=== PATIENT | male | born 1965 | race Hispanic/Latino ===

== ENCOUNTER 2017-04-16 20:54 | Inpatient (IN) | payer SELFPAY ==
[~2017-04-16 20:54] MED LIST: ISOVUE-370 76%-LOCM 1 ML ONE
--- NOTE | 2017-04-16 21:53 | RAD ---
RIGHT FOOT THREE VIEWS: 04/16/17 HISTORY: Injection of acid into the right foot. There is some mild arthritic changes in the first metatarsophalangeal joint. No radiopaque foreign toney dies are seen. there is soft tissue swelling on the dorsum of the foot. IMPRESSION: Soft tissue swelling of the dorsum of the foot. No radiopaque foreign bodies. POS: [facility]
[2017-04-16 22:09] LABS: INR-International Normal Ratio 1.5; PTT 33.2 SEC (22.9-36.1); Prothrombin Time 18.3 SEC (12.0-14.7)
[2017-04-16 22:24] LABS: CRP (Inflammatory) 21.21 mg/dL (= or < 0.5)
[2017-04-16 22:25] LABS: ALT (SGPT) 30 U/L (8-55); AST (SGOT) 43 U/L (5-34); Albumin 2.4 g/dL (3.5-5.0); Alkaline Phosphatase 138 U/L (40-150); Anion Gap 12 mmol/L (10-20); BUN (Urea Nitrogen) 29 mg/dL (8.9-20.6); Bilirubin, Total 1.4 mg/dL (0.2-1.2); Calc. Creatinine Clearance 0 mL/min (70-130); Carbon Dioxide 26 mmol/L (22-29); Chloride 101 mmol/L (98-107); Estimated GFR-MDRD Greater than 90; Globulin 4.5 g/dL (2.4-3.5); Glucose 139 mg/dL (70-105); Potassium 4.3 mmol/L (3.5-5.1); Protein, Total 6.9 g/dL (6.0-8.3); Sodium 135 mmol/L (136-145)
[2017-04-16] MEDS ORDERED: Clindamycin/D5W 900 MG in Premix Bag 1 BAG IVPB SCH (22:30)
[2017-04-16 22:35] LABS: Band 18 % (5-11); Hemoglobin 12.4 g/dL (14.0-18.0); Hypochromia SLIGHT = 6-15 cells (100X) (0-5/hpf); Lymphocytes 3 % (21-51); MDiff Complete? YES; Macrocytosis SLIGHT = 6-15 cells (100X) (0-5/hpf); Mean Corpuscular HGB CONC 32.1 g/dL (32.0-36.0); Mean Corpuscular Hemoglobin 31.3 pg (27.0-31.0); Mean Corpuscular Volume 97.6 fl (80.0-94.0); Mean Platelet Volume 7.2 fL (7.4-10.4); Monocytes 5 % (0-10); Neutrophil 74 % (42-75); Nucleated RBC 1 % (0); PLT Morphology Comment Appears Increased; Platelet Count 474 thou/uL (130-400); RBC Distribution Width 13.8 % (11.5-14.5); Red Blood Cell (RBC) Count 3.94 mill/uL (4.70-6.10); White Blood Cell (WBC) Count 36.5 thou/uL (4.8-10.8)
--- NOTE | 2017-04-16 22:43 | ULT ---
RIGHT LOWER EXTREMITY VENOUS DUPLEX EXAM: 04/16/17 HISTORY: Right foot edema and infection. Real time color doppler evaluation of the right lower extremity was performed from groin to calf. Thi s includes evaluation of the common femoral, superficial and profunda femoral, saphenous, popliteal a nd trifurcation veins. This shows a patent deep venous system. There is normal compressibility and au gmentation. There is no evidence of DVT. IMPRESSION: No evidence of DVT of the right lower extremity. POS: [facility]
[2017-04-16 23:19] LABS: Bilirubin Negative (Negative); Blood, Urine Negative (Negative); Clarity CLEAR (Clear); Glucose, Urine (Dipstick) Negative (Negative); Leukocyte Negative (Negative); Nitrite Negative (Negative); Protein, Urine (Dipstick) Negative (Neg-Trace); Specific Gravity, Urine 1.024 (1.002-1.036)
--- NOTE | 2017-04-16 23:19 | CT ---
CT OF RIGHT TIBIA AND FIBULA PERFORMED WITH INTRAVENOUS CONTRAST ENHANCEMENT: 04/16/17 HISTORY: Patient with right foot infection, erythema localized to the foot initially but now extending up the leg. There is subcutaneous edema changes which began at the level of the foot and extends all the way to t he level of the knee. There is a small knee joint effusion present. The muscle compartments appear re latively uninfected with the exception of some low attenuation change within the posterior tibialis m uscle near its origin proximally but there is no edema changes or signs that would suggest a compartm ent syndrome. There is a small amount of fluid seen between the gastroc and soleus muscle. No air is seen within the soft tissues to suggest this represents a necrotizing fasciitis. Review of osseous structures showed no signs that would suggest osteomyelitis. IMPRESSION: 1. Findings that are most compatible with diffuse cellulitis. The one exception to this is some low attenuation change within the proximal posterior tibialis muscle which is located directly anter ior to the popliteal artery and vein and their branches. There is no inflammatory change in this area but this low attenuation change could indicate involvement of this area. It would be a somewhat unus ual presentation given the lack of any surrounding findings. I do not see any signs of necrotizing fa sciitis. MRI may be helpful in further assessment to evaluate for a subtle early compartment changes if indicated. I do not see any features that suggest compartment syndrome at this time. 2. No signs of DVT within the calf. POS: [facility]
--- NOTE | 2017-04-17 01:15 | HP ---
PRIMARY CARE PHYSICIAN: City call admission. REASON FOR ADMISSION: Right foot cellulitis. HISTORY OF PRESENT ILLNESS: A 51-year-old male, Swazi speaking only, who went to [facility] for right foot swelling as well as right lower extremity swelling. He was having throbbing pain, he noticed erythema and swelling, which was gradually getting worse. His intensity of pain is about 8/10. Patient was not able to walk because of pain. He has history of gout and he was treated with Indocin and steroid. He was feeling subjective fever and chills. This patient was evaluated at [facility] and he was given vancomycin, tetanus toxoid , Zosyn, Rocephin, Zofran, and IV fluid and subsequently he was transferred to our hospital. In the emergency room, patient had foot x-ray which showed soft tissue swelling of the dorsum of the foot without any bony involvement. Lower extremity CT scan showed diffuse cellulitis and ultrasound was confirmed, no DVT. Routine blood tests showed white count 36,000 with bandemia. Patient also altamirano d significantly elevated inflammatory marker. In our emergency room, patient was given clindamycin a nd IV fluid and we are admitting this patient for further evaluation and treatment. ALLERGIES: No known drug allergies. CURRENT HOME MEDICATIONS: Indomethacin 50 mg twice daily p.r.n., prednisone tapering doses was presc ribed recently, Tylenol No.3 one tablet q.4 hours p.r.n. REVIEW OF SYSTEMS: The following complete review of systems was negative, unless otherwise mentioned in the HPI or below: Constitutional: Weight loss or gain, ability to conduct usual activities. Sk in: Rash, itching. Eyes: Double vision, pain. ENT/Mouth: Nose bleeding, neck stiffness, pain, te nderness. Cardiovascular: Palpitations, dyspnea on exertion, orthopnea. Respiratory: Shortness of breath, wheezing, cough, hemoptysis, fever or night sweats. Gastrointestinal: Poor appetite, abdom inal pain, heartburn, nausea, vomiting, constipation, or diarrhea. Genitourinary: Urgency, frequenc y, dysuria, nocturia. Musculoskeletal: Pain, swelling. Neurologic/Psychiatric: Anxiety, depressio n. Allergy/Immunologic: Skin rash, bleeding tendency. Please see my HPI for pertinent positives an d negatives. PAST MEDICAL HISTORY: Gout. PAST SURGICAL HISTORY: Reviewed and negative. PAST PSYCHIATRIC HISTORY: Reviewed and negative. SOCIAL HISTORY: Patient is a former drug abuser. He abused marijuana. His last marijuana abuse abo ut 2 years ago. He drinks alcohol socially. He smokes cigarettes about a half pack per day. FAMILY HISTORY: No strong family history of premature coronary artery disease, stroke, or cancer. EMERGENCY ROOM COURSE: Patient is given vancomycin and clindamycin. The patient is given Zosyn, Lul ephin, tetanus toxoid, and IV fluid in the emergency room. PHYSICAL EXAMINATION: VITAL SIGNS: On arrival to our emergency room, blood pressure 120/69, pulse 70, respiratory rate 20, temperature 97.6, saturation 100% on room air, weight 77.1 kilograms. GENERAL: Patient is currently alert, awake, in no acute distress. HEAD: Normocephalic, atraumatic. EYES: Pupils round, reactive to light. Extraocular muscle intact. ENT: Oropharynx within normal limits. Moist mucous membranes. No oral lesions. No pharyngeal eryt madie, no exudate. NECK: Supple. No JVD, no thyromegaly, no carotid bruit, no jugular venous distention. LUNGS: Clear to auscultation without any rhonchi or rales. CARDIAC: S1, S2 regular without any murmur. ABDOMEN: Soft, bowel sounds present, nontender, nondistended. No organomegaly, no mass, no suprapub ic tenderness. BACK: Unremarkable. No CVA tenderness. EXTREMITIES: Upper extremity: Passive movement of all joints are normal. Lower extremity: Right l ower extremity is erythematous, swollen, tender. The patient does have 5-6 bullae at the right foot. Patient has bullae with the pus. NEUROLOGIC: Nonfocal examination. Patient moves all 4 limbs. SKIN: Noted cellulitis picture on the right foot. HEMATOLOGIC: No lymphadenopathy. PSYCHIATRIC: Normal affect. SIGNIFICANT LABORATORY AND DIAGNOSTIC DATA: CBC: WBC 36.5, hemoglobin 12.4, platelet 474 with bande alicja. INR 1.5. BMP: Sodium 135, potassium 4.3, chloride 101, carbon dioxide 26, anion gap 12, BUN 2 9, creatinine 0.82, glucose 139. Lactic acid 2.1, calcium 8.0, magnesium 2.0, AST 43, ALT 30, alkali ne phosphatase 138, albumin 2.4. Urinalysis normal. Foot x-ray showed soft tissue swelling. Lower extremities CT scan showed diffuse cellulitis of right lower extremity. Ultrasound negative for DVT. ASSESSMENT AND PLAN: 1. Right foot cellulitis. 2. Sepsis. 3. Coagulopathy. 4. Hypoalbuminemia. 5. Abnormal liver function tests. 6. History of gout. 7. History of tobacco and alcohol abuse. PLAN: Admission to medical floor, Orthopedic consultation, and they will decide about I and D with b road spectrum antibiotic therapy with vancomycin and Zosyn. Dr. Ramsey will be consulted. Pain contr ol with morphine p.r.n. basis. We will repeat CBC, CMP tomorrow. We will also check hepatitis profi le. We will check uric acid tomorrow. Deep venous thrombosis prophylaxis. SCD boots. Gastrointest inal prophylaxis, Pepcid 20 mg p.o. b.i.d. CODE STATUS: The patient is FULL CODE. Patient does not have any surrogate decision maker. Disposition plan based on clinical course. We are expecting patient's stay in hospital more than 2 m idnights. Plan of care discussed with the patient in detail.
[2017-04-17] MEDS ORDERED: Acetaminophen 325 MG TAB PO PRN (01:52)
[2017-04-17] MEDS ORDERED: Milk Of Magnesia 30 ML UDCUP PO PRN (01:52)
[2017-04-17] MEDS ORDERED: Senokot 8.6 MG TAB PO PRN (01:52)
[2017-04-17] MEDS ORDERED: hydrALAZINE 20 MG/ML VIAL SLOW IVP PRN (01:52)
[2017-04-17] MEDS ORDERED: Loperamide HCl 2 MG CAP PO PRN (01:52)
[2017-04-17] MEDS: Sodium Chloride 0.9% 1,000 ML IV SCH ×4 (02:14→23:48)
[2017-04-17 02:23] LABS: Lactic Acid 2.4 mmol/L (0.5-2.2)
[2017-04-17 05:04] LABS: ALT (SGPT) 28 U/L (8-55); AST (SGOT) 55 U/L (5-34); Alkaline Phosphatase 113 U/L (40-150); Anion Gap 14 mmol/L (10-20); BUN (Urea Nitrogen) 25 mg/dL (8.9-20.6); Bilirubin, Total 1.1 mg/dL (0.2-1.2); Calc. Creatinine Clearance 0 mL/min (70-130); Calcium 7.8 mg/dL (7.8-10.44); Carbon Dioxide 24 mmol/L (22-29); Chloride 104 mmol/L (98-107); Estimated GFR-MDRD Greater than 90; Globulin 4.3 g/dL (2.4-3.5); Glucose 108 mg/dL (70-105); Potassium 4.8 mmol/L (3.5-5.1); Protein, Total 6.3 g/dL (6.0-8.3); Sodium 137 mmol/L (136-145); Uric Acid 4.2 mg/dL (3.5-7.2)
[2017-04-17 05:37] LABS: Band 11 % (5-11); Hemoglobin 11.3 g/dL (14.0-18.0); Lymphocytes 9 % (21-51); MDiff Complete? YES; Macrocytosis SLIGHT = 6-15 cells (100X) (0-5/hpf); Mean Corpuscular HGB CONC 33.2 g/dL (32.0-36.0); Mean Corpuscular Hemoglobin 32.7 pg (27.0-31.0); Mean Corpuscular Volume 98.5 fl (80.0-94.0); Mean Platelet Volume 7.9 fL (7.4-10.4); Metamyelocyte 3 % (0-0); Monocytes 3 % (0-10); Myelocyte 1 % (0-0); Neutrophil 73 % (42-75); PLT Morphology Comment Appears Adequate; Platelet Count 409 thou/uL (130-400); RBC Distribution Width 13.9 % (11.5-14.5); Red Blood Cell (RBC) Count 3.47 mill/uL (4.70-6.10); White Blood Cell (WBC) Count 34.3 thou/uL (4.8-10.8)
[2017-04-17 06:24] VITALS: BMI 29.1
[2017-04-17] MEDS: Piperacillin/Tazobactam 3.375 GM in Sodium Chloride 0.9% 100 ML IVPB SCH ×4 (06:29→23:47)
[2017-04-17] MEDS: HYDROcodone/Acetaminophen 10/325 mg Tablet PO PRN ×2 (11:33→23:48)
[2017-04-17] MEDS: Vancomycin HCl 1.5 GM in Sodium Chloride 0.9% 250 ML 300 ML IVPB SCH ×2 (11:34→20:32)
--- NOTE | 2017-04-17 11:38 | PDOC.PN ---
- Subjective Encounter Start Date: 04/17/17 Encounter Start Time: 07:15 Subjective: has pain in right foot, has drainage of purulent material from blisters ove -: -r lateral ankle - Objective Resuscitation Status: Resuscitation Status FULL:Full Resuscitation MAR Reviewed: Yes Vital Signs & Weight: Vital Signs (12 hours) Temp Pulse Resp BP Pulse Ox 04/17/17 07:50 97.4 F L 89 24 H 112/67 97 04/17/17 04:00 97.9 F 84 16 109/66 98 04/17/17 01:52 98.5 F 78 16 98 Weight Weight 169 lb 15.622 oz Result Diagrams: 04/17/17 03:39 04/17/17 03:39 Phys Exam - Physical Examination HEENT: PERRLA, moist MMs Neck: no JVD, supple Respiratory: no wheezing, no rales Cardiovascular: RRR, no significant murmur Gastrointestinal: soft, non-tender, positive bowel sounds Musculoskeletal: pulses present, edema present right ankle multiple blisters with purulence, edema and erythema++ Neurological: non-focal, moves all 4 limbs Psychiatric: A&O x 3 Dx/Plan (1) Sepsis Code(s): A41.9 - SEPSIS, UNSPECIFIED ORGANISM Status: Acute Qualifiers: Sepsis type: sepsis due to unspecified organism Qualified Code(s): A41.9 - Sepsis, unspecified organism (2) Foot abscess, right Code(s): L02.611 - CUTANEOUS ABSCESS OF RIGHT FOOT Status: Acute (3) Cellulitis of right lower limb Code(s): L03.115 - CELLULITIS OF RIGHT LOWER LIMB Status: Acute (4) Gout Code(s): M10.9 - GOUT, UNSPECIFIED Status: Chronic Qualifiers: Gout site: unspecified site (5) Alcohol abuse Code(s): F10.10 - ALCOHOL ABUSE, UNCOMPLICATED Status: Chronic Comment: drinks 4-6 beers/day (6) Tobacco abuse Code(s): Z72.0 - TOBACCO USE Status: Chronic (7) Hypoalbuminemia due to protein-calorie malnutrition Code(s): E46 - UNSPECIFIED PROTEIN-CALORIE MALNUTRITION Status: Chronic Comment: and alc abuse - Plan urgent MRI to evaluate foot and ankle area for debridement -: has been consulted -: is on vanc and zosyn -: toradol, morphine, norco prn -: has alb of 2.0 likely due to poor nutrition and alc abuse * . Review of Systems - Medications/Allergies Allergies/Adverse Reactions: Allergies Allergy/AdvReac Type Severity Reaction Status Date / Time No Known Allergies Allergy Unverified 04/16/17 22:20 Medications: Current Medications Acetaminophen (Tylenol) 650 mg PO Q4H PRN PRN Reason: Headache/Fever or Pain Hydrocodone Bitart/Acetaminophen ([place] 10/325) 1 tab PO Q4H PRN PRN Reason: Moderate Pain (4-6) Last Admin: 04/17/17 11:33 Dose: 1 tab Al Hydroxide/Mg Hydroxide (Maalox) 30 ml PO Q6H PRN PRN Reason: Heartburn or Indigestion Cyanocobalamin (Vitamin B-12) 1,000 mcg PO DAILY [facility] Enoxaparin Sodium (Lovenox) 40 mg SC 0900 [facility] Famotidine (Pepcid) 20 mg PO BID [facility] Folic Acid (Folvite) 1 mg PO DAILY [facility] Hydralazine HCl (Apresoline) 10 mg SLOW IVP Q4H PRN PRN Reason: Systolic BP > 180 Sodium Chloride (Normal Saline 0.9%) 1,000 mls @ 125 mls/hr IV .Q8H [facility] Last Admin: 04/17/17 02:14 Dose: 1,000 mls Piperacillin Sod/Tazobactam (Sod 3.375 gm/ Sodium Chloride) 100 mls @ 200 mls/ hr IVPB Q6HR [facility] Last Admin: 04/17/17 06:29 Dose: 100 mls Vancomycin HCl 1.5 gm/ Sodium (Chloride) 300 mls @ 200 mls/hr IVPB Q12HR [facility] Last Admin: 04/17/17 11:34 Dose: 300 mls Influenza Virus Vaccine (Fluzone Quad [id number] Syringe) 0.5 ml IM .ONCE ONE Stop: 04/18/17 09:01 Ketorolac Tromethamine (Toradol) 15 mg IVP Q6H PRN PRN Reason: Pain Stop: 04/22/17 01:53 Loperamide HCl (Imodium) 2 mg PO PRN PRN PRN Reason: Diarrhea/Loose Stools Magnesium Hydroxide (Milk Of Magnesium) 30 ml PO DAILYPRN PRN PRN Reason: Constipation Miscellaneous Medication (Pharmacy To Dose) 0 each IVPB PRN PRN PRN Reason: VANC Pharmacy to Dose Morphine Sulfate (Morphine) 4 mg SLOW IVP Q4H PRN PRN Reason: Severe Pain (7-10) Ondansetron HCl (Zofran Odt) 4 mg PO Q6H PRN PRN Reason: Nausea/Vomiting Ondansetron HCl (Zofran) 4 mg IVP Q6H PRN PRN Reason: Nausea/Vomiting Pneumococcal Polyvalent Vaccine (Pneumovax 23) 0.5 ml IM .ONCE ONE Stop: 04/18/17 09:01 Saccharomyces Boulardii (Florastor) 250 mg PO DAILY [facility] Senna (Senokot) 2 tab PO HSPRN PRN PRN Reason: Constipation Sodium Chloride (Flush - Normal Saline) 10 ml IVF Q12HR [facility] Last Admin: 04/17/17 11:35 Dose: 10 ml Sodium Chloride (Flush - Normal Saline) 10 ml IVF PRN PRN PRN Reason: Saline Flush
--- NOTE | 2017-04-17 13:59 | MRI ---
MRI OF RIGHT TIBIA AND FIBULA PERFORMED WITH AND WITHOUT CONTRAST ENHANCEMENT: History: Patient presented with right foot infection, now with diffuse swelling to calf. Comparison: CT done yesterday. FINDINGS: Exam quality is somewhat limited by motion artifact. There is marked superficial edema changes. There are also myositis type changes with involvement to s ome extent all of the calf musculature with greater involvement involving the extensor halitus longus and gastroc muscles, and to a lesser extent the psoas muscles. The most pronounced edema changes are associated with a deep posterior compartment involving the posterior tibials tendon. It shows edema changes with somewhat dumbbell shaped foci of increased T2 signal change near the proximal origin of the posterior tibials tendon and in these areas the muscle shows some foci that do not appear to enha nce corresponding these areas of higher T2 signal change which would suggest an early foci of myonecr osis. There is some mild bulging of the facial planes in this region. There is edema changes which ex tend between the gastroc and psoas musculature. IMPRESSION: 1. Diffuse subcutaneous edema changes compatible with cellulitis changes. No signs of any localized f luid collection to suggest any type of abscess. 2. Diffuse myositis changes involving all of the compartment. The most worrisome areas are in the ant erior lateral compartment involving the extensor halitus longus muscle which shows bulging but no fra nk herniation through the fascia. The most worrisome areas within the deep posterior compartment wher e there is findings that would suggest an early myonecrosis change of the proximal posterior tibials muscle. These findings were discussed with DR. Yang. [place] [facility]
[2017-04-17] MEDS: Folic Acid 1 MG TAB PO SCH (14:28)
[2017-04-17] MEDS: Saccharomyces boulardii 250 MG CAP PO SCH (14:28)
[2017-04-17] MEDS: Famotidine 20 MG TAB PO SCH ×2 (14:28→20:31)
[2017-04-17] MEDS: Cyanocobalamin (Vitamin B-12) 1,000 MCG TAB PO SCH (14:29)
[2017-04-17 15:30] LABS: Syphilis Antibody Nonreactive (Nonreactive); Syphilis Antibody Index 0.06 S/CO (<1.00 Non-Reactive)
[2017-04-17 15:31] LABS: HIV (1/2) Antibody/Antigen Non-Reactive (NonReactive); HIV 1/2 INDEX 0.12 S/CO (<1.00); Hep C IgG Ab Non-Reactive (NonReactive); Hep C Index 0.16 S/CO (0-0.79)
[2017-04-17] MEDS ORDERED: Gadobenate Dimeglumine 529 MG/1 ML (20ML VIAL) ONE (16:55)
[2017-04-17] MEDS: Morphine 5 MG/ML SYRINGE SLOW IVP PRN (18:40)
[2017-04-17] MEDS: Enoxaparin Sodium 40 MG/0.4 ML SYRINGE SC SCH (18:44)
--- NOTE | 2017-04-17 21:26 | CON ---
DATE OF CONSULTATION: 04/17/2017 REASON FOR CONSULTATION: Right foot inflammatory process. HISTORY OF PRESENT ILLNESS: A 51-year-old first admission to this hospital who has a history of alco hol dependency syndrome, chronic smoking and reportedly gout who developed right foot inflammatory ch anges over the past few days, was brought in and admitted after broad spectrum antimicrobial therapy administration in [place] [facility]. He denies headaches, no visual symptoms, sore throat, odynophagia , dysphagia, no cough or sputum production or chest pain. He had been given Indocin and prednisone t apering doses previously. No diarrhea, no genitourinary symptoms, no other joint symptoms. PAST MEDICAL HISTORY: Gout, chronic smoking, alcohol dependency syndrome. 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 Drinks daily, smokes daily. FAMILY HISTORY: Noncontributory. ALLERGIES: None. CURRENT MEDICATIONS: [place], Maalox, Lovenox, Pepcid, Folvite, Apresoline, Fluzone, Imodium, Toradol, Zosyn, and vancomycin. PHYSICAL EXAMINATION: VITAL SIGNS: T-max 98.5, blood pressure 112/67, pulse 81, respirations 22, O2 sat 98%. GENERAL: Appears in no distress. SKIN: Shows the right foot inflammatory changes with swelling. The blistering in the medial aspect, large blisters with purulent exudate within, we submitted the sample for cultures of one of them. T here is erythema in the medial aspect wrapping around the foot, the mid foot region, there is a littl e bit of blistering formation in the mid foot region at the arch. HEENT: No lymphadenopathy. Ocular movements are conjugate. Oral cavity with quite a few teeth in p lace with some decay. NECK: Supple, no jugular venous distention. LUNGS: With symmetric clear breath sounds. HEART: S1, S2, regular rate. No S3 or S4. No murmurs. ABDOMEN: Soft. Not distended or tender. No ascites. No bladder distention. EXTREMITIES: No other joint inflammatory process. Pulses are 1+ in dorsalis pedis. Cap refill norm al. NEUROLOGIC: Cognitive function appears to be intact. LABORATORY DATA: White cell count was 36 now 34,000; hemoglobin 11, platelets 409 with 18% bands, no w 11%, creatinine 0.74. Sodium 137, CO2 of 24, AST 43 and 55. ALT and alkaline phosphatase normal. CK 49. CRP 21, albumin 2.4. Urinalysis normal. Microbiology with 2 sets of negative blood culture s thus far. We have an MRI which was completed just recently and it showed subcutaneous edema, cellu litis, diffuse myositis in all the compartments of the foot and anterolateral compartment involving t he extensor longus muscle with bulging of the fascia, early myonecrosis. ASSESSMENT: Inflammatory process right foot with evidence of abscess formation and muscle involvemen t, pyomyositis. DISCUSSION: Patient has adequate vascular supply and will need surgical debridement. The most likel y culprit here is Staphylococcus aureus including the possibility of MRSA. Continue current antimicr obials, surgical debridement and define need for further intervention. No evidence of septic arthrit is or osteomyelitis at this point in time. Check hepatitis C and HIV serology as well as RPR.
--- NOTE | 2017-04-18 03:09 | CON ---
DATE OF CONSULTATION: 04/17/2017 HISTORY OF PRESENT ILLNESS: Mr. Eliel Madrid is a 51-year-old male who states that he was having no problems with his right foot and ankle 15 days ago, but approximately 2 weeks ago he began having pain, swelling, and redness in the right foot and ankle. He does not know of any history of trauma or insect bite or anything that could have caused the problem but he developed the erythema an d swelling which gradually got worse. He was seen in [place] [facility] and was given vanco mycin, Zosyn, Rocephin, Zofran, IV fluids, and then was transferred here for further evaluation. The patient had a CT scan performed. The leg showed cellulitis of right foot and ankle, but no DVT. MR I was performed which showed a diffuse subcutaneous edema change compatible with cellulitis changes, no signs of localized fluid collection to suggest any type of abscess. There was diffuse myositis ch anges involving all of the compartments most worrisome areas are in the anterior lateral compartment involving the extensor hallucis longus muscle which shows bulging, but no iggy herniation through th e fascia and there was worrisome areas in the deep posterior compartment where there were findings th at suggest an early myonecrosis changes of the proximal posterior tibialis muscle. The patient has b een on IV antibiotics since he was admitted today. He has not had any fever recorded since he has be en here today and his vital signs have been fine. PAST MEDICAL HISTORY: Allergies, none. CURRENT MEDICATIONS: Indomethacin, prednisone with tapering doses, Tylenol #3. MEDICAL HISTORY: The patient has a history of gout. PAST SURGICAL HISTORY: Negative. SOCIAL HISTORY: The patient is a former drug abuser, abused marijuana. Drinks alcohol socially, smo kes cigarettes about a half pack per day. PHYSICAL EXAMINATION: GENERAL: Patient has been afebrile. VITAL SIGNS: Have been stable. EXTREMITIES: Examination of the right foot and ankle shows tenderness and swelling in the right ankl e. There is an open wound and area of the tarsal canal along the medial aspect of the mid foot. The re is also a fluctuant area on the medial aspect of the mid foot laterally and into the lateral aspec t of the ankle. The patient is able to flex and extend his toes, although they have decreased range of motion, probably secondary to swelling. The left foot and ankle are normal in appearance. There is no swelling or erythema. No skin wounds. IMPRESSION: Severe cellulitis with formation of abscesses along the medial and lateral aspect of the right ankle and foot. PLAN: The patient has been started on antibiotics. He will continue with that. I will take him to the operating room tomorrow where the abscesses will be opened and the foot and ankle will be irrigat ed.
[2017-04-18] MEDS: Piperacillin/Tazobactam 3.375 GM in Sodium Chloride 0.9% 100 ML IVPB SCH ×2 (05:00→11:15)
[2017-04-18] MEDS: Morphine 5 MG/ML SYRINGE SLOW IVP PRN (07:59)
[2017-04-18] MEDS: Ketorolac Tromethamine 30 MG/ML VIAL IVP PRN ×2 (07:59→20:02)
[2017-04-18 08:54] LABS: Hemoglobin 11.2 g/dL (14.0-18.0); Mean Corpuscular Hemoglobin 31.6 pg (27.0-31.0); Mean Corpuscular Volume 98.7 fl (80.0-94.0); Mean Platelet Volume 7.2 fL (7.4-10.4); Platelet Count 424 thou/uL (130-400); RBC Distribution Width 13.9 % (11.5-14.5); Red Blood Cell (RBC) Count 3.53 mill/uL (4.70-6.10); White Blood Cell (WBC) Count 30.8 thou/uL (4.8-10.8)
[2017-04-18] MEDS: Vancomycin HCl 1.5 GM in Sodium Chloride 0.9% 250 ML 300 ML IVPB SCH ×3 (08:58→20:41)
[2017-04-18] MEDS: Saccharomyces boulardii 250 MG CAP PO SCH (09:00)
[2017-04-18] MEDS ORDERED: FLU VACC QS2017-18 36 mo. & older 0.5 ML SYRINGE IM ONE (09:00)
[2017-04-18] MEDS: Folic Acid 1 MG TAB PO SCH (09:01)
[2017-04-18] MEDS: Famotidine 20 MG TAB PO SCH ×2 (09:01→19:59)
[2017-04-18] MEDS: Cyanocobalamin (Vitamin B-12) 1,000 MCG TAB PO SCH (09:02)
[2017-04-18] MEDS: Enoxaparin Sodium 40 MG/0.4 ML SYRINGE SC SCH (09:02)
[2017-04-18 09:12] LABS: Anion Gap 9 mmol/L (10-20); BUN (Urea Nitrogen) 18 mg/dL (8.9-20.6); Calc. Creatinine Clearance 141 mL/min (70-130); Calcium 7.5 mg/dL (7.8-10.44); Carbon Dioxide 23 mmol/L (22-29); Chloride 106 mmol/L (98-107); Estimated GFR-MDRD Greater than 90; Glucose 90 mg/dL (70-105); Potassium 4.6 mmol/L (3.5-5.1); Sodium 133 mmol/L (136-145)
[2017-04-18 09:22] LABS: Band 15 % (5-11); Lymphocytes 8 % (21-51); MDiff Complete? YES; Monocytes 1 % (0-10); Myelocyte 3 % (0-0); Neutrophil 72 % (42-75); PLT Morphology Comment Appears Increased; Reactive Lymphocytes 1 % (0-10); Toxic Granulation SLIGHT
[2017-04-18] MEDS ORDERED: Ondansetron HCl/PF 4 MG/2 ML Vial ONE (12:02)
[2017-04-18] MEDS ORDERED: PROPOFOL 200 MG/20 ML VIAL ONE (12:02)
[2017-04-18] MEDS ORDERED: Ketorolac Tromethamine 30 MG/ML VIAL ONE (12:02)
[2017-04-18] MEDS ORDERED: Fentanyl 100 MCG/2 ML VIAL ONE ×4 (13:00→15:37)
--- NOTE | 2017-04-18 13:20 | PDOC.PN ---
- Subjective Encounter Start Date: 04/18/17 Encounter Start Time: 07:00 Subjective: no pain now -: feels better, is npo for debridement today - Objective Resuscitation Status: Resuscitation Status FULL:Full Resuscitation MAR Reviewed: Yes Vital Signs & Weight: Vital Signs (12 hours) Temp Pulse Resp BP Pulse Ox 04/18/17 12:00 98.3 F 79 16 133/73 98 04/18/17 09:31 98.4 F 87 16 97 04/18/17 07:59 98.4 F 87 16 111/74 97 04/18/17 04:00 98.4 F 90 16 115/64 97 Weight Admit Weight 169 lb 15.616 oz Weight 169 lb 15.616 oz I&O: 04/17/17 04/18/17 04/19/17 06:59 06:59 06:59 Intake Total 3640 Output Total 1300 Balance 2340 Result Diagrams: 04/18/17 08:35 04/18/17 08:35 Phys Exam - Physical Examination HEENT: PERRLA, moist MMs Neck: no JVD, supple Respiratory: no wheezing, no rales Cardiovascular: RRR, no significant murmur Gastrointestinal: soft, no distention, positive bowel sounds Musculoskeletal: pulses present, edema present right foot in dressing Neurological: non-focal, moves all 4 limbs Psychiatric: A&O x 3 Dx/Plan (1) Sepsis Code(s): A41.9 - SEPSIS, UNSPECIFIED ORGANISM Status: Acute Qualifiers: Sepsis type: sepsis due to unspecified organism Qualified Code(s): A41.9 - Sepsis, unspecified organism (2) Foot abscess, right Code(s): L02.611 - CUTANEOUS ABSCESS OF RIGHT FOOT Status: Acute (3) Cellulitis of right lower limb Code(s): L03.115 - CELLULITIS OF RIGHT LOWER LIMB Status: Acute (4) Gout Code(s): M10.9 - GOUT, UNSPECIFIED Status: Chronic Qualifiers: Gout site: unspecified site (5) Alcohol abuse Code(s): F10.10 - ALCOHOL ABUSE, UNCOMPLICATED Status: Chronic Comment: drinks 4-6 beers/day (6) Tobacco abuse Code(s): Z72.0 - TOBACCO USE Status: Chronic (7) Hypoalbuminemia due to protein-calorie malnutrition Code(s): E46 - UNSPECIFIED PROTEIN-CALORIE MALNUTRITION Status: Chronic Comment: and alc abuse - Plan to OR today for debridement -: on vanc and zosyn -: await final wound culture results -: morphine prn, had tmax of 100 -: to amb as tolerated, watch for alc withdrawal * . Review of Systems - Medications/Allergies Allergies/Adverse Reactions: Allergies Allergy/AdvReac Type Severity Reaction Status Date / Time No Known Allergies Allergy Unverified 04/16/17 22:20 Medications: Current Medications Acetaminophen (Tylenol) 650 mg PO Q4H PRN PRN Reason: Headache/Fever or Pain Hydrocodone Bitart/Acetaminophen ([place] 10/325) 1 tab PO Q4H PRN PRN Reason: Moderate Pain (4-6) Last Admin: 04/17/17 23:48 Dose: 1 tab Al Hydroxide/Mg Hydroxide (Maalox) 30 ml PO Q6H PRN PRN Reason: Heartburn or Indigestion Cyanocobalamin (Vitamin B-12) 1,000 mcg PO DAILY [facility] Last Admin: 04/18/17 09:02 Dose: Not Given Enoxaparin Sodium (Lovenox) 40 mg SC 0900 [facility] Last Admin: 04/18/17 09:02 Dose: Not Given Famotidine (Pepcid) 20 mg PO BID [facility] Last Admin: 04/18/17 09:01 Dose: Not Given Folic Acid (Folvite) 1 mg PO DAILY [facility] Last Admin: 04/18/17 09:01 Dose: Not Given Hydralazine HCl (Apresoline) 10 mg SLOW IVP Q4H PRN PRN Reason: Systolic BP > 180 Sodium Chloride (Normal Saline 0.9%) 1,000 mls @ 125 mls/hr IV .Q8H [facility] Last Admin: 04/17/17 23:48 Dose: 1,000 mls Piperacillin Sod/Tazobactam (Sod 3.375 gm/ Sodium Chloride) 100 mls @ 200 mls/ hr IVPB Q6HR [facility] Last Admin: 04/18/17 11:15 Dose: 100 mls Vancomycin HCl 1.5 gm/ Sodium (Chloride) 300 mls @ 200 mls/hr IVPB Q12HR [facility] Last Admin: 04/18/17 08:58 Dose: 300 mls Ketorolac Tromethamine (Toradol) 15 mg IVP Q6H PRN PRN Reason: Pain Stop: 02/16/18 01:53 Last Admin: 04/18/17 07:59 Dose: 15 mg Loperamide HCl (Imodium) 2 mg PO PRN PRN PRN Reason: Diarrhea/Loose Stools Magnesium Hydroxide (Milk Of Magnesium) 30 ml PO DAILYPRN PRN PRN Reason: Constipation Miscellaneous Medication (Pharmacy To Dose) 0 each IVPB PRN PRN PRN Reason: VANC Pharmacy to Dose Morphine Sulfate (Morphine) 4 mg SLOW IVP Q4H PRN PRN Reason: Severe Pain (7-10) Last Admin: 04/18/17 07:59 Dose: 4 mg Ondansetron HCl (Zofran Odt) 4 mg PO Q6H PRN PRN Reason: Nausea/Vomiting Ondansetron HCl (Zofran) 4 mg IVP Q6H PRN PRN Reason: Nausea/Vomiting Saccharomyces Boulardii (Florastor) 250 mg PO DAILY [facility] Last Admin: 04/18/17 09:00 Dose: Not Given Senna (Senokot) 2 tab PO HSPRN PRN PRN Reason: Constipation Sodium Chloride (Flush - Normal Saline) 10 ml IVF Q12HR [facility] Last Admin: 04/18/17 09:00 Dose: 10 ml Sodium Chloride (Flush - Normal Saline) 10 ml IVF PRN PRN PRN Reason: Saline Flush
--- NOTE | 2017-04-18 14:25 | OP ---
DATE OF PROCEDURE: 04/18/2017 PREOPERATIVE DIAGNOSES: Severe infection of the right foot and ankle with abscesses on the medial an d lateral aspect of the right foot and ankle. POSTOPERATIVE DIAGNOSES: The patient has abscesses involving the tarsal canal and the lateral aspect of the right ankle region in the area of the peroneal tendons, also had abscess on the plantar media l aspect of the right foot and also on the dorsal aspect of the forefoot. PROCEDURE: Incision and drainage, irrigation and debridement of abscess of the right foot and ankle. SURGEON: Antonio Sharif M.D. ANESTHESIA: General. TECHNIQUE: The patient was taken to the operating room, placed in the supine position. Satisfactory general anesthesia was performed. The right foot and leg were sterilely prepped and draped in the u sual fashion. Exsanguination was not performed because of the severity of the infection. The open w ound on the medial aspect of the ankle over the tarsal canal was opened more and the necrotic infecte d tissue was sharply removed. There was significant purulent drainage from the wound and the wound w as tracked up to the deep posterior compartment as well as along the tarsal canal. The patient also had a fluctuance on the dorsal aspect of the forefoot and 2 incisions were made, one between the firs t and second metatarsal region and also between the third and fourth metatarsal with blunt dissection , purulent drainage again was encountered and drained from the foot. There was an abscess on the edna ntar medial aspect of the mid foot. Incision was made along the medial aspect of the mid foot and th is abscess, also with purulent drainage was drained, also over the area of the peroneal tendons was o pened and again purulent drainage was encountered. To make sure an incision was made over the tarsal canal and the ankle joint was entered and there was no purulent drainage encountered. The wounds we re all copiously irrigated with antibiotic solution using the high-speed shrimp peeler. They were left o pened. Wound Care was nice and up to come in and treat all of the wounds and also put wound VACs ove r the area after which the patient was awakened, extubated, and transferred to the recovery room in s table condition. ESTIMATED BLOOD LOSS: 100 mL. COMPLICATIONS: None.
[2017-04-18] MEDS ORDERED: Promethazine HCl 25 MG/ML VIAL IM PRN (14:58)
[2017-04-18] MEDS ORDERED: Promethazine HCl 25 MG/ML VIAL SLOW IVP PRN (14:58)
[2017-04-18] MEDS ORDERED: Ondansetron HCl/PF 4 MG/2 ML Vial IVP PRN (14:58)
[2017-04-18] MEDS: Sodium Chloride 0.9% 1,000 ML IV SCH ×2 (17:42→18:34)
[2017-04-18] MEDS: cefTRIAXone\\ROCEPHIN 2 GM in Sodium Chloride 0.9% 100 ML IVPB SCH (17:42)
[2017-04-18] MEDS: HYDROcodone/Acetaminophen 10/325 mg Tablet PO PRN (17:46)
[2017-04-18] MEDS: Indomethacin 25 mg Capsule PO SCH (19:59)
[2017-04-18 20:33] LABS: Vancomycin, Trough 12.1 ug/mL
[2017-04-18] MEDS: Vancomycin HCl 1.75 GM in Sodium Chloride 0.9% 500 ML IVPB SCH (21:21)
[2017-04-19] MEDS: HYDROcodone/Acetaminophen 10/325 mg Tablet PO PRN ×4 (04:51→20:11)
[2017-04-19] MEDS: Sodium Chloride 0.9% 1,000 ML IV SCH ×2 (04:52→08:44)
[2017-04-19 05:10] LABS: Anion Gap 7 mmol/L (10-20); BUN (Urea Nitrogen) 17 mg/dL (8.9-20.6); Calc. Creatinine Clearance 135 mL/min (70-130); Calcium 7.1 mg/dL (7.8-10.44); Carbon Dioxide 25 mmol/L (22-29); Chloride 107 mmol/L (98-107); Estimated GFR-MDRD Greater than 90; Glucose 104 mg/dL (70-105); Potassium 3.8 mmol/L (3.5-5.1); Sodium 135 mmol/L (136-145)
[2017-04-19 05:49] LABS: Band 10 % (5-11); Hemoglobin 9.6 g/dL (14.0-18.0); Lymphocytes 5 % (21-51); MDiff Complete? YES; Macrocytosis SLIGHT = 6-15 cells (100X) (0-5/hpf); Mean Corpuscular Hemoglobin 31.7 pg (27.0-31.0); Mean Platelet Volume 7.1 fL (7.4-10.4); Metamyelocyte 1 % (0-0); Monocytes 4 % (0-10); Neutrophil 79 % (42-75); PLT Morphology Comment Appears Adequate; Platelet Count 379 thou/uL (130-400); RBC Distribution Width 13.9 % (11.5-14.5); Reactive Lymphocytes 1 % (0-10); Red Blood Cell (RBC) Count 3.02 mill/uL (4.70-6.10); White Blood Cell (WBC) Count 28.3 thou/uL (4.8-10.8)
[2017-04-19] MEDS: Saccharomyces boulardii 250 MG CAP PO SCH (08:37)
[2017-04-19] MEDS: Famotidine 20 MG TAB PO SCH ×2 (08:37→20:11)
[2017-04-19] MEDS: Folic Acid 1 MG TAB PO SCH (08:38)
[2017-04-19] MEDS: Cyanocobalamin (Vitamin B-12) 1,000 MCG TAB PO SCH (08:38)
[2017-04-19] MEDS: Indomethacin 25 mg Capsule PO SCH ×2 (08:38→20:11)
[2017-04-19] MEDS: predniSONE 20 MG TAB PO SCH (08:38)
[2017-04-19] MEDS: Vancomycin HCl 1.75 GM in Sodium Chloride 0.9% 500 ML IVPB SCH ×2 (10:16→20:10)
[2017-04-19] MEDS: Enoxaparin Sodium 40 MG/0.4 ML SYRINGE SC SCH (10:16)
--- NOTE | 2017-04-19 11:36 | PDOC.PN ---
- Subjective Encounter Start Date: 04/19/17 Encounter Start Time: 10:15 Subjective: awake and oriented -: had debridement yesterday - Objective Resuscitation Status: Resuscitation Status FULL:Full Resuscitation MAR Reviewed: Yes Vital Signs & Weight: Vital Signs (12 hours) Temp Pulse Resp BP Pulse Ox 04/19/17 08:40 98.1 F 86 18 98 04/19/17 08:20 98.1 F 86 18 121/73 98 04/19/17 04:00 98.3 F 80 16 111/61 96 04/19/17 00:00 97.2 F L 82 14 112/70 96 Weight Admit Weight 169 lb 15.616 oz Weight 169 lb 15.616 oz I&O: 04/18/17 04/19/17 04/20/17 06:59 06:59 06:59 Intake Total 3640 2450 Output Total 1300 675 Balance 2340 1775 Result Diagrams: 04/19/17 04:32 04/19/17 04:32 Phys Exam - Physical Examination HEENT: PERRLA, moist MMs Neck: no JVD, supple Respiratory: no wheezing, no rales Cardiovascular: RRR, no significant murmur Gastrointestinal: soft, non-tender, positive bowel sounds Musculoskeletal: pulses present right foot in wound vac, leg is more edematous today Neurological: non-focal, moves all 4 limbs Psychiatric: A&O x 3 Dx/Plan (1) Sepsis Code(s): A41.9 - SEPSIS, UNSPECIFIED ORGANISM Status: Acute Qualifiers: Sepsis type: sepsis due to unspecified organism Qualified Code(s): A41.9 - Sepsis, unspecified organism (2) Foot abscess, right Code(s): L02.611 - CUTANEOUS ABSCESS OF RIGHT FOOT Status: Acute Comment: s/ p debridement 04/18/2017 (3) Cellulitis of right lower limb Code(s): L03.115 - CELLULITIS OF RIGHT LOWER LIMB Status: Acute (4) Gout Code(s): M10.9 - GOUT, UNSPECIFIED Status: Chronic Qualifiers: Gout site: unspecified site (5) Alcohol abuse Code(s): F10.10 - ALCOHOL ABUSE, UNCOMPLICATED Status: Chronic Comment: drinks 4-6 beers/day (6) Tobacco abuse Code(s): Z72.0 - TOBACCO USE Status: Chronic (7) Hypoalbuminemia due to protein-calorie malnutrition Code(s): E46 - UNSPECIFIED PROTEIN-CALORIE MALNUTRITION Status: Chronic Comment: and alc abuse - Plan is on ceftriaxone and vanc -: had debridement yesterday, wound in vac -: right leg is more edematous this am, elevate over pillows -: watch for withdrawal, on folic acid and thiamine, ativan prn * . Review of Systems - Medications/Allergies Allergies/Adverse Reactions: Allergies Allergy/AdvReac Type Severity Reaction Status Date / Time No Known Allergies Allergy Unverified 04/16/17 22:20 Medications: Current Medications Acetaminophen (Tylenol) 650 mg PO Q4H PRN PRN Reason: Headache/Fever or Pain Acetaminophen/Codeine Phosphate (Tylenol #3) 1 tab PO Q4H PRN PRN Reason: Pain Hydrocodone Bitart/Acetaminophen ([place] 10/325) 1 tab PO Q4H PRN PRN Reason: Moderate Pain (4-6) Last Admin: 04/19/17 09:12 Dose: 1 tab Al Hydroxide/Mg Hydroxide (Maalox) 30 ml PO Q6H PRN PRN Reason: Heartburn or Indigestion Cyanocobalamin (Vitamin B-12) 1,000 mcg PO DAILY [facility] Last Admin: 04/19/17 08:38 Dose: 1,000 mcg Enoxaparin Sodium (Lovenox) 40 mg SC 0900 [facility] Last Admin: 04/19/17 10:16 Dose: 40 mg Famotidine (Pepcid) 20 mg PO BID [facility] Last Admin: 04/19/17 08:37 Dose: 20 mg Folic Acid (Folvite) 1 mg PO DAILY [facility] Last Admin: 04/19/17 08:38 Dose: 1 mg Hydralazine HCl (Apresoline) 10 mg SLOW IVP Q4H PRN PRN Reason: Systolic BP > 180 Sodium Chloride (Normal Saline 0.9%) 1,000 mls @ 125 mls/hr IV .Q8H [facility] Last Admin: 04/19/17 08:44 Dose: 1,000 mls Ceftriaxone Sodium 2 gm/ (Sodium Chloride) 100 mls @ 200 mls/hr IVPB 1700 [facility] Last Admin: 04/18/17 17:42 Dose: 100 mls Vancomycin HCl 1.75 gm/ Sodium (Chloride) 500 mls @ 250 mls/hr IVPB BID [facility] Last Admin: 04/19/17 10:16 Dose: 500 mls Indomethacin (Indocin) 100 mg PO BID [facility] Last Admin: 04/19/17 08:38 Dose: 100 mg Ketorolac Tromethamine (Toradol) 15 mg IVP Q6H PRN PRN Reason: Pain Stop: 04/22/17 01:53 Last Admin: 04/18/17 20:02 Dose: 15 mg Loperamide HCl (Imodium) 2 mg PO PRN PRN PRN Reason: Diarrhea/Loose Stools Magnesium Hydroxide (Milk Of Magnesium) 30 ml PO DAILYPRN PRN PRN Reason: Constipation Miscellaneous Medication (Pharmacy To Dose) 0 each IVPB PRN PRN PRN Reason: VANC Pharmacy to Dose Morphine Sulfate (Morphine) 4 mg SLOW IVP Q4H PRN PRN Reason: Severe Pain (7-10) Last Admin: 04/18/17 07:59 Dose: 4 mg Ondansetron HCl (Zofran Odt) 4 mg PO Q6H PRN PRN Reason: Nausea/Vomiting Ondansetron HCl (Zofran) 4 mg IVP Q6H PRN PRN Reason: Nausea/Vomiting Prednisone (Prednisone) 20 mg PO QAM-[facility] Last Admin: 04/19/17 08:38 Dose: 20 mg Saccharomyces Boulardii (Florastor) 250 mg PO DAILY [facility] Last Admin: 04/19/17 08:37 Dose: 250 mg Senna (Senokot) 2 tab PO HSPRN PRN PRN Reason: Constipation Sodium Chloride (Flush - Normal Saline) 10 ml IVF Q12HR [facility] Last Admin: 04/19/17 08:44 Dose: 10 ml Sodium Chloride (Flush - Normal Saline) 10 ml IVF PRN PRN PRN Reason: Saline Flush
--- NOTE | 2017-04-19 12:33 | PRG ---
DATE OF SERVICE: 04/19/2017 SUBJECTIVE: Mr. Madrid states that his right foot is feeling better. He underwent incision, draina ge, irrigation and debridement of multiple abscesses around the right foot and ankle. He currently i s in a wound VAC. The patient has been afebrile. Vital signs have been stable. His laboratory and microbiology shows abscesses were secondary to an alpha hemolytic streptococcus. PLAN: The patient will continue with wound care. Continue with IV antibiotics. Physical Therapy wi ll work with the patient getting him out of bed using crutches or walker. He needs to be nonweightbe aring on that right foot and ankle.
[2017-04-19] MEDS: cefTRIAXone\\ROCEPHIN 2 GM in Sodium Chloride 0.9% 100 ML IVPB SCH (17:00)
--- NOTE | 2017-04-19 20:12 | HP ---
DATE OF SERVICE: 04/19/2017 SUBJECTIVE: There is moderate pain, no respiratory symptoms, no abdominal pain, no diarrhea. OBJECTIVE: VITAL SIGNS: T-max 98.3 and now 97.3, blood pressure 130/76, pulse 64. Awake, alert, and oriented. LUNGS: Clear. HEART: S1, S2, regular rate. ABDOMEN: Soft. EXTREMITIES: The right foot with dressing was not removed. I discussed the case with Dr. Chante reynaga there is obvious abscess formation and various segments and compartments of his right foot. No obv ious joint involvement, though no evidence of osteomyelitis. I do not want doing the procedure on MR Bon. LABORATORY DATA: White cell count is 28.3, hemoglobin 9.6, platelets 379. Chemistries not remarkabl e. Microbiology with alpha hemolytic strep in 2 different samples with pending anaerobic cultures. Currently on Rocephin and vancomycin to be continued. ASSESSMENT AND DISCUSSION: Right foot cellulitis with multiple abscess formation in various muscle g roups in different compartments, pyomyositis with evidence of adequate vascular supply, no necrotizin g features, alpha hemolytic strep has been retrieved from the site. Yet to be further identified and susceptibility tested. No evidence of septic arthritis or osteomyelitis. We will wait for the iden tification of the organism to get a better idea as to what the pathophysiology of this process was if it is a hematogenous. Distribution which appears to be more likely in view with the widely dissemin ated areas of involvement or portal of entry, some more that then disseminated for the different comp artments. Continue Rocephin and vancomycin for the time being.
[2017-04-20] MEDS: HYDROcodone/Acetaminophen 10/325 mg Tablet PO PRN ×3 (04:38→20:20)
[2017-04-20 06:11] LABS: Band 5 % (5-11); Eosinophils 1 % (0-10); Hemoglobin 9.8 g/dL (14.0-18.0); Lymphocytes 12 % (21-51); MDiff Complete? YES; Mean Corpuscular HGB CONC 32.8 g/dL (32.0-36.0); Mean Corpuscular Hemoglobin 32.3 pg (27.0-31.0); Mean Corpuscular Volume 98.5 fl (80.0-94.0); Mean Platelet Volume 7.2 fL (7.4-10.4); Metamyelocyte 2 % (0-0); Monocytes 4 % (0-10); Neutrophil 76 % (42-75); PLT Morphology Comment Appears Adequate; Platelet Count 357 thou/uL (130-400); RBC Distribution Width 13.6 % (11.5-14.5); Red Blood Cell (RBC) Count 3.04 mill/uL (4.70-6.10); White Blood Cell (WBC) Count 26.1 thou/uL (4.8-10.8)
[2017-04-20 06:21] LABS: Anion Gap 10 mmol/L (10-20); BUN (Urea Nitrogen) 11 mg/dL (8.9-20.6); Calc. Creatinine Clearance 150 mL/min (70-130); Calcium 7.2 mg/dL (7.8-10.44); Carbon Dioxide 24 mmol/L (22-29); Chloride 106 mmol/L (98-107); Estimated GFR-MDRD Greater than 90; Glucose 127 mg/dL (70-105); Potassium 3.9 mmol/L (3.5-5.1); Sodium 136 mmol/L (136-145)
[2017-04-20 08:21] LABS: Vancomycin, Trough 15.6 ug/mL
[2017-04-20] MEDS: Indomethacin 25 mg Capsule PO SCH ×2 (08:52→20:22)
[2017-04-20] MEDS: Saccharomyces boulardii 250 MG CAP PO SCH (08:52)
[2017-04-20] MEDS: Cyanocobalamin (Vitamin B-12) 1,000 MCG TAB PO SCH (08:52)
[2017-04-20] MEDS: predniSONE 20 MG TAB PO SCH (08:52)
[2017-04-20] MEDS: Famotidine 20 MG TAB PO SCH ×2 (08:52→20:22)
[2017-04-20] MEDS: Folic Acid 1 MG TAB PO SCH (08:52)
[2017-04-20] MEDS: Enoxaparin Sodium 40 MG/0.4 ML SYRINGE SC SCH (08:53)
[2017-04-20] MEDS: Vancomycin HCl 1.75 GM in Sodium Chloride 0.9% 500 ML IVPB SCH ×2 (09:11→20:21)
--- NOTE | 2017-04-20 10:26 | PDOC.PN ---
- Subjective Encounter Start Date: 04/20/17 Encounter Start Time: 08:00 Subjective: pain is better, no sob -: is oriented well - Objective Resuscitation Status: Resuscitation Status FULL:Full Resuscitation MAR Reviewed: Yes Vital Signs & Weight: Vital Signs (12 hours) Temp Pulse Resp BP Pulse Ox 04/20/17 09:04 97.1 F L 73 16 121/70 99 04/20/17 04:47 97.6 F 70 19 135/72 99 04/20/17 00:00 97.2 F L 74 16 125/69 97 Weight Admit Weight 169 lb 15.616 oz Weight 169 lb 15.616 oz I&O: 04/19/17 04/20/17 04/21/17 06:59 06:59 06:59 Intake Total 2450 1900 Output Total 675 775 Balance 1775 1125 Result Diagrams: 04/20/17 05:02 04/20/17 05:02 Phys Exam - Physical Examination HEENT: PERRLA, moist MMs Neck: no JVD, supple Respiratory: no wheezing, no rales Cardiovascular: RRR, no significant murmur Gastrointestinal: soft, non-tender, positive bowel sounds Musculoskeletal: pulses present, edema present right leg edema, foot in wound vac Neurological: non-focal, moves all 4 limbs Psychiatric: A&O x 3 Dx/Plan (1) Sepsis Code(s): A41.9 - SEPSIS, UNSPECIFIED ORGANISM Status: Acute Qualifiers: Sepsis type: sepsis due to unspecified organism Qualified Code(s): A41.9 - Sepsis, unspecified organism (2) Foot abscess, right Code(s): L02.611 - CUTANEOUS ABSCESS OF RIGHT FOOT Status: Acute Comment: s/ p debridement 04/18/2017 (3) Cellulitis of right lower limb Code(s): L03.115 - CELLULITIS OF RIGHT LOWER LIMB Status: Acute (4) Gout Code(s): M10.9 - GOUT, UNSPECIFIED Status: Chronic Qualifiers: Gout site: unspecified site (5) Alcohol abuse Code(s): F10.10 - ALCOHOL ABUSE, UNCOMPLICATED Status: Chronic Comment: drinks 4-6 beers/day (6) Tobacco abuse Code(s): Z72.0 - TOBACCO USE Status: Chronic (7) Hypoalbuminemia due to protein-calorie malnutrition Code(s): E46 - UNSPECIFIED PROTEIN-CALORIE MALNUTRITION Status: Chronic Comment: and alc abuse (8) Postoperative anemia due to acute blood loss Code(s): D62 - ACUTE POSTHEMORRHAGIC ANEMIA Status: Acute - Plan on ceftriaxone and vanc -: wbc is slowly receding still around 26k -: on thiamine, folic acid, ativan prn for alc abuse -: ensure tid for low alb/alc abuse -: oral iron, B12, morphine prn * . Review of Systems - Medications/Allergies Allergies/Adverse Reactions: Allergies Allergy/AdvReac Type Severity Reaction Status Date / Time No Known Allergies Allergy Unverified 04/16/17 22:20 Medications: Current Medications Acetaminophen (Tylenol) 650 mg PO Q4H PRN PRN Reason: Headache/Fever or Pain Acetaminophen/Codeine Phosphate (Tylenol #3) 1 tab PO Q4H PRN PRN Reason: Pain Hydrocodone Bitart/Acetaminophen ([place] 10/325) 1 tab PO Q4H PRN PRN Reason: Moderate Pain (4-6) Last Admin: 04/20/17 04:38 Dose: 1 tab Al Hydroxide/Mg Hydroxide (Maalox) 30 ml PO Q6H PRN PRN Reason: Heartburn or Indigestion Cyanocobalamin (Vitamin B-12) 1,000 mcg PO DAILY [facility] Last Admin: 04/20/17 08:52 Dose: 1,000 mcg Enoxaparin Sodium (Lovenox) 40 mg SC 0900 [facility] Last Admin: 04/20/17 08:53 Dose: 40 mg Famotidine (Pepcid) 20 mg PO BID [facility] Last Admin: 04/20/17 08:52 Dose: 20 mg Folic Acid (Folvite) 1 mg PO DAILY [facility] Last Admin: 04/20/17 08:52 Dose: 1 mg Hydralazine HCl (Apresoline) 10 mg SLOW IVP Q4H PRN PRN Reason: Systolic BP > 180 Ceftriaxone Sodium 2 gm/ (Sodium Chloride) 100 mls @ 200 mls/hr IVPB 1700 [facility] Last Admin: 04/19/17 17:00 Dose: 100 mls Vancomycin HCl 1.75 gm/ Sodium (Chloride) 500 mls @ 250 mls/hr IVPB BID [facility] Last Admin: 04/20/17 09:11 Dose: 500 mls Indomethacin (Indocin) 100 mg PO BID [facility] Last Admin: 04/20/17 08:52 Dose: 100 mg Ketorolac Tromethamine (Toradol) 15 mg IVP Q6H PRN PRN Reason: Pain Stop: 04/22/17 01:53 Last Admin: 04/18/17 20:02 Dose: 15 mg Loperamide HCl (Imodium) 2 mg PO PRN PRN PRN Reason: Diarrhea/Loose Stools Magnesium Hydroxide (Milk Of Magnesium) 30 ml PO DAILYPRN PRN PRN Reason: Constipation Miscellaneous Medication (Pharmacy To Dose) 0 each IVPB PRN PRN PRN Reason: VANC Pharmacy to Dose Morphine Sulfate (Morphine) 4 mg SLOW IVP Q4H PRN PRN Reason: Severe Pain (7-10) Last Admin: 04/18/17 07:59 Dose: 4 mg Ondansetron HCl (Zofran Odt) 4 mg PO Q6H PRN PRN Reason: Nausea/Vomiting Ondansetron HCl (Zofran) 4 mg IVP Q6H PRN PRN Reason: Nausea/Vomiting Prednisone (Prednisone) 20 mg PO QAM-[facility] Last Admin: 04/20/17 08:52 Dose: 20 mg Saccharomyces Boulardii (Florastor) 250 mg PO DAILY [facility] Last Admin: 04/20/17 08:52 Dose: 250 mg Senna (Senokot) 2 tab PO HSPRN PRN PRN Reason: Constipation Sodium Chloride (Flush - Normal Saline) 10 ml IVF Q12HR [facility] Last Admin: 04/20/17 09:12 Dose: 10 ml Sodium Chloride (Flush - Normal Saline) 10 ml IVF PRN PRN PRN Reason: Saline Flush Thiamine HCl (Thiamine) 100 mg PO DAILY [facility] Last Admin: 04/20/17 08:52 Dose: 100 mg
[2017-04-20] MEDS: Morphine 5 MG/ML SYRINGE SLOW IVP PRN (14:09)
[2017-04-20] MEDS: Ferrous Sulfate 325 MG TAB PO SCH (16:28)
[2017-04-20] MEDS: cefTRIAXone\\ROCEPHIN 2 GM in Sodium Chloride 0.9% 100 ML IVPB SCH (16:28)
[2017-04-20] MEDS: Mag-Al 1200 mg/1200 mg/30 ML UDCUP PO PRN (20:20)
[2017-04-21] MEDS: HYDROcodone/Acetaminophen 10/325 mg Tablet PO PRN ×5 (00:24→20:27)
[2017-04-21] MEDS: Mag-Al 1200 mg/1200 mg/30 ML UDCUP PO PRN (06:10)
[2017-04-21 06:29] LABS: Anion Gap 9 mmol/L (10-20); BUN (Urea Nitrogen) 10 mg/dL (8.9-20.6); Calc. Creatinine Clearance 160 mL/min (70-130); Calcium 7.6 mg/dL (7.8-10.44); Carbon Dioxide 26 mmol/L (22-29); Chloride 105 mmol/L (98-107); Estimated GFR-MDRD Greater than 90; Glucose 97 mg/dL (70-105); Potassium 4.2 mmol/L (3.5-5.1); Sodium 136 mmol/L (136-145)
[2017-04-21 06:48] LABS: Hemoglobin 9.9 g/dL (14.0-18.0); Mean Corpuscular HGB CONC 31.3 g/dL (32.0-36.0); Mean Corpuscular Hemoglobin 30.4 pg (27.0-31.0); Mean Corpuscular Volume 97.1 fl (80.0-94.0); Platelet Count 444 thou/uL (130-400); RBC Distribution Width 13.8 % (11.5-14.5); Red Blood Cell (RBC) Count 3.27 mill/uL (4.70-6.10); White Blood Cell (WBC) Count 26.5 thou/uL (4.8-10.8)
[2017-04-21] MEDS: Cyanocobalamin (Vitamin B-12) 1,000 MCG TAB PO SCH (09:09)
[2017-04-21] MEDS: predniSONE 20 MG TAB PO SCH (09:09)
[2017-04-21] MEDS: Saccharomyces boulardii 250 MG CAP PO SCH (09:09)
[2017-04-21] MEDS: Folic Acid 1 MG TAB PO SCH (09:09)
[2017-04-21] MEDS: Famotidine 20 MG TAB PO SCH ×2 (09:09→20:27)
[2017-04-21] MEDS: Enoxaparin Sodium 40 MG/0.4 ML SYRINGE SC SCH (09:10)
[2017-04-21] MEDS: Ferrous Sulfate 325 MG TAB PO SCH ×2 (09:10→17:41)
[2017-04-21 09:16] LABS: Band 5 % (5-11); Lymphocytes 12 % (21-51); MDiff Complete? YES; Metamyelocyte 1 % (0-0); Monocytes 2 % (0-10); Myelocyte 2 % (0-0); Neutrophil 78 % (42-75); PLT Morphology Comment Appears Increased; Polychromasia SLIGHT = 2-3 cells (100X) (0-2/hpf)
[2017-04-21] MEDS: Vancomycin HCl 1.75 GM in Sodium Chloride 0.9% 500 ML IVPB SCH ×2 (09:22→20:29)
[2017-04-21] MEDS: Indomethacin 25 mg Capsule PO SCH ×2 (09:23→20:27)
--- NOTE | 2017-04-21 12:53 | PDOC.PN ---
- Subjective Encounter Start Date: 04/21/17 Encounter Start Time: 10:55 Subjective: feels better -: is amb in room - Objective Resuscitation Status: Resuscitation Status FULL:Full Resuscitation MAR Reviewed: Yes Vital Signs & Weight: Vital Signs (12 hours) Temp Pulse Resp BP Pulse Ox 04/21/17 11:53 98.8 F 82 14 145/72 H 98 04/21/17 08:00 97.2 F L 73 14 125/77 99 04/21/17 04:00 97.7 F 75 16 120/81 100 Weight Admit Weight 169 lb 15.616 oz Weight 169 lb 15.616 oz I&O: 04/20/17 04/21/17 04/22/17 06:59 06:59 06:59 Intake Total 1900 3300 Output Total 775 1500 Balance 1125 1800 Result Diagrams: 04/21/17 05:42 04/21/17 05:42 Phys Exam - Physical Examination HEENT: PERRLA, moist MMs Neck: no JVD, supple Respiratory: no wheezing, no rales Cardiovascular: RRR, no significant murmur Gastrointestinal: soft, non-tender, positive bowel sounds Musculoskeletal: pulses present, edema present right foot in wound vac Neurological: non-focal, moves all 4 limbs Psychiatric: A&O x 3 Dx/Plan (1) Sepsis Code(s): A41.9 - SEPSIS, UNSPECIFIED ORGANISM Status: Acute Qualifiers: Sepsis type: sepsis due to unspecified organism Qualified Code(s): A41.9 - Sepsis, unspecified organism (2) Foot abscess, right Code(s): L02.611 - CUTANEOUS ABSCESS OF RIGHT FOOT Status: Acute Comment: s/ p debridement 04/18/2017 (3) Cellulitis of right lower limb Code(s): L03.115 - CELLULITIS OF RIGHT LOWER LIMB Status: Acute (4) Gout Code(s): M10.9 - GOUT, UNSPECIFIED Status: Chronic Qualifiers: Gout site: unspecified site (5) Alcohol abuse Code(s): F10.10 - ALCOHOL ABUSE, UNCOMPLICATED Status: Chronic Comment: drinks 4-6 beers/day (6) Tobacco abuse Code(s): Z72.0 - TOBACCO USE Status: Chronic (7) Hypoalbuminemia due to protein-calorie malnutrition Code(s): E46 - UNSPECIFIED PROTEIN-CALORIE MALNUTRITION Status: Chronic Comment: and alc abuse (8) Postoperative anemia due to acute blood loss Code(s): D62 - ACUTE POSTHEMORRHAGIC ANEMIA Status: Acute - Plan on ceftriaxone and vanc -: no withdrawal symptoms/signs so far -: wbc still around 20k -: oral thiamine, folic acid and iron * . Review of Systems - Medications/Allergies Allergies/Adverse Reactions: Allergies Allergy/AdvReac Type Severity Reaction Status Date / Time No Known Allergies Allergy Unverified 04/16/17 22:20 Medications: Current Medications Acetaminophen (Tylenol) 650 mg PO Q4H PRN PRN Reason: Headache/Fever or Pain Acetaminophen/Codeine Phosphate (Tylenol #3) 1 tab PO Q4H PRN PRN Reason: Pain Hydrocodone Bitart/Acetaminophen ([place] 10/325) 1 tab PO Q4H PRN PRN Reason: Moderate Pain (4-6) Last Admin: 04/21/17 10:13 Dose: 1 tab Al Hydroxide/Mg Hydroxide (Maalox) 30 ml PO Q6H PRN PRN Reason: Heartburn or Indigestion Last Admin: 04/21/17 06:10 Dose: 30 ml Cyanocobalamin (Vitamin B-12) 1,000 mcg PO DAILY [facility] Last Admin: 04/21/17 09:09 Dose: 1,000 mcg Enoxaparin Sodium (Lovenox) 40 mg SC 0900 [facility] Last Admin: 04/21/17 09:10 Dose: 40 mg Famotidine (Pepcid) 20 mg PO BID [facility] Last Admin: 04/21/17 09:09 Dose: 20 mg Ferrous Sulfate (Feosol) 325 mg PO BID-[facility] Last Admin: 04/21/17 09:10 Dose: 325 mg Folic Acid (Folvite) 1 mg PO DAILY [facility] Last Admin: 04/21/17 09:09 Dose: 1 mg Hydralazine HCl (Apresoline) 10 mg SLOW IVP Q4H PRN PRN Reason: Systolic BP > 180 Ceftriaxone Sodium 2 gm/ (Sodium Chloride) 100 mls @ 200 mls/hr IVPB 1700 [facility] Last Admin: 04/20/17 16:28 Dose: 100 mls Vancomycin HCl 1.75 gm/ Sodium (Chloride) 500 mls @ 250 mls/hr IVPB BID [facility] Last Admin: 04/21/17 09:22 Dose: 500 mls Indomethacin (Indocin) 100 mg PO BID [facility] Last Admin: 04/21/17 09:23 Dose: 100 mg Ketorolac Tromethamine (Toradol) 15 mg IVP Q6H PRN PRN Reason: Pain Stop: 04/22/17 01:53 Last Admin: 04/18/17 20:02 Dose: 15 mg Loperamide HCl (Imodium) 2 mg PO PRN PRN PRN Reason: Diarrhea/Loose Stools Magnesium Hydroxide (Milk Of Magnesium) 30 ml PO DAILYPRN PRN PRN Reason: Constipation Miscellaneous Medication (Pharmacy To Dose) 0 each IVPB PRN PRN PRN Reason: VANC Pharmacy to Dose Morphine Sulfate (Morphine) 4 mg SLOW IVP Q4H PRN PRN Reason: Severe Pain (7-10) Last Admin: 04/20/17 14:09 Dose: 4 mg Ondansetron HCl (Zofran Odt) 4 mg PO Q6H PRN PRN Reason: Nausea/Vomiting Ondansetron HCl (Zofran) 4 mg IVP Q6H PRN PRN Reason: Nausea/Vomiting Prednisone (Prednisone) 20 mg PO QA-[facility] Last Admin: 04/21/17 09:09 Dose: 20 mg Saccharomyces Boulardii (Florastor) 250 mg PO DAILY [facility] Last Admin: 04/21/17 09:09 Dose: 250 mg Senna (Senokot) 2 tab PO HSPRN PRN PRN Reason: Constipation Sodium Chloride (Flush - Normal Saline) 10 ml IVF Q12HR [facility] Last Admin: 04/21/17 09:28 Dose: 10 ml Sodium Chloride (Flush - Normal Saline) 10 ml IVF PRN PRN PRN Reason: Saline Flush Thiamine HCl (Thiamine) 100 mg PO DAILY [facility] Last Admin: 04/21/17 09:09 Dose: 100 mg
[2017-04-21] MEDS: cefTRIAXone\\ROCEPHIN 2 GM in Sodium Chloride 0.9% 100 ML IVPB SCH (17:41)
[2017-04-21] MEDS: Ondansetron HCl/PF 4 MG/2 ML Vial IVP PRN (20:28)
[2017-04-21] MEDS: Ketorolac Tromethamine 30 MG/ML VIAL IVP PRN (20:28)
[2017-04-22] MEDS: HYDROcodone/Acetaminophen 10/325 mg Tablet PO PRN ×4 (00:43→19:52)
[2017-04-22 06:01] LABS: #Basophils 0.1 thou/uL (0.0-0.2); #Eosinphils 0.4 thou/uL (0.0-0.7); #Lymphocytes 3.3 thou/uL (1.20-3.40); #Neutrophils 22.8 thou/uL (1.40-6.50); %Basophils 0.5 % (0.0-1.0); %Eosinophils 1.6 % (0.0-10.0); %Lymphocytes 11.6 % (21.0-51.0); %Monocytes 6.8 % (0.0-10.0); %Neutrophils 79.6 % (42.0-75.0); Hemoglobin 10.8 g/dL (14.0-18.0); Mean Corpuscular HGB CONC 31.5 g/dL (32.0-36.0); Mean Corpuscular Hemoglobin 31.1 pg (27.0-31.0); Mean Corpuscular Volume 98.9 fl (80.0-94.0); Mean Platelet Volume 7.1 fL (7.4-10.4); Platelet Count 433 thou/uL (130-400); RBC Distribution Width 14.2 % (11.5-14.5); Red Blood Cell (RBC) Count 3.48 mill/uL (4.70-6.10); White Blood Cell (WBC) Count 28.6 thou/uL (4.8-10.8)
[2017-04-22 06:31] LABS: Anion Gap 10 mmol/L (10-20); BUN (Urea Nitrogen) 10 mg/dL (8.9-20.6); Calc. Creatinine Clearance 155 mL/min (70-130); Calcium 7.6 mg/dL (7.8-10.44); Carbon Dioxide 23 mmol/L (22-29); Chloride 105 mmol/L (98-107); Estimated GFR-MDRD Greater than 90; Glucose 118 mg/dL (70-105); Potassium 4.1 mmol/L (3.5-5.1); Sodium 134 mmol/L (136-145)
[2017-04-22] MEDS: predniSONE 20 MG TAB PO SCH (08:19)
[2017-04-22] MEDS: Ferrous Sulfate 325 MG TAB PO SCH ×2 (08:19→16:48)
[2017-04-22 08:30] LABS: Vancomycin, Trough 18.4 ug/mL
[2017-04-22] MEDS: Morphine 5 MG/ML SYRINGE SLOW IVP PRN (09:31)
[2017-04-22] MEDS: Enoxaparin Sodium 40 MG/0.4 ML SYRINGE SC SCH (09:36)
[2017-04-22] MEDS: Saccharomyces boulardii 250 MG CAP PO SCH (09:37)
[2017-04-22] MEDS: Folic Acid 1 MG TAB PO SCH (09:37)
[2017-04-22] MEDS: Cyanocobalamin (Vitamin B-12) 1,000 MCG TAB PO SCH (09:37)
[2017-04-22] MEDS: Famotidine 20 MG TAB PO SCH ×2 (09:37→20:59)
[2017-04-22] MEDS: Indomethacin 25 mg Capsule PO SCH ×2 (09:38→20:59)
[2017-04-22] MEDS: Vancomycin HCl 1.75 GM in Sodium Chloride 0.9% 500 ML IVPB SCH ×2 (09:38→21:00)
[2017-04-22] MEDS: Ondansetron HCl/PF 4 MG/2 ML Vial IVP PRN ×2 (12:11→20:59)
--- NOTE | 2017-04-22 12:30 | PDOC.PN ---
- Subjective Encounter Start Date: 04/22/17 Encounter Start Time: 10:15 Subjective: has increasing edema over right leg this am -: dressing is all wet this am - Objective Resuscitation Status: Resuscitation Status FULL:Full Resuscitation MAR Reviewed: Yes Vital Signs & Weight: Vital Signs (12 hours) Temp Pulse Resp BP Pulse Ox 04/22/17 11:55 97.2 F L 77 16 122/69 100 04/22/17 08:00 98.4 F 72 12 111/60 98 04/22/17 04:00 98.4 F 67 20 135/74 96 Weight Admit Weight 169 lb 15.616 oz Weight 169 lb 15.616 oz I&O: 04/21/17 04/22/17 04/23/17 06:59 06:59 06:59 Intake Total 3300 3270 Output Total 1500 3200 Balance 1800 70 Result Diagrams: 04/22/17 05:31 04/22/17 05:31 Phys Exam - Physical Examination HEENT: PERRLA, moist MMs Neck: no JVD, supple Respiratory: no wheezing, no rales Cardiovascular: RRR, no significant murmur Gastrointestinal: soft, non-tender, positive bowel sounds Musculoskeletal: pulses present, edema present right foot in wound vac, dressing is wet, leg is edematous Neurological: non-focal, moves all 4 limbs Psychiatric: A&O x 3 Dx/Plan (1) Sepsis Code(s): A41.9 - SEPSIS, UNSPECIFIED ORGANISM Status: Acute Qualifiers: Sepsis type: sepsis due to unspecified organism Qualified Code(s): A41.9 - Sepsis, unspecified organism (2) Foot abscess, right Code(s): L02.611 - CUTANEOUS ABSCESS OF RIGHT FOOT Status: Acute Comment: s/ p debridement 04/18/2017 (3) Cellulitis of right lower limb Code(s): L03.115 - CELLULITIS OF RIGHT LOWER LIMB Status: Acute (4) Gout Code(s): M10.9 - GOUT, UNSPECIFIED Status: Chronic Qualifiers: Gout site: unspecified site (5) Alcohol abuse Code(s): F10.10 - ALCOHOL ABUSE, UNCOMPLICATED Status: Chronic Comment: drinks 4-6 beers/day (6) Tobacco abuse Code(s): Z72.0 - TOBACCO USE Status: Chronic (7) Hypoalbuminemia due to protein-calorie malnutrition Code(s): E46 - UNSPECIFIED PROTEIN-CALORIE MALNUTRITION Status: Chronic Comment: and alc abuse (8) Postoperative anemia due to acute blood loss Code(s): D62 - ACUTE POSTHEMORRHAGIC ANEMIA Status: Acute - Plan on ceftr and vanc -: wbc around 28k this am -: will need to keep his right leg over pillows/elevated -: has low alb, increase oral protein intake -: no signs of alc withdrawal so far * . Review of Systems - Medications/Allergies Allergies/Adverse Reactions: Allergies Allergy/AdvReac Type Severity Reaction Status Date / Time No Known Allergies Allergy Unverified 04/16/17 22:20 Medications: Current Medications Acetaminophen (Tylenol) 650 mg PO Q4H PRN PRN Reason: Headache/Fever or Pain Acetaminophen/Codeine Phosphate (Tylenol #3) 1 tab PO Q4H PRN PRN Reason: Pain Hydrocodone Bitart/Acetaminophen ([place] 10/325) 1 tab PO Q4H PRN PRN Reason: Moderate Pain (4-6) Last Admin: 04/22/17 12:10 Dose: 1 tab Al Hydroxide/Mg Hydroxide (Maalox) 30 ml PO Q6H PRN PRN Reason: Heartburn or Indigestion Last Admin: 04/21/17 06:10 Dose: 30 ml Cyanocobalamin (Vitamin B-12) 1,000 mcg PO DAILY [facility] Last Admin: 04/22/17 09:37 Dose: 1,000 mcg Enoxaparin Sodium (Lovenox) 40 mg SC 0900 [facility] Last Admin: 04/22/17 09:36 Dose: 40 mg Famotidine (Pepcid) 20 mg PO BID [facility] Last Admin: 04/22/17 09:37 Dose: 20 mg Ferrous Sulfate (Feosol) 325 mg PO BID-[facility] Last Admin: 04/22/17 08:19 Dose: 325 mg Folic Acid (Folvite) 1 mg PO DAILY [facility] Last Admin: 04/22/17 09:37 Dose: 1 mg Hydralazine HCl (Apresoline) 10 mg SLOW IVP Q4H PRN PRN Reason: Systolic BP > 180 Ceftriaxone Sodium 2 gm/ (Sodium Chloride) 100 mls @ 200 mls/hr IVPB 1700 [facility] Last Admin: 04/21/17 17:41 Dose: 100 mls Vancomycin HCl 1.75 gm/ Sodium (Chloride) 500 mls @ 250 mls/hr IVPB BID [facility] Last Admin: 04/22/17 09:38 Dose: 500 mls Indomethacin (Indocin) 100 mg PO BID [facility] Last Admin: 04/22/17 09:38 Dose: 100 mg Loperamide HCl (Imodium) 2 mg PO PRN PRN PRN Reason: Diarrhea/Loose Stools Magnesium Hydroxide (Milk Of Magnesium) 30 ml PO DAILYPRN PRN PRN Reason: Constipation Miscellaneous Medication (Pharmacy To Dose) 0 each IVPB PRN PRN PRN Reason: VANC Pharmacy to Dose Morphine Sulfate (Morphine) 4 mg SLOW IVP Q4H PRN PRN Reason: Severe Pain (7-10) Last Admin: 04/22/17 09:31 Dose: 4 mg Ondansetron HCl (Zofran Odt) 4 mg PO Q6H PRN PRN Reason: Nausea/Vomiting Ondansetron HCl (Zofran) 4 mg IVP Q6H PRN PRN Reason: Nausea/Vomiting Last Admin: 04/22/17 12:11 Dose: 4 mg Prednisone (Prednisone) 20 mg PO QA-[facility] Last Admin: 04/22/17 08:19 Dose: 20 mg Saccharomyces Boulardii (Florastor) 250 mg PO DAILY [facility] Last Admin: 04/22/17 09:37 Dose: 250 mg Senna (Senokot) 2 tab PO HSPRN PRN PRN Reason: Constipation Sodium Chloride (Flush - Normal Saline) 10 ml IVF Q12HR [facility] Last Admin: 04/22/17 10:23 Dose: 10 ml Sodium Chloride (Flush - Normal Saline) 10 ml IVF PRN PRN PRN Reason: Saline Flush Thiamine HCl (Thiamine) 100 mg PO DAILY [facility] Last Admin: 04/22/17 09:37 Dose: 100 mg
[2017-04-22] MEDS: cefTRIAXone\\ROCEPHIN 2 GM in Sodium Chloride 0.9% 100 ML IVPB SCH (16:48)
[2017-04-23] MEDS: HYDROcodone/Acetaminophen 10/325 mg Tablet PO PRN ×3 (02:46→22:01)
[2017-04-23 06:20] LABS: Anion Gap 6 mmol/L (10-20); BUN (Urea Nitrogen) 15 mg/dL (8.9-20.6); Calc. Creatinine Clearance 139 mL/min (70-130); Calcium 7.4 mg/dL (7.8-10.44); Carbon Dioxide 27 mmol/L (22-29); Chloride 105 mmol/L (98-107); Estimated GFR-MDRD Greater than 90; Glucose 103 mg/dL (70-105); Sodium 134 mmol/L (136-145)
[2017-04-23] MEDS: Vancomycin HCl 1.75 GM in Sodium Chloride 0.9% 500 ML IVPB SCH ×2 (08:12→21:52)
[2017-04-23] MEDS: predniSONE 20 MG TAB PO SCH (08:13)
[2017-04-23] MEDS: Indomethacin 25 mg Capsule PO SCH ×2 (08:13→21:53)
[2017-04-23] MEDS: Famotidine 20 MG TAB PO SCH ×2 (08:14→21:53)
[2017-04-23] MEDS: Cyanocobalamin (Vitamin B-12) 1,000 MCG TAB PO SCH (08:14)
[2017-04-23] MEDS: Saccharomyces boulardii 250 MG CAP PO SCH (08:15)
[2017-04-23] MEDS: Enoxaparin Sodium 40 MG/0.4 ML SYRINGE SC SCH (08:15)
[2017-04-23 09:40] LABS: Band 6 % (5-11); Hemoglobin 8.8 g/dL (14.0-18.0); Lymphocytes 7 % (21-51); MDiff Complete? YES; Mean Corpuscular HGB CONC 31.2 g/dL (32.0-36.0); Mean Corpuscular Hemoglobin 30.5 pg (27.0-31.0); Mean Corpuscular Volume 97.5 fl (80.0-94.0); Monocytes 5 % (0-10); Neutrophil 82 % (42-75); Platelet Count 408 thou/uL (130-400); Red Blood Cell (RBC) Count 2.88 mill/uL (4.70-6.10); White Blood Cell (WBC) Count 29.2 thou/uL (4.8-10.8)
--- NOTE | 2017-04-23 11:10 | PDOC.PN ---
- Subjective Encounter Start Date: 04/23/17 Encounter Start Time: 11:05 Subjective: no sob -: c/o right leg edema getting worse - Objective Resuscitation Status: Resuscitation Status FULL:Full Resuscitation MAR Reviewed: Yes Vital Signs & Weight: Vital Signs (12 hours) Temp Pulse Resp BP Pulse Ox 04/23/17 08:20 98.3 F 73 16 116/68 100 04/23/17 08:00 98.3 F 73 16 04/23/17 05:09 97.1 F L 80 17 112/65 96 04/23/17 00:09 98.2 F 73 16 144/75 H 99 Weight Admit Weight 169 lb 15.616 oz Weight 169 lb 15.616 oz I&O: 04/22/17 04/23/17 04/24/17 06:59 06:59 06:59 Intake Total 3270 4590 Output Total 3200 800 Balance 70 3790 Result Diagrams: 04/23/17 04:57 04/23/17 04:57 Phys Exam - Physical Examination HEENT: PERRLA, moist MMs Neck: no JVD, supple Respiratory: no wheezing, no rales Cardiovascular: RRR, no significant murmur Gastrointestinal: soft, non-tender, positive bowel sounds Musculoskeletal: pulses present, edema present has increasing edema of right leg Neurological: non-focal, moves all 4 limbs Psychiatric: A&O x 3 Dx/Plan (1) Sepsis Code(s): A41.9 - SEPSIS, UNSPECIFIED ORGANISM Status: Acute Qualifiers: Sepsis type: sepsis due to unspecified organism Qualified Code(s): A41.9 - Sepsis, unspecified organism (2) Foot abscess, right Code(s): L02.611 - CUTANEOUS ABSCESS OF RIGHT FOOT Status: Acute Comment: s/ p debridement 04/18/2017 (3) Cellulitis of right lower limb Code(s): L03.115 - CELLULITIS OF RIGHT LOWER LIMB Status: Acute (4) Gout Code(s): M10.9 - GOUT, UNSPECIFIED Status: Chronic Qualifiers: Gout site: unspecified site (5) Alcohol abuse Code(s): F10.10 - ALCOHOL ABUSE, UNCOMPLICATED Status: Chronic Comment: drinks 4-6 beers/day (6) Tobacco abuse Code(s): Z72.0 - TOBACCO USE Status: Chronic (7) Hypoalbuminemia due to protein-calorie malnutrition Code(s): E46 - UNSPECIFIED PROTEIN-CALORIE MALNUTRITION Status: Chronic Comment: and alc abuse (8) Postoperative anemia due to acute blood loss Code(s): D62 - ACUTE POSTHEMORRHAGIC ANEMIA Status: Acute - Plan has worsoning edema of right leg, mgmt per ortho advice -: suggest dc prednisone, has low alb as well both might contribute to edema/p -: -oor healing -: on ceftriaxone and vanc -: thiamine, folic acid * . Review of Systems - Medications/Allergies Allergies/Adverse Reactions: Allergies Allergy/AdvReac Type Severity Reaction Status Date / Time No Known Allergies Allergy Unverified 04/16/17 22:20 Medications: Current Medications Acetaminophen (Tylenol) 650 mg PO Q4H PRN PRN Reason: Headache/Fever or Pain Acetaminophen/Codeine Phosphate (Tylenol #3) 1 tab PO Q4H PRN PRN Reason: Pain Hydrocodone Bitart/Acetaminophen ([place] 10/325) 1 tab PO Q4H PRN PRN Reason: Moderate Pain (4-6) Last Admin: 04/23/17 02:46 Dose: 1 tab Al Hydroxide/Mg Hydroxide (Maalox) 30 ml PO Q6H PRN PRN Reason: Heartburn or Indigestion Last Admin: 04/21/17 06:10 Dose: 30 ml Cyanocobalamin (Vitamin B-12) 1,000 mcg PO DAILY [facility] Last Admin: 04/23/17 08:14 Dose: 1,000 mcg Enoxaparin Sodium (Lovenox) 40 mg SC 0900 [facility] Last Admin: 04/23/17 08:15 Dose: 40 mg Famotidine (Pepcid) 20 mg PO BID [facility] Last Admin: 04/23/17 08:14 Dose: 20 mg Ferrous Sulfate (Feosol) 325 mg PO BID-[facility] Last Admin: 04/22/17 16:48 Dose: 325 mg Folic Acid (Folvite) 1 mg PO DAILY [facility] Last Admin: 04/22/17 09:37 Dose: 1 mg Hydralazine HCl (Apresoline) 10 mg SLOW IVP Q4H PRN PRN Reason: Systolic BP > 180 Ceftriaxone Sodium 2 gm/ (Sodium Chloride) 100 mls @ 200 mls/hr IVPB 1700 [facility] Last Admin: 04/22/17 16:48 Dose: 100 mls Vancomycin HCl 1.75 gm/ Sodium (Chloride) 500 mls @ 250 mls/hr IVPB BID [facility] Last Admin: 04/23/17 08:12 Dose: 500 mls Indomethacin (Indocin) 100 mg PO BID [facility] Last Admin: 04/23/17 08:13 Dose: 100 mg Loperamide HCl (Imodium) 2 mg PO PRN PRN PRN Reason: Diarrhea/Loose Stools Last Admin: 04/22/17 20:59 Dose: 2 mg Magnesium Hydroxide (Milk Of Magnesium) 30 ml PO DAILYPRN PRN PRN Reason: Constipation Miscellaneous Medication (Pharmacy To Dose) 0 each IVPB PRN PRN PRN Reason: VANC Pharmacy to Dose Morphine Sulfate (Morphine) 4 mg SLOW IVP Q4H PRN PRN Reason: Severe Pain (7-10) Last Admin: 04/22/17 09:31 Dose: 4 mg Ondansetron HCl (Zofran Odt) 4 mg PO Q6H PRN PRN Reason: Nausea/Vomiting Ondansetron HCl (Zofran) 4 mg IVP Q6H PRN PRN Reason: Nausea/Vomiting Last Admin: 04/22/17 20:59 Dose: 4 mg Prednisone (Prednisone) 20 mg PO QA-[facility] Last Admin: 04/23/17 08:13 Dose: 20 mg Saccharomyces Boulardii (Florastor) 250 mg PO DAILY [facility] Last Admin: 04/23/17 08:15 Dose: 250 mg Senna (Senokot) 2 tab PO HSPRN PRN PRN Reason: Constipation Sodium Chloride (Flush - Normal Saline) 10 ml IVF Q12HR [facility] Last Admin: 04/23/17 08:23 Dose: Not Given Sodium Chloride (Flush - Normal Saline) 10 ml IVF PRN PRN PRN Reason: Saline Flush Thiamine HCl (Thiamine) 100 mg PO DAILY [facility] Last Admin: 04/23/17 08:14 Dose: 100 mg
[2017-04-23] MEDS: metroNIDAZOLE 500 MG in Premix Bag 1 BAG IVPB SCH ×2 (14:11→21:53)
[2017-04-23] MEDS: Ferrous Sulfate 325 MG TAB PO SCH ×2 (14:12→17:12)
[2017-04-23] MEDS: Folic Acid 1 MG TAB PO SCH (14:12)
[2017-04-23] MEDS: cefTRIAXone\\ROCEPHIN 2 GM in Sodium Chloride 0.9% 100 ML IVPB SCH (17:12)
[2017-04-23] MEDS: Ondansetron ODT 4 MG TAB PO PRN (22:01)
[2017-04-24] MEDS: metroNIDAZOLE 500 MG in Premix Bag 1 BAG IVPB SCH ×3 (03:51→21:10)
[2017-04-24] MEDS: HYDROcodone/Acetaminophen 10/325 mg Tablet PO PRN ×4 (03:55→17:50)
[2017-04-24 05:25] LABS: Anion Gap 8 mmol/L (10-20); BUN (Urea Nitrogen) 19 mg/dL (8.9-20.6); Calc. Creatinine Clearance 123 mL/min (70-130); Calcium 7.7 mg/dL (7.8-10.44); Carbon Dioxide 28 mmol/L (22-29); Chloride 104 mmol/L (98-107); Estimated GFR-MDRD Greater than 90; Glucose 91 mg/dL (70-105); Potassium 4.3 mmol/L (3.5-5.1); Sodium 136 mmol/L (136-145)
[2017-04-24 05:52] LABS: Band 1 % (5-11); Eosinophils 3 % (0-10); Hemoglobin 9.3 g/dL (14.0-18.0); Lymphocytes 13 % (21-51); MDiff Complete? YES; Mean Corpuscular Hemoglobin 31.4 pg (27.0-31.0); Mean Corpuscular Volume 98.1 fl (80.0-94.0); Mean Platelet Volume 7.4 fL (7.4-10.4); Metamyelocyte 1 % (0-0); Monocytes 5 % (0-10); Myelocyte 1 % (0-0); Neutrophil 76 % (42-75); Platelet Count 456 thou/uL (130-400); RBC Distribution Width 14.6 % (11.5-14.5); Red Blood Cell (RBC) Count 2.96 mill/uL (4.70-6.10); White Blood Cell (WBC) Count 26.2 thou/uL (4.8-10.8)
[2017-04-24] MEDS: Enoxaparin Sodium 40 MG/0.4 ML SYRINGE SC SCH (07:59)
[2017-04-24] MEDS: Saccharomyces boulardii 250 MG CAP PO SCH (08:00)
[2017-04-24] MEDS: Famotidine 20 MG TAB PO SCH ×2 (08:00→21:11)
[2017-04-24] MEDS: predniSONE 20 MG TAB PO SCH (08:00)
[2017-04-24] MEDS: Folic Acid 1 MG TAB PO SCH (08:00)
[2017-04-24] MEDS: Ferrous Sulfate 325 MG TAB PO SCH ×2 (08:00→17:45)
[2017-04-24] MEDS: Cyanocobalamin (Vitamin B-12) 1,000 MCG TAB PO SCH (08:00)
[2017-04-24] MEDS: Indomethacin 25 mg Capsule PO SCH ×2 (08:00→21:11)
[2017-04-24 08:41] LABS: Vancomycin, Trough 26.7 ug/mL
--- NOTE | 2017-04-24 11:23 | PDOC.PN ---
- Subjective Encounter Start Date: 04/24/17 Encounter Start Time: 08:30 Subjective: right leg pain is better, no sob -: is amb in room -: eating well - Objective Resuscitation Status: Resuscitation Status FULL:Full Resuscitation MAR Reviewed: Yes Vital Signs & Weight: Vital Signs (12 hours) Temp Pulse Resp BP Pulse Ox 04/24/17 08:15 98.3 F 75 18 122/69 100 04/24/17 08:00 98.3 F 75 18 100 04/24/17 04:00 98.8 F 100 16 114/69 95 04/24/17 00:00 97.9 F 68 16 111/68 98 Weight Admit Weight 169 lb 15.616 oz Weight 169 lb 15.616 oz I&O: 04/23/17 04/24/17 04/25/17 06:59 06:59 06:59 Intake Total 4590 2200 Output Total 800 1850 Balance 3790 350 Result Diagrams: 04/24/17 04:14 04/24/17 04:14 Phys Exam - Physical Examination HEENT: PERRLA, moist MMs Neck: no JVD, supple Respiratory: no wheezing, no rales Cardiovascular: RRR, no significant murmur Gastrointestinal: soft, non-tender, positive bowel sounds Musculoskeletal: pulses present, edema present Neurological: non-focal, moves all 4 limbs Psychiatric: A&O x 3 Dx/Plan (1) Sepsis Code(s): A41.9 - SEPSIS, UNSPECIFIED ORGANISM Status: Acute Qualifiers: Sepsis type: sepsis due to unspecified organism Qualified Code(s): A41.9 - Sepsis, unspecified organism (2) Foot abscess, right Code(s): L02.611 - CUTANEOUS ABSCESS OF RIGHT FOOT Status: Acute Comment: s/ p debridement 04/18/2017 (3) Cellulitis of right lower limb Code(s): L03.115 - CELLULITIS OF RIGHT LOWER LIMB Status: Acute (4) Gout Code(s): M10.9 - GOUT, UNSPECIFIED Status: Chronic Qualifiers: Gout site: unspecified site (5) Alcohol abuse Code(s): F10.10 - ALCOHOL ABUSE, UNCOMPLICATED Status: Chronic Comment: drinks 4-6 beers/day (6) Tobacco abuse Code(s): Z72.0 - TOBACCO USE Status: Chronic (7) Hypoalbuminemia due to protein-calorie malnutrition Code(s): E46 - UNSPECIFIED PROTEIN-CALORIE MALNUTRITION Status: Chronic Comment: and alc abuse (8) Postoperative anemia due to acute blood loss Code(s): D62 - ACUTE POSTHEMORRHAGIC ANEMIA Status: Acute - Plan dc prednisone, ?elevated wbc, watch for hypotension due to steroid WD -: on flagyl, ceftr and vanc, oral iron -: wound vac over right leg/foot -: add mvi, vit C and zinc in addition to evelyne, ensure to help wound healing -: to keep his right foot elevated * . Review of Systems - Medications/Allergies Allergies/Adverse Reactions: Allergies Allergy/AdvReac Type Severity Reaction Status Date / Time No Known Allergies Allergy Unverified 04/16/17 22:20 Medications: Current Medications Acetaminophen (Tylenol) 650 mg PO Q4H PRN PRN Reason: Headache/Fever or Pain Acetaminophen/Codeine Phosphate (Tylenol #3) 1 tab PO Q4H PRN PRN Reason: Pain Hydrocodone Bitart/Acetaminophen ([place] 10/325) 1 tab PO Q4H PRN PRN Reason: Moderate Pain (4-6) Last Admin: 04/24/17 08:00 Dose: 1 tab Al Hydroxide/Mg Hydroxide (Maalox) 30 ml PO Q6H PRN PRN Reason: Heartburn or Indigestion Last Admin: 04/21/17 06:10 Dose: 30 ml Ascorbic Acid (Vitamin C) 500 mg PO DAILY [facility] Cyanocobalamin (Vitamin B-12) 1,000 mcg PO DAILY [facility] Last Admin: 04/24/17 08:00 Dose: 1,000 mcg Enoxaparin Sodium (Lovenox) 40 mg SC 0900 [facility] Last Admin: 04/24/17 07:59 Dose: 40 mg Famotidine (Pepcid) 20 mg PO BID [facility] Last Admin: 04/24/17 08:00 Dose: 20 mg Ferrous Sulfate (Feosol) 325 mg PO BID-[facility] Last Admin: 04/24/17 08:00 Dose: 325 mg Folic Acid (Folvite) 1 mg PO DAILY [facility] Last Admin: 04/24/17 08:00 Dose: 1 mg Hydralazine HCl (Apresoline) 10 mg SLOW IVP Q4H PRN PRN Reason: Systolic BP > 180 Ceftriaxone Sodium 2 gm/ (Sodium Chloride) 100 mls @ 200 mls/hr IVPB 1700 [facility] Last Admin: 04/23/17 17:12 Dose: 100 mls Metronidazole 500 mg/ Device 100 mls @ 100 mls/hr IVPB 0400,1200,2000 [facility] Last Admin: 04/24/17 03:51 Dose: 100 mls Vancomycin HCl 1.25 gm/ Sodium (Chloride) 250 mls @ 166.667 mls/hr IVPB Q12HR [facility] Indomethacin (Indocin) 100 mg PO BID [facility] Last Admin: 04/24/17 08:00 Dose: 100 mg Iron/Minerals/Multivitamins (Theragran M) 1 tab PO DAILY [facility] Loperamide HCl (Imodium) 2 mg PO PRN PRN PRN Reason: Diarrhea/Loose Stools Last Admin: 04/22/17 20:59 Dose: 2 mg Magnesium Hydroxide (Milk Of Magnesium) 30 ml PO DAILYPRN PRN PRN Reason: Constipation Miscellaneous Medication (Pharmacy To Dose) 0 each IVPB PRN PRN PRN Reason: VANC Pharmacy to Dose Morphine Sulfate (Morphine) 4 mg SLOW IVP Q4H PRN PRN Reason: Severe Pain (7-10) Last Admin: 04/22/17 09:31 Dose: 4 mg Ondansetron HCl (Zofran Odt) 4 mg PO Q6H PRN PRN Reason: Nausea/Vomiting Last Admin: 04/23/17 22:01 Dose: 4 mg Ondansetron HCl (Zofran) 4 mg IVP Q6H PRN PRN Reason: Nausea/Vomiting Last Admin: 04/22/17 20:59 Dose: 4 mg Saccharomyces Boulardii (Florastor) 250 mg PO DAILY [facility] Last Admin: 04/24/17 08:00 Dose: 250 mg Senna (Senokot) 2 tab PO HSPRN PRN PRN Reason: Constipation Sodium Chloride (Flush - Normal Saline) 10 ml IVF Q12HR [facility] Last Admin: 04/24/17 08:01 Dose: 10 ml Sodium Chloride (Flush - Normal Saline) 10 ml IVF PRN PRN PRN Reason: Saline Flush Thiamine HCl (Thiamine) 100 mg PO DAILY [facility] Last Admin: 04/24/17 08:00 Dose: 100 mg Zinc Sulfate (Zinc Sulfate) 220 mg PO DAILY [facility]
[2017-04-24] MEDS: cefTRIAXone\\ROCEPHIN 2 GM in Sodium Chloride 0.9% 100 ML IVPB SCH (17:45)
[2017-04-24] MEDS: Ondansetron ODT 4 MG TAB PO PRN (17:50)
[2017-04-24] MEDS: Vancomycin HCl 1.25 GM in Sodium Chloride 0.9% 250 ML 250 ML IVPB SCH (21:10)
[2017-04-25] MEDS: HYDROcodone/Acetaminophen 10/325 mg Tablet PO PRN ×5 (00:47→20:20)
[2017-04-25 05:43] LABS: #Basophils 0.1 thou/uL (0.0-0.2); #Eosinphils 0.1 thou/uL (0.0-0.7); #Lymphocytes 3.6 thou/uL (1.20-3.40); #Monocytes 2.2 thou/uL (0.11-0.59); #Neutrophils 22.1 thou/uL (1.40-6.50); %Basophils 0.4 % (0.0-1.0); %Eosinophils 0.5 % (0.0-10.0); %Lymphocytes 12.7 % (21.0-51.0); %Monocytes 7.8 % (0.0-10.0); %Neutrophils 78.5 % (42.0-75.0); Hemoglobin 9.8 g/dL (14.0-18.0); Mean Corpuscular HGB CONC 32.6 g/dL (32.0-36.0); Mean Corpuscular Hemoglobin 31.9 pg (27.0-31.0); Mean Platelet Volume 6.9 fL (7.4-10.4); Platelet Count 473 thou/uL (130-400); Red Blood Cell (RBC) Count 3.08 mill/uL (4.70-6.10); White Blood Cell (WBC) Count 28.1 thou/uL (4.8-10.8)
[2017-04-25 06:04] LABS: Anion Gap 8 mmol/L (10-20); BUN (Urea Nitrogen) 14 mg/dL (8.9-20.6); Calc. Creatinine Clearance 123 mL/min (70-130); Calcium 7.8 mg/dL (7.8-10.44); Carbon Dioxide 28 mmol/L (22-29); Chloride 104 mmol/L (98-107); Estimated GFR-MDRD Greater than 90; Glucose 82 mg/dL (70-105); Sodium 136 mmol/L (136-145)
[2017-04-25] MEDS: metroNIDAZOLE 500 MG in Premix Bag 1 BAG IVPB SCH ×3 (06:19→20:18)
[2017-04-25] MEDS: Ferrous Sulfate 325 MG TAB PO SCH ×2 (08:58→16:24)
[2017-04-25] MEDS: Cyanocobalamin (Vitamin B-12) 1,000 MCG TAB PO SCH (08:59)
[2017-04-25] MEDS: Famotidine 20 MG TAB PO SCH ×2 (08:59→20:20)
[2017-04-25] MEDS: Multivitamin W/ Minerals 1 TAB PO SCH (08:59)
[2017-04-25] MEDS: Saccharomyces boulardii 250 MG CAP PO SCH (08:59)
[2017-04-25] MEDS: Zinc Sulfate 220 MG CAP PO SCH (08:59)
[2017-04-25] MEDS: Folic Acid 1 MG TAB PO SCH (08:59)
[2017-04-25] MEDS: Indomethacin 25 mg Capsule PO SCH ×2 (09:00→20:20)
[2017-04-25] MEDS: Enoxaparin Sodium 40 MG/0.4 ML SYRINGE SC SCH (09:00)
[2017-04-25] MEDS: Ascorbic Acid 500 mg Chewable Tablet PO SCH (09:01)
[2017-04-25] MEDS: Vancomycin HCl 1.25 GM in Sodium Chloride 0.9% 250 ML 250 ML IVPB SCH ×2 (09:02→20:20)
--- NOTE | 2017-04-25 12:49 | PDOC.PN ---
- Subjective Encounter Start Date: 04/25/17 Encounter Start Time: 11:00 Subjective: feels better, getting wound care now -: pain well controlled on current meds - Objective Resuscitation Status: Resuscitation Status FULL:Full Resuscitation MAR Reviewed: Yes Vital Signs & Weight: Vital Signs (12 hours) Temp Pulse Resp BP Pulse Ox 04/25/17 10:10 97.4 F L 83 24 H 133/78 99 04/25/17 08:00 97.4 F L 83 24 H 04/25/17 01:11 97.4 F L 80 18 109/68 98 Weight Admit Weight 169 lb 15.616 oz Weight 169 lb 15.616 oz I&O: 04/24/17 04/25/17 04/26/17 06:59 06:59 06:59 Intake Total 1960 1960 Output Total 1850 1250 Balance 110 710 Result Diagrams: 04/25/17 05:17 04/25/17 05:17 Phys Exam - Physical Examination HEENT: PERRLA, moist MMs Neck: no JVD, supple Respiratory: no wheezing, no rales Cardiovascular: RRR, no significant murmur Gastrointestinal: soft, non-tender, positive bowel sounds Musculoskeletal: pulses present, edema present Neurological: non-focal, moves all 4 limbs Psychiatric: A&O x 3 Dx/Plan (1) Sepsis Code(s): A41.9 - SEPSIS, UNSPECIFIED ORGANISM Status: Acute Qualifiers: Sepsis type: sepsis due to unspecified organism Qualified Code(s): A41.9 - Sepsis, unspecified organism (2) Foot abscess, right Code(s): L02.611 - CUTANEOUS ABSCESS OF RIGHT FOOT Status: Acute Comment: s/ p debridement 04/18/2017 (3) Cellulitis of right lower limb Code(s): L03.115 - CELLULITIS OF RIGHT LOWER LIMB Status: Acute (4) Gout Code(s): M10.9 - GOUT, UNSPECIFIED Status: Chronic Qualifiers: Gout site: unspecified site (5) Alcohol abuse Code(s): F10.10 - ALCOHOL ABUSE, UNCOMPLICATED Status: Chronic Comment: drinks 4-6 beers/day (6) Tobacco abuse Code(s): Z72.0 - TOBACCO USE Status: Chronic (7) Hypoalbuminemia due to protein-calorie malnutrition Code(s): E46 - UNSPECIFIED PROTEIN-CALORIE MALNUTRITION Status: Chronic Comment: and alc abuse (8) Postoperative anemia due to acute blood loss Code(s): D62 - ACUTE POSTHEMORRHAGIC ANEMIA Status: Acute - Plan is on ceftriaxone, vanc and flagyl -: wbc around 28k, is off prednisone from 04/24/2017, bands have resolved -: to ambulate more and needs ankle and knee exercises to prevent dvt -: has low alb due to alc abuse, on ensure, evelyne, vit c and mvi along with zn -: No alc wd symptoms so far, is on thiamine and folic acid * . Review of Systems - Medications/Allergies Allergies/Adverse Reactions: Allergies Allergy/AdvReac Type Severity Reaction Status Date / Time No Known Allergies Allergy Unverified 04/16/17 22:20 Medications: Current Medications Acetaminophen (Tylenol) 650 mg PO Q4H PRN PRN Reason: Headache/Fever or Pain Acetaminophen/Codeine Phosphate (Tylenol #3) 1 tab PO Q4H PRN PRN Reason: Pain Hydrocodone Bitart/Acetaminophen ([place] 10/325) 1 tab PO Q4H PRN PRN Reason: Moderate Pain (4-6) Last Admin: 04/25/17 06:20 Dose: 1 tab Al Hydroxide/Mg Hydroxide (Maalox) 30 ml PO Q6H PRN PRN Reason: Heartburn or Indigestion Last Admin: 04/21/17 06:10 Dose: 30 ml Ascorbic Acid (Vitamin C) 500 mg PO DAILY [facility] Last Admin: 04/25/17 09:01 Dose: 500 mg Cyanocobalamin (Vitamin B-12) 1,000 mcg PO DAILY [facility] Last Admin: 04/25/17 08:59 Dose: 1,000 mcg Enoxaparin Sodium (Lovenox) 40 mg SC 0900 [facility] Last Admin: 04/25/17 09:00 Dose: 40 mg Famotidine (Pepcid) 20 mg PO BID [facility] Last Admin: 04/25/17 08:59 Dose: 20 mg Ferrous Sulfate (Feosol) 325 mg PO BID[facility] Last Admin: 04/25/17 08:58 Dose: 325 mg Folic Acid (Folvite) 1 mg PO DAILY [facility] Last Admin: 04/25/17 08:59 Dose: 1 mg Hydralazine HCl (Apresoline) 10 mg SLOW IVP Q4H PRN PRN Reason: Systolic BP > 180 Ceftriaxone Sodium 2 gm/ (Sodium Chloride) 100 mls @ 200 mls/hr IVPB 1700 [facility] Last Admin: 04/24/17 17:45 Dose: 100 mls Metronidazole 500 mg/ Device 100 mls @ 100 mls/hr IVPB 0400,1200,2000 [facility] Last Admin: 04/25/17 12:08 Dose: 100 mls Vancomycin HCl 1.25 gm/ Sodium (Chloride) 250 mls @ 166.667 mls/hr IVPB Q12HR [facility] Last Admin: 04/25/17 09:02 Dose: 250 mls Indomethacin (Indocin) 100 mg PO BID [facility] Last Admin: 04/25/17 09:00 Dose: 100 mg Iron/Minerals/Multivitamins (Theragran M) 1 tab PO DAILY [facility] Last Admin: 04/25/17 08:59 Dose: 1 tab Loperamide HCl (Imodium) 2 mg PO PRN PRN PRN Reason: Diarrhea/Loose Stools Last Admin: 04/22/17 20:59 Dose: 2 mg Magnesium Hydroxide (Milk Of Magnesium) 30 ml PO DAILYPRN PRN PRN Reason: Constipation Miscellaneous Medication (Pharmacy To Dose) 0 each IVPB PRN PRN PRN Reason: [facility] Pharmacy to Dose Morphine Sulfate (Morphine Sulfate) 4 mg IVP Q4H PRN PRN Reason: Severe Pain (7-10) Last Admin: 04/25/17 09:22 Dose: 4 mg Ondansetron HCl (Zofran Odt) 4 mg PO Q6H PRN PRN Reason: Nausea/Vomiting Last Admin: 04/24/17 17:50 Dose: 4 mg Ondansetron HCl (Zofran) 4 mg IVP Q6H PRN PRN Reason: Nausea/Vomiting Last Admin: 04/22/17 20:59 Dose: 4 mg Saccharomyces Boulardii (Florastor) 250 mg PO DAILY [facility] Last Admin: 04/25/17 08:59 Dose: 250 mg Senna (Senokot) 2 tab PO HSPRN PRN PRN Reason: Constipation Sodium Chloride (Flush - Normal Saline) 10 ml IVF Q12HR [facility] Last Admin: 04/25/17 09:06 Dose: Not Given Sodium Chloride (Flush - Normal Saline) 10 ml IVF PRN PRN PRN Reason: Saline Flush Thiamine HCl (Thiamine) 100 mg PO DAILY [facility] Last Admin: 04/25/17 08:59 Dose: 100 mg Zinc Sulfate (Zinc Sulfate) 220 mg PO DAILY [facility] Last Admin: 04/25/17 08:59 Dose: 220 mg
[2017-04-25] MEDS: cefTRIAXone\\ROCEPHIN 2 GM in Sodium Chloride 0.9% 100 ML IVPB SCH (16:23)
[2017-04-26] MEDS: metroNIDAZOLE 500 MG in Premix Bag 1 BAG IVPB SCH ×3 (05:03→21:09)
[2017-04-26] MEDS: HYDROcodone/Acetaminophen 10/325 mg Tablet PO PRN ×5 (05:04→22:27)
[2017-04-26 05:38] LABS: #Basophils 0.2 thou/uL (0.0-0.2); #Eosinphils 0.3 thou/uL (0.0-0.7); #Neutrophils 19.2 thou/uL (1.40-6.50); %Basophils 0.6 % (0.0-1.0); %Eosinophils 1.2 % (0.0-10.0); %Lymphocytes 15.6 % (21.0-51.0); %Monocytes 7.8 % (0.0-10.0); %Neutrophils 74.8 % (42.0-75.0); Hemoglobin 9.9 g/dL (14.0-18.0); Mean Corpuscular HGB CONC 31.4 g/dL (32.0-36.0); Mean Corpuscular Volume 98.8 fl (80.0-94.0); Mean Platelet Volume 6.8 fL (7.4-10.4); Platelet Count 489 thou/uL (130-400); RBC Distribution Width 15.4 % (11.5-14.5); Red Blood Cell (RBC) Count 3.18 mill/uL (4.70-6.10); White Blood Cell (WBC) Count 25.6 thou/uL (4.8-10.8)
[2017-04-26 06:20] LABS: Anion Gap 8 mmol/L (10-20); BUN (Urea Nitrogen) 11 mg/dL (8.9-20.6); Calc. Creatinine Clearance 125 mL/min (70-130); Carbon Dioxide 28 mmol/L (22-29); Chloride 104 mmol/L (98-107); Estimated GFR-MDRD Greater than 90; Glucose 79 mg/dL (70-105); Potassium 4.1 mmol/L (3.5-5.1); Sodium 136 mmol/L (136-145)
[2017-04-26 08:10] LABS: Vancomycin, Trough 22.1 ug/mL
[2017-04-26] MEDS: Ferrous Sulfate 325 MG TAB PO SCH ×2 (09:04→17:56)
[2017-04-26] MEDS: Multivitamin W/ Minerals 1 TAB PO SCH (09:04)
[2017-04-26] MEDS: Cyanocobalamin (Vitamin B-12) 1,000 MCG TAB PO SCH (09:04)
[2017-04-26] MEDS: Famotidine 20 MG TAB PO SCH ×2 (09:04→20:04)
[2017-04-26] MEDS: Enoxaparin Sodium 40 MG/0.4 ML SYRINGE SC SCH (09:04)
[2017-04-26] MEDS: Saccharomyces boulardii 250 MG CAP PO SCH (09:04)
[2017-04-26] MEDS: Folic Acid 1 MG TAB PO SCH (09:04)
[2017-04-26] MEDS: Vancomycin HCl 1 GM in Premix Bag 1 BAG IVPB SCH ×2 (09:05→22:23)
[2017-04-26] MEDS: Ascorbic Acid 500 mg Chewable Tablet PO SCH (09:05)
[2017-04-26] MEDS: Zinc Sulfate 220 MG CAP PO SCH (09:05)
[2017-04-26] MEDS: Indomethacin 25 mg Capsule PO SCH ×2 (09:10→20:04)
--- NOTE | 2017-04-26 13:35 | PDOC.PN ---
- Subjective Encounter Start Date: 04/26/17 Encounter Start Time: 10:30 patient is seen today, alert and oriented. has some bruises on his arms likely from anticoagulation. No concerns noted. - Objective Resuscitation Status: Resuscitation Status FULL:Full Resuscitation MAR Reviewed: Yes Vital Signs & Weight: Vital Signs (12 hours) Temp Pulse Resp BP Pulse Ox 04/26/17 11:57 98.7 F 102 H 20 138/71 97 04/26/17 08:00 98.6 F 95 12 116/66 99 Weight Admit Weight 169 lb 15.616 oz Weight 169 lb 15.616 oz I&O: 04/25/17 04/26/17 04/27/17 06:59 06:59 06:59 Intake Total 5120 Output Total 3400 Balance 1720 Result Diagrams: 04/26/17 04:56 04/26/17 04:56 Radiology Reviewed by me: Yes Phys Exam - Physical Examination HEENT: PERRLA, moist MMs Neck: no nodes, no JVD Respiratory: no wheezing, no rales Cardiovascular: RRR, no significant murmur Gastrointestinal: soft, non-tender Musculoskeletal: edema present Neurological: non-focal, normal sensation Lymphatic: no nodes Psychiatric: normal affect Skin: no rash, normal turgor Dx/Plan (1) Cellulitis of right lower limb Code(s): L03.115 - CELLULITIS OF RIGHT LOWER LIMB Status: Acute Comment: Contonue with IV rocephoin, vancomycin per ID, will closley monitor worseing CBC. No fever, on Wound vac. (2) Postoperative anemia due to acute blood loss Code(s): D62 - ACUTE POSTHEMORRHAGIC ANEMIA Status: Acute Comment: Continue to monitor stable, now. (3) Sepsis Code(s): A41.9 - SEPSIS, UNSPECIFIED ORGANISM Status: Acute Qualifiers: Sepsis type: sepsis due to unspecified organism Qualified Code(s): A41.9 - Sepsis, unspecified organism Comment: Strep pneumonia sepsis with source from Foot Abscess. Continue Above Abx. Will repat Blood Cultures. (4) Gout Code(s): M10.9 - GOUT, UNSPECIFIED Status: Chronic Qualifiers: Gout site: unspecified site Comment: Continue with indemethacin PRn for giat exacerbation, will start on Allopurinol. (5) Hypoalbuminemia due to protein-calorie malnutrition Code(s): E46 - UNSPECIFIED PROTEIN-CALORIE MALNUTRITION Status: Chronic Comment: and alc abuse - Plan cont current plan of care, continue antibiotics, PT/OT, social worker school, incentive spirometry, DVT proph w/lovenox * . - Discharge Day Encounter end time: 11:05 Review of Systems - Review of Systems Constitutional: weakness, malaise Eyes: negative: Pain, Vision Change, Conjunctivae Inflammation, Eyelid Inflammation, Redness, Other ENT: negative: Ear Pain, Ear Discharge, Nose Pain, Nose Discharge, Nose Congestion, Mouth Pain, Mouth Swelling, Throat Pain, Throat Swelling, Other Respiratory: negative: Cough, Dry, Shortness of Breath, Hemoptysis, SOB with Excertion, Pleuritic Pain, Sputum, Wheezing Cardiovascular: negative: chest pain, palpitations, orthopnea, paroxysmal nocturnal dyspnea, edema, light headedness, other Gastrointestinal: negative: Nausea, Vomiting, Abdominal Pain, Diarrhea, Constipation, Melena, Hematochezia, Other Musculoskeletal: Leg Pain, Foot Pain. negative: Neck Pain, Shoulder Pain, Arm Pain, Back Pain, Hand Pain, Other Skin: Bruising (upper mextremitis) - Medications/Allergies Allergies/Adverse Reactions: Allergies Allergy/AdvReac Type Severity Reaction Status Date / Time No Known Allergies Allergy Unverified 04/16/17 22:20 Medications: Current Medications Acetaminophen (Tylenol) 650 mg PO Q4H PRN PRN Reason: Headache/Fever or Pain Acetaminophen/Codeine Phosphate (Tylenol #3) 1 tab PO Q4H PRN PRN Reason: Pain Hydrocodone Bitart/Acetaminophen ([place] 10/325) 1 tab PO Q4H PRN PRN Reason: Moderate Pain (4-6) Last Admin: 04/26/17 13:19 Dose: 1 tab Al Hydroxide/Mg Hydroxide (Maalox) 30 ml PO Q6H PRN PRN Reason: Heartburn or Indigestion Last Admin: 04/21/17 06:10 Dose: 30 ml Ascorbic Acid (Vitamin C) 500 mg PO DAILY [facility] Last Admin: 04/26/17 09:05 Dose: 500 mg Cyanocobalamin (Vitamin B-12) 1,000 mcg PO DAILY [facility] Last Admin: 04/26/17 09:04 Dose: 1,000 mcg Enoxaparin Sodium (Lovenox) 40 mg SC 0900 [facility] Last Admin: 04/26/17 09:04 Dose: 40 mg Famotidine (Pepcid) 20 mg PO BID [facility] Last Admin: 04/26/17 09:04 Dose: 20 mg Ferrous Sulfate (Feosol) 325 mg PO BID[facility] Last Admin: 04/26/17 09:04 Dose: 325 mg Folic Acid (Folvite) 1 mg PO DAILY [facility] Last Admin: 04/26/17 09:04 Dose: 1 mg Hydralazine HCl (Apresoline) 10 mg SLOW IVP Q4H PRN PRN Reason: Systolic BP > 180 Ceftriaxone Sodium 2 gm/ (Sodium Chloride) 100 mls @ 200 mls/hr IVPB 1700 [facility] Last Admin: 04/25/17 16:23 Dose: 100 mls Metronidazole 500 mg/ Device 100 mls @ 100 mls/hr IVPB 0400,1200,2000 [facility] Last Admin: 04/26/17 12:11 Dose: 100 mls Vancomycin HCl 1 gm/ Device 200 mls @ 200 mls/hr IVPB Q12HR [facility] Last Admin: 04/26/17 09:05 Dose: 200 mls Indomethacin (Indocin) 100 mg PO BID [facility] Last Admin: 04/26/17 09:10 Dose: 100 mg Iron/Minerals/Multivitamins (Theragran M) 1 tab PO DAILY [facility] Last Admin: 04/26/17 09:04 Dose: 1 tab Loperamide HCl (Imodium) 2 mg PO PRN PRN PRN Reason: Diarrhea/Loose Stools Last Admin: 04/22/17 20:59 Dose: 2 mg Magnesium Hydroxide (Milk Of Magnesium) 30 ml PO DAILYPRN PRN PRN Reason: Constipation Miscellaneous Medication (Pharmacy To Dose) 0 each IVPB PRN PRN PRN Reason: [facility] Pharmacy to Dose Morphine Sulfate (Morphine Sulfate) 4 mg IVP Q4H PRN PRN Reason: Severe Pain (7-10) Last Admin: 04/25/17 09:22 Dose: 4 mg Ondansetron HCl (Zofran Odt) 4 mg PO Q6H PRN PRN Reason: Nausea/Vomiting Last Admin: 04/24/17 17:50 Dose: 4 mg Ondansetron HCl (Zofran) 4 mg IVP Q6H PRN PRN Reason: Nausea/Vomiting Last Admin: 04/22/17 20:59 Dose: 4 mg Saccharomyces Boulardii (Florastor) 250 mg PO DAILY [facility] Last Admin: 04/26/17 09:04 Dose: 250 mg Senna (Senokot) 2 tab PO HSPRN PRN PRN Reason: Constipation Sodium Chloride (Flush - Normal Saline) 10 ml IVF Q12HR [facility] Last Admin: 04/26/17 09:05 Dose: Not Given Sodium Chloride (Flush - Normal Saline) 10 ml IVF PRN PRN PRN Reason: Saline Flush Thiamine HCl (Thiamine) 100 mg PO DAILY [facility] Last Admin: 04/26/17 09:04 Dose: 100 mg Zinc Sulfate (Zinc Sulfate) 220 mg PO DAILY [facility] Last Admin: 04/26/17 09:05 Dose: 220 mg
[2017-04-26] MEDS: cefTRIAXone\\ROCEPHIN 2 GM in Sodium Chloride 0.9% 100 ML IVPB SCH (20:00)
[2017-04-27] MEDS: Acetaminophen/Codeine 30-300mg Tablet PO PRN (02:15)
[2017-04-27] MEDS: metroNIDAZOLE 500 MG in Premix Bag 1 BAG IVPB SCH ×3 (04:31→20:20)
[2017-04-27 05:34] LABS: #Basophils 0.1 thou/uL (0.0-0.2); Hemoglobin 8.9 g/dL (14.0-18.0); RBC Distribution Width 15.3 % (11.5-14.5)
[2017-04-27 05:48] LABS: Anion Gap 7 mmol/L (10-20); BUN (Urea Nitrogen) 9 mg/dL (8.9-20.6); Calc. Creatinine Clearance 123 mL/min (70-130); Calcium 7.7 mg/dL (7.8-10.44); Carbon Dioxide 29 mmol/L (22-29); Chloride 105 mmol/L (98-107); Estimated GFR-MDRD Greater than 90; Glucose 89 mg/dL (70-105); Potassium 4.1 mmol/L (3.5-5.1); Sodium 137 mmol/L (136-145)
[2017-04-27 05:51] LABS: #Eosinphils 0.3 thou/uL (0.0-0.7); #Lymphocytes 2.4 thou/uL (1.20-3.40); #Monocytes 1.8 thou/uL (0.11-0.59); #Neutrophils 18.2 thou/uL (1.40-6.50); %Basophils 0.5 % (0.0-1.0); %Eosinophils 1.2 % (0.0-10.0); %Lymphocytes 10.6 % (21.0-51.0); %Neutrophils 79.6 % (42.0-75.0); Mean Corpuscular HGB CONC 31.7 g/dL (32.0-36.0); Mean Corpuscular Hemoglobin 31.4 pg (27.0-31.0); Mean Corpuscular Volume 98.9 fl (80.0-94.0); Mean Platelet Volume 6.8 fL (7.4-10.4); Platelet Count 414 thou/uL (130-400); Red Blood Cell (RBC) Count 2.85 mill/uL (4.70-6.10); White Blood Cell (WBC) Count 22.8 thou/uL (4.8-10.8)
[2017-04-27] MEDS: HYDROcodone/Acetaminophen 10/325 mg Tablet PO PRN ×3 (07:12→19:31)
[2017-04-27] MEDS: Vancomycin HCl 1 GM in Premix Bag 1 BAG IVPB SCH ×2 (08:12→20:23)
[2017-04-27] MEDS: Famotidine 20 MG TAB PO SCH ×2 (08:13→20:21)
[2017-04-27] MEDS: Enoxaparin Sodium 40 MG/0.4 ML SYRINGE SC SCH (08:13)
[2017-04-27] MEDS: Ferrous Sulfate 325 MG TAB PO SCH ×2 (08:13→17:00)
[2017-04-27] MEDS: Ascorbic Acid 500 mg Chewable Tablet PO SCH (08:13)
[2017-04-27] MEDS: Zinc Sulfate 220 MG CAP PO SCH (08:13)
[2017-04-27] MEDS: Saccharomyces boulardii 250 MG CAP PO SCH (08:13)
[2017-04-27] MEDS: Folic Acid 1 MG TAB PO SCH (08:14)
[2017-04-27] MEDS: Indomethacin 25 mg Capsule PO SCH ×2 (08:14→20:21)
[2017-04-27] MEDS: Multivitamin W/ Minerals 1 TAB PO SCH (08:14)
[2017-04-27] MEDS: Cyanocobalamin (Vitamin B-12) 1,000 MCG TAB PO SCH (08:14)
--- NOTE | 2017-04-27 15:25 | PDOC.PN ---
- Subjective Encounter Start Date: 04/27/17 Encounter Start Time: 10:30 Beto is seen today, alert and orienrted. he has Wound vac Changed today. pain is well controlled on Tylenol3, Pt has persistant WBC elevation but is trending down now. - Objective Resuscitation Status: Resuscitation Status FULL:Full Resuscitation MAR Reviewed: Yes Vital Signs & Weight: Vital Signs (12 hours) Temp Pulse Resp BP Pulse Ox 04/27/17 08:12 98.4 F 86 14 98 04/27/17 08:00 98.4 F 86 14 100/58 L 98 04/27/17 04:24 98.1 F 83 16 107/66 98 Weight Admit Weight 169 lb 15.616 oz Weight 169 lb 15.616 oz I&O: 04/26/17 04/27/17 04/28/17 06:59 06:59 06:59 Intake Total 5120 2770 Output Total 3400 1850 Balance 1720 920 Result Diagrams: 04/27/17 05:04 04/27/17 05:04 Phys Exam - Physical Examination HEENT: PERRLA, moist MMs Neck: no nodes, no JVD Respiratory: no wheezing, no rales Cardiovascular: RRR, no significant murmur Gastrointestinal: soft, non-tender Musculoskeletal: pulses present, edema present (Erythema noted left leg calf) Neurological: non-focal, normal sensation Dx/Plan (1) Cellulitis of right lower limb Code(s): L03.115 - CELLULITIS OF RIGHT LOWER LIMB Status: Acute Comment: Contonue with IV rocephoin, vancomycin per ID, will closley monitor worseing CBC. No fever, on Wound vac. May need outpaitent wound vac, pt has no insurance. (2) Postoperative anemia due to acute blood loss Code(s): D62 - ACUTE POSTHEMORRHAGIC ANEMIA Status: Acute Comment: Continue to monitor stable, now. (3) Sepsis Code(s): A41.9 - SEPSIS, UNSPECIFIED ORGANISM Status: Acute Qualifiers: Sepsis type: sepsis due to unspecified organism Qualified Code(s): A41.9 - Sepsis, unspecified organism Comment: Strep pneumonia sepsis with source from Foot Abscess. Continue Above Abx. Will repat Blood Cultures. (4) Gout Code(s): M10.9 - GOUT, UNSPECIFIED Status: Chronic Qualifiers: Gout site: unspecified site Comment: Continue with indemethacin PRn for giat exacerbation, will start on Allopurinol. (5) Hypoalbuminemia due to protein-calorie malnutrition Code(s): E46 - UNSPECIFIED PROTEIN-CALORIE MALNUTRITION Status: Chronic Comment: and alc abuse - Plan cont current plan of care, continue antibiotics, PT/OT, incentive spirometry, DVT proph w/lovenox, DVT proph w/SCDs * . - Discharge Day Encounter end time: 11:10 Review of Systems - Review of Systems Eyes: negative: Pain, Vision Change, Conjunctivae Inflammation, Eyelid Inflammation, Redness, Other ENT: negative: Ear Pain, Ear Discharge, Nose Pain, Nose Discharge, Nose Congestion, Mouth Pain, Mouth Swelling, Throat Pain, Throat Swelling, Other Respiratory: negative: Cough, Dry, Shortness of Breath, Hemoptysis, SOB with Excertion, Pleuritic Pain, Sputum, Wheezing Cardiovascular: negative: chest pain, palpitations, orthopnea, paroxysmal nocturnal dyspnea, edema, light headedness, other Gastrointestinal: negative: Nausea, Vomiting, Abdominal Pain, Diarrhea, Constipation, Melena, Hematochezia, Other Genitourinary: negative: Dysuria, Frequency, Incontinence, Hematuria, Retention , Other Musculoskeletal: negative: Neck Pain, Shoulder Pain, Arm Pain, Back Pain, Hand Pain, Leg Pain, Foot Pain, Other - Medications/Allergies Allergies/Adverse Reactions: Allergies Allergy/AdvReac Type Severity Reaction Status Date / Time No Known Allergies Allergy Unverified 04/16/17 22:20 Medications: Current Medications Acetaminophen (Tylenol) 650 mg PO Q4H PRN PRN Reason: Headache/Fever or Pain Acetaminophen/Codeine Phosphate (Tylenol #3) 1 tab PO Q4H PRN PRN Reason: Pain Last Admin: 04/27/17 02:15 Dose: 1 tab Hydrocodone Bitart/Acetaminophen ([place] 10/325) 1 tab PO Q4H PRN PRN Reason: Pain 4-6 Last Admin: 04/27/17 13:53 Dose: 1 tab Al Hydroxide/Mg Hydroxide (Maalox) 30 ml PO Q6H PRN PRN Reason: Heartburn or Indigestion Last Admin: 04/21/17 06:10 Dose: 30 ml Ascorbic Acid (Vitamin C) 500 mg PO DAILY [facility] Last Admin: 04/27/17 08:13 Dose: 500 mg Cyanocobalamin (Vitamin B-12) 1,000 mcg PO DAILY [facility] Last Admin: 04/27/17 08:14 Dose: 1,000 mcg Enoxaparin Sodium (Lovenox) 40 mg SC 0900 [facility] Last Admin: 04/27/17 08:13 Dose: 40 mg Famotidine (Pepcid) 20 mg PO BID [facility] Last Admin: 04/27/17 08:13 Dose: 20 [facility] Admin: 04/27/17 08:13 Dose: 325 mg Folic Acid (Folvite) 1 mg PO DAILY [facility] Last Admin: 04/27/17 08:14 Dose: 1 mg Hydralazine HCl (Apresoline) 10 mg SLOW IVP Q4H PRN PRN Reason: Systolic BP > 180 Ceftriaxone Sodium 2 gm/ (Sodium Chloride) 100 mls @ 200 mls/hr IVPB 1700 [facility] Last Admin: 04/26/17 20:00 Dose: 100 mls Metronidazole 500 mg/ Device 100 mls @ 100 mls/hr IVPB 0400,1200,2000 [facility] Last Admin: 04/27/17 11:34 Dose: 100 mls Vancomycin HCl 1 gm/ Device 200 mls @ 200 mls/hr IVPB Q12HR [facility] Last Admin: 04/27/17 08:12 Dose: 200 mls Indomethacin (Indocin) 100 mg PO BID [facility] Last Admin: 04/27/17 08:14 Dose: 100 mg Iron/Minerals/Multivitamins (Theragran M) 1 tab PO DAILY [facility] Last Admin: 04/27/17 08:14 Dose: 1 tab Loperamide HCl (Imodium) 2 mg PO PRN PRN PRN Reason: Diarrhea/Loose Stools Last Admin: 04/22/17 20:59 Dose: 2 mg Magnesium Hydroxide (Milk Of Magnesium) 30 ml PO DAILYPRN PRN PRN Reason: Constipation Miscellaneous Medication (Pharmacy To Dose) 0 each IVPB PRN PRN PRN Reason: [facility] Pharmacy to Dose Morphine Sulfate (Morphine Sulfate) 4 mg IVP Q4H PRN PRN Reason: Severe Pain (7-10) Last Admin: 04/27/17 09:54 Dose: 4 mg Ondansetron HCl (Zofran Odt) 4 mg PO Q6H PRN PRN Reason: Nausea/Vomiting Last Admin: 04/24/17 17:50 Dose: 4 mg Ondansetron HCl (Zofran) 4 mg IVP Q6H PRN PRN Reason: Nausea/Vomiting Last Admin: 04/22/17 20:59 Dose: 4 mg Saccharomyces Boulardii (Florastor) 250 mg PO DAILY [facility] Last Admin: 04/27/17 08:13 Dose: 250 mg Senna (Senokot) 2 tab PO HSPRN PRN PRN Reason: Constipation Sodium Chloride (Flush - Normal Saline) 10 ml IVF Q12HR [facility] Last Admin: 04/27/17 08:14 Dose: 10 ml Sodium Chloride (Flush - Normal Saline) 10 ml IVF PRN PRN PRN Reason: Saline Flush Thiamine HCl (Thiamine) 100 mg PO DAILY [facility] Last Admin: 04/27/17 08:13 Dose: 100 mg Zinc Sulfate (Zinc Sulfate) 220 mg PO DAILY [facility] Last Admin: 04/27/17 08:13 Dose: 220 mg
[2017-04-27] MEDS: cefTRIAXone\\ROCEPHIN 2 GM in Sodium Chloride 0.9% 100 ML IVPB SCH (17:00)
[2017-04-27 20:33] LABS: Vancomycin, Trough 18.6 ug/mL
[2017-04-28] MEDS: metroNIDAZOLE 500 MG in Premix Bag 1 BAG IVPB SCH ×3 (03:11→20:36)
[2017-04-28] MEDS: Acetaminophen/Codeine 30-300mg Tablet PO PRN ×2 (03:13→07:33)
[2017-04-28 04:27] LABS: #Basophils 0.1 thou/uL (0.0-0.2); #Eosinphils 0.2 thou/uL (0.0-0.7); #Lymphocytes 2.3 thou/uL (1.20-3.40); #Monocytes 1.7 thou/uL (0.11-0.59); #Neutrophils 13.5 thou/uL (1.40-6.50); %Basophils 0.6 % (0.0-1.0); %Eosinophils 1.3 % (0.0-10.0); %Lymphocytes 13.1 % (21.0-51.0); %Monocytes 9.6 % (0.0-10.0); %Neutrophils 75.5 % (42.0-75.0); Hemoglobin 8.1 g/dL (14.0-18.0); Mean Corpuscular HGB CONC 32.7 g/dL (32.0-36.0); Mean Corpuscular Hemoglobin 32.5 pg (27.0-31.0); Mean Corpuscular Volume 99.5 fl (80.0-94.0); Mean Platelet Volume 6.8 fL (7.4-10.4); Platelet Count 370 thou/uL (130-400); RBC Distribution Width 15.2 % (11.5-14.5); Red Blood Cell (RBC) Count 2.48 mill/uL (4.70-6.10); White Blood Cell (WBC) Count 17.8 thou/uL (4.8-10.8)
[2017-04-28 04:39] LABS: Anion Gap 5 mmol/L (10-20); BUN (Urea Nitrogen) 8 mg/dL (8.9-20.6); Calc. Creatinine Clearance 119 mL/min (70-130); Calcium 7.6 mg/dL (7.8-10.44); Carbon Dioxide 30 mmol/L (22-29); Chloride 104 mmol/L (98-107); Estimated GFR-MDRD Greater than 90; Glucose 115 mg/dL (70-105); Potassium 4.1 mmol/L (3.5-5.1); Sodium 135 mmol/L (136-145)
[2017-04-28] MEDS: HYDROcodone/Acetaminophen 10/325 mg Tablet PO PRN ×3 (05:42→22:53)
[2017-04-28] MEDS: Ferrous Sulfate 325 MG TAB PO SCH ×2 (07:34→17:35)
[2017-04-28] MEDS: Folic Acid 1 MG TAB PO SCH (07:35)
[2017-04-28] MEDS: Multivitamin W/ Minerals 1 TAB PO SCH (07:35)
[2017-04-28] MEDS: Zinc Sulfate 220 MG CAP PO SCH (07:35)
[2017-04-28] MEDS: Enoxaparin Sodium 40 MG/0.4 ML SYRINGE SC SCH (07:35)
[2017-04-28] MEDS: Ascorbic Acid 500 mg Chewable Tablet PO SCH (07:35)
[2017-04-28] MEDS: Cyanocobalamin (Vitamin B-12) 1,000 MCG TAB PO SCH (07:35)
[2017-04-28] MEDS: Saccharomyces boulardii 250 MG CAP PO SCH (07:35)
[2017-04-28] MEDS: Famotidine 20 MG TAB PO SCH ×2 (07:35→20:35)
[2017-04-28] MEDS: Indomethacin 25 mg Capsule PO SCH ×2 (08:46→20:36)
[2017-04-28] MEDS: Vancomycin HCl 1 GM in Premix Bag 1 BAG IVPB SCH ×2 (08:46→21:58)
--- NOTE | 2017-04-28 14:53 | PDOC.PN ---
- Subjective Encounter Start Date: 04/28/17 Encounter Start Time: 10:00 Patient is seen today, alert and oriened. No other Concerns noted. Will continue with IV antibiotics, showing good improvement in his WBC. Waiting on ID / Surgery to recommed length of Antibiotics, otherwise, ideally for such an extensive cellilitis ideally with Blood Cultures positive for Strep, will continue for 2 weeks total. - Objective Resuscitation Status: Resuscitation Status FULL:Full Resuscitation MAR Reviewed: Yes Vital Signs & Weight: Vital Signs (12 hours) Temp Pulse Resp BP Pulse Ox 04/28/17 12:00 98.6 F 80 12 135/75 99 04/28/17 11:44 98.6 F 80 12 135/75 99 04/28/17 08:30 98.2 F 93 12 119/62 99 04/28/17 07:55 98.2 F 93 12 119/62 99 04/28/17 03:44 97.7 F 89 16 103/60 97 Weight Admit Weight 169 lb 15.616 oz Weight 169 lb 15.616 oz I&O: 04/27/17 04/28/17 04/29/17 06:59 06:59 06:59 Intake Total 2770 1600 Output Total 1850 2850 Balance 920 -1250 Result Diagrams: 04/28/17 03:57 04/28/17 03:57 Phys Exam - Physical Examination HEENT: PERRLA Neck: no nodes Respiratory: no wheezing Cardiovascular: RRR Gastrointestinal: soft, non-tender Musculoskeletal: no edema, pulses present Lymphatic: no nodes Psychiatric: normal affect, A&O x 3 Skin: no rash, normal turgor Dx/Plan (1) Cellulitis of right lower limb Code(s): L03.115 - CELLULITIS OF RIGHT LOWER LIMB Status: Acute Comment: Contonue with IV rocephoin, vancomycin per ID, will closley monitor worseing CBC. No fever, on Wound vac. May need outpaitent wound vac, pt has no insurance. Wound vac arrnaged for Symone. (2) Postoperative anemia due to acute blood loss Code(s): D62 - ACUTE POSTHEMORRHAGIC ANEMIA Status: Acute Comment: Continue to monitor stable, now. (3) Sepsis Code(s): A41.9 - SEPSIS, UNSPECIFIED ORGANISM Status: Acute Qualifiers: Sepsis type: sepsis due to unspecified organism Qualified Code(s): A41.9 - Sepsis, unspecified organism Comment: Strep pneumonia sepsis with source from Foot Abscess. Continue Above Abx. Will repat Blood Cultures. (4) Gout Code(s): M10.9 - GOUT, UNSPECIFIED Status: Chronic Qualifiers: Gout site: unspecified site Comment: Continue with indemethacin PRn for giat exacerbation, will start on Allopurinol. (5) Hypoalbuminemia due to protein-calorie malnutrition Code(s): E46 - UNSPECIFIED PROTEIN-CALORIE MALNUTRITION Status: Chronic Comment: and alc abuse - Plan cont current plan of care, continue antibiotics, PT/OT, social insurance adviser, DVT proph w/lovenox * . - Discharge Day Encounter end time: 10:35 Review of Systems - Review of Systems Constitutional: negative: fever, chills, sweats, weakness, malaise, other Eyes: negative: Pain, Vision Change, Conjunctivae Inflammation, Eyelid Inflammation, Redness, Other ENT: negative: Ear Pain, Ear Discharge, Nose Pain, Nose Discharge, Nose Congestion, Mouth Pain, Mouth Swelling, Throat Pain, Throat Swelling, Other Respiratory: negative: Cough, Dry, Shortness of Breath, Hemoptysis, SOB with Excertion, Pleuritic Pain, Sputum, Wheezing Cardiovascular: negative: chest pain, palpitations, orthopnea, paroxysmal nocturnal dyspnea, edema, light headedness, other Gastrointestinal: negative: Nausea, Vomiting, Abdominal Pain, Diarrhea, Constipation, Melena, Hematochezia, Other Musculoskeletal: Leg Pain. negative: Neck Pain, Shoulder Pain, Arm Pain, Back Pain, Hand Pain, Foot Pain, Other Neurological: negative: Weakness, Numbness, Incoordination, Change in Speech, Confusion, Seizures, Other - Medications/Allergies Allergies/Adverse Reactions: Allergies Allergy/AdvReac Type Severity Reaction Status Date / Time No Known Allergies Allergy Unverified 04/16/17 22:20 Medications: Current Medications Acetaminophen (Tylenol) 650 mg PO Q4H PRN PRN Reason: Headache/Fever or Pain Acetaminophen/Codeine Phosphate (Tylenol #3) 1 tab PO Q4H PRN PRN Reason: Pain Last Admin: 04/28/17 07:33 Dose: 1 tab Hydrocodone Bitart/Acetaminophen ([place] 10/325) 1 tab PO Q4H PRN PRN Reason: Pain 4-6 Last Admin: 04/28/17 05:42 Dose: 1 tab Al Hydroxide/Mg Hydroxide (Maalox) 30 ml PO Q6H PRN PRN Reason: Heartburn or Indigestion Last Admin: 04/21/17 06:10 Dose: 30 ml Ascorbic Acid (Vitamin C) 500 mg PO DAILY [facility] Last Admin: 04/28/17 07:35 Dose: 500 mg Cyanocobalamin (Vitamin B-12) 1,000 mcg PO DAILY [facility] Last Admin: 04/28/17 07:35 Dose: 1,000 mcg Enoxaparin Sodium (Lovenox) 40 mg SC 0900 [facility] Last Admin: 04/28/17 07:35 Dose: 40 mg Famotidine (Pepcid) 20 mg PO BID [facility] Last Admin: 04/28/17 07:35 Dose: 20 mg [facility] ([facility]) [facility] Last Admin: 04/28/17 07:34 Dose: 325 mg Folic Acid (Folvite) 1 mg PO DAILY [facility] Last Admin: 04/28/17 07:35 Dose: 1 mg Hydralazine HCl (Apresoline) 10 mg SLOW IVP Q4H PRN PRN Reason: Systolic BP > 180 Ceftriaxone Sodium 2 gm/ (Sodium Chloride) 100 mls @ 200 mls/hr IVPB 1700 [facility] Last Admin: 04/27/17 17:00 Dose: 100 mls Metronidazole 500 mg/ Device 100 mls @ 100 mls/hr IVPB 0400,1200,2000 [facility] Last Admin: 04/28/17 12:04 Dose: 100 mls Vancomycin HCl 1 gm/ Device 200 mls @ 200 mls/hr IVPB Q12HR [facility] Last Admin: 04/28/17 08:46 Dose: 200 mls Indomethacin (Indocin) 100 mg PO BID [facility] Last Admin: 04/28/17 08:46 Dose: 100 mg Iron/Minerals/Multivitamins (Theragran M) 1 tab PO DAILY [facility] Last Admin: 04/28/17 07:35 Dose: 1 tab Loperamide HCl (Imodium) 2 mg PO PRN PRN PRN Reason: Diarrhea/Loose Stools Last Admin: 04/22/17 20:59 Dose: 2 mg Magnesium Hydroxide (Milk Of Magnesium) 30 ml PO DAILYPRN PRN PRN Reason: Constipation Miscellaneous Medication (Pharmacy To Dose) 0 each IVPB PRN PRN PRN Reason: [facility] Pharmacy to Dose Morphine Sulfate (Morphine Sulfate) 4 mg IVP Q4H PRN PRN Reason: Severe Pain (7-10) Last Admin: 04/27/17 09:54 Dose: 4 mg Ondansetron HCl (Zofran Odt) 4 mg PO Q6H PRN PRN Reason: Nausea/Vomiting Last Admin: 04/24/17 17:50 Dose: 4 mg Ondansetron HCl (Zofran) 4 mg IVP Q6H PRN PRN Reason: Nausea/Vomiting Last Admin: 04/22/17 20:59 Dose: 4 mg Saccharomyces Boulardii (Florastor) 250 mg PO DAILY [facility] Last Admin: 04/28/17 07:35 Dose: 250 mg Senna (Senokot) 2 tab PO HSPRN PRN PRN Reason: Constipation Sodium Chloride (Flush - Normal Saline) 10 ml IVF Q12HR [facility] Last Admin: 04/28/17 08:46 Dose: 10 ml Sodium Chloride (Flush - Normal Saline) 10 ml IVF PRN PRN PRN Reason: Saline Flush Thiamine HCl (Thiamine) 100 mg PO DAILY [facility] Last Admin: 04/28/17 07:35 Dose: 100 mg Zinc Sulfate (Zinc Sulfate) 220 mg PO DAILY [facility] Last Admin: 04/28/17 07:35 Dose: 220 mg
[2017-04-28] MEDS: cefTRIAXone\\ROCEPHIN 2 GM in Sodium Chloride 0.9% 100 ML IVPB SCH (17:37)
[2017-04-28] MEDS: diphenhydrAMINE 25 MG CAP PO PRN (22:51)
[2017-04-29] MEDS: metroNIDAZOLE 500 MG in Premix Bag 1 BAG IVPB SCH ×2 (03:29→12:13)
[2017-04-29 04:20] LABS: #Basophils 0.1 thou/uL (0.0-0.2); #Eosinphils 0.3 thou/uL (0.0-0.7); #Lymphocytes 1.9 thou/uL (1.20-3.40); #Monocytes 1.5 thou/uL (0.11-0.59); #Neutrophils 12.7 thou/uL (1.40-6.50); %Basophils 0.8 % (0.0-1.0); %Eosinophils 1.6 % (0.0-10.0); %Lymphocytes 11.3 % (21.0-51.0); %Monocytes 9.2 % (0.0-10.0); %Neutrophils 77.2 % (42.0-75.0); Hemoglobin 8.3 g/dL (14.0-18.0); Mean Corpuscular HGB CONC 31.8 g/dL (32.0-36.0); Mean Corpuscular Hemoglobin 31.7 pg (27.0-31.0); Mean Corpuscular Volume 99.7 fl (80.0-94.0); Mean Platelet Volume 6.8 fL (7.4-10.4); Platelet Count 380 thou/uL (130-400); RBC Distribution Width 15.2 % (11.5-14.5); Red Blood Cell (RBC) Count 2.63 mill/uL (4.70-6.10); White Blood Cell (WBC) Count 16.5 thou/uL (4.8-10.8)
[2017-04-29 04:32] LABS: Anion Gap 8 mmol/L (10-20); BUN (Urea Nitrogen) 6 mg/dL (8.9-20.6); Calc. Creatinine Clearance 120 mL/min (70-130); Calcium 7.7 mg/dL (7.8-10.44); Carbon Dioxide 28 mmol/L (22-29); Chloride 105 mmol/L (98-107); Estimated GFR-MDRD Greater than 90; Glucose 84 mg/dL (70-105); Potassium 3.9 mmol/L (3.5-5.1); Sodium 137 mmol/L (136-145)
[2017-04-29] MEDS: HYDROcodone/Acetaminophen 10/325 mg Tablet PO PRN ×3 (06:08→22:16)
[2017-04-29] MEDS: diphenhydrAMINE 25 MG CAP PO PRN ×2 (06:10→22:17)
[2017-04-29] MEDS: Cyanocobalamin (Vitamin B-12) 1,000 MCG TAB PO SCH (08:53)
[2017-04-29] MEDS: Enoxaparin Sodium 40 MG/0.4 ML SYRINGE SC SCH (08:53)
[2017-04-29] MEDS: Saccharomyces boulardii 250 MG CAP PO SCH (08:53)
[2017-04-29] MEDS: Zinc Sulfate 220 MG CAP PO SCH (08:53)
[2017-04-29] MEDS: Ascorbic Acid 500 mg Chewable Tablet PO SCH (08:53)
[2017-04-29] MEDS: Multivitamin W/ Minerals 1 TAB PO SCH (08:53)
[2017-04-29] MEDS: Famotidine 20 MG TAB PO SCH ×2 (08:53→22:16)
[2017-04-29] MEDS: Folic Acid 1 MG TAB PO SCH (08:53)
[2017-04-29] MEDS: Ferrous Sulfate 325 MG TAB PO SCH ×2 (08:53→17:41)
[2017-04-29] MEDS: Vancomycin HCl 1 GM in Premix Bag 1 BAG IVPB SCH (08:53)
[2017-04-29] MEDS: Indomethacin 25 mg Capsule PO SCH ×2 (08:53→22:17)
--- NOTE | 2017-04-29 14:02 | PDOC.PN ---
- Subjective Encounter Start Date: 04/29/17 Encounter Start Time: 10:30 Patient is seen today, alert and oriented. No other concerns noted. Waiting on ID recommedations about length of antibioitcs course. - Objective Resuscitation Status: Resuscitation Status FULL:Full Resuscitation MAR Reviewed: Yes Vital Signs & Weight: Vital Signs (12 hours) Temp Pulse Resp BP Pulse Ox 04/29/17 11:40 98.8 F 92 20 119/68 99 04/29/17 08:00 98.4 F 84 20 04/29/17 07:50 98.4 F 84 20 101/62 99 04/29/17 04:00 97.6 F 90 18 115/66 96 Weight Admit Weight 169 lb 15.616 oz Weight 169 lb 15.616 oz I&O: 04/28/17 04/29/17 04/30/17 06:59 06:59 06:59 Intake Total 1600 2200 Output Total 2850 3635 Balance -1250 -1435 Result Diagrams: 04/29/17 03:51 04/29/17 03:51 Radiology Reviewed by me: Yes Phys Exam - Physical Examination HEENT: PERRLA, moist MMs Neck: no nodes, no JVD Respiratory: no wheezing, no rales Cardiovascular: RRR, no significant murmur Gastrointestinal: soft, non-tender Musculoskeletal: edema present (Increassing redness of the Right lower extremity but no tenderness.) Dx/Plan (1) Cellulitis of right lower limb Code(s): L03.115 - CELLULITIS OF RIGHT LOWER LIMB Status: Acute Comment: Contonue with IV rocephoin, vancomycin per ID, will closley monitor worseing CBC. No fever, on Wound vac. May need outpaitent wound vac, pt has no insurance. Wound vac arrnaged for Symone. (2) Postoperative anemia due to acute blood loss Code(s): D62 - ACUTE POSTHEMORRHAGIC ANEMIA Status: Acute Comment: Continue to monitor stable, now. (3) Sepsis Code(s): A41.9 - SEPSIS, UNSPECIFIED ORGANISM Status: Acute Qualifiers: Sepsis type: sepsis due to unspecified organism Qualified Code(s): A41.9 - Sepsis, unspecified organism Comment: Strep pneumonia sepsis with source from Foot Abscess. Continue Above Abx. Will repat Blood Cultures. (4) Gout Code(s): M10.9 - GOUT, UNSPECIFIED Status: Chronic Qualifiers: Gout site: unspecified site Comment: Continue with indemethacin PRn for giat exacerbation, will start on Allopurinol. (5) Hypoalbuminemia due to protein-calorie malnutrition Code(s): E46 - UNSPECIFIED PROTEIN-CALORIE MALNUTRITION Status: Chronic Comment: and alc abuse - Plan cont current plan of care, continue antibiotics, PT/OT, social media director, DVT proph w/lovenox * . - Discharge Day Encounter end time: 11:15 Review of Systems - Review of Systems Constitutional: negative: fever, chills, sweats, weakness, malaise, other Eyes: negative: Pain, Vision Change, Conjunctivae Inflammation, Eyelid Inflammation, Redness, Other ENT: negative: Ear Pain, Ear Discharge, Nose Pain, Nose Discharge, Nose Congestion, Mouth Pain, Mouth Swelling, Throat Pain, Throat Swelling, Other Respiratory: negative: Cough, Dry, Shortness of Breath, Hemoptysis, SOB with Excertion, Pleuritic Pain, Sputum, Wheezing Cardiovascular: negative: chest pain, palpitations, orthopnea, paroxysmal nocturnal dyspnea, edema, light headedness, other Gastrointestinal: negative: Nausea, Vomiting, Abdominal Pain, Diarrhea, Constipation, Melena, Hematochezia, Other Genitourinary: negative: Dysuria, Frequency, Incontinence, Hematuria, Retention , Other Musculoskeletal: negative: Neck Pain, Shoulder Pain, Arm Pain, Back Pain, Hand Pain, Leg Pain, Foot Pain, Other Skin: Bruising. negative: Rash, Lesions, [place], Other - Medications/Allergies Allergies/Adverse Reactions: Allergies Allergy/AdvReac Type Severity Reaction Status Date / Time No Known Allergies Allergy Unverified 04/16/17 22:20 Medications: Current Medications Acetaminophen (Tylenol) 650 mg PO Q4H PRN PRN Reason: Headache/Fever or Pain Acetaminophen/Codeine Phosphate (Tylenol #3) 1 tab PO Q4H PRN PRN Reason: Pain Last Admin: 04/28/17 07:33 Dose: 1 tab Hydrocodone Bitart/Acetaminophen ([place] 10/325) 1 tab PO Q4H PRN PRN Reason: Pain 4-6 Last Admin: 04/29/17 06:08 Dose: 1 tab Al Hydroxide/Mg Hydroxide (Maalox) 30 ml PO Q6H PRN PRN Reason: Heartburn or Indigestion Last Admin: 04/21/17 06:10 Dose: 30 ml Ascorbic Acid (Vitamin C) 500 mg PO DAILY [facility] Last Admin: 04/29/17 08:53 Dose: 500 mg Cyanocobalamin (Vitamin B-12) 1,000 mcg PO DAILY [facility] Last Admin: 04/29/17 08:53 Dose: 1,000 mcg Diphenhydramine HCl (Benadryl) 25 mg PO Q6H PRN PRN Reason: Itching & Insomnia Last Admin: 04/29/17 06:10 Dose: 25 mg Enoxaparin Sodium (Lovenox) 40 mg SC 0900 [facility] Last Admin: 04/29/17 08:53 Dose: 40 mg Famotidine (Pepcid) 20 mg PO BID [facility] Last Admin: 04/29/17 08:53 Dose: 20 mg Ferrous Sulfate (Feosol) 325 mg PO BID[facility] Last Admin: 04/29/17 08:53 Dose: 325 mg Folic Acid (Folvite) 1 mg PO DAILY [facility] Last Admin: 04/29/17 08:53 Dose: 1 mg Hydralazine HCl (Apresoline) 10 mg SLOW IVP Q4H PRN PRN Reason: Systolic BP > 180 Indomethacin (Indocin) 100 mg PO BID [facility] Last Admin: 04/29/17 08:53 Dose: 100 mg Iron/Minerals/Multivitamins (Theragran M) 1 tab PO DAILY [facility] Last Admin: 04/29/17 08:53 Dose: 1 tab Levofloxacin (Levaquin) 500 mg PO 0600 [facility] Loperamide HCl (Imodium) 2 mg PO PRN PRN PRN Reason: Diarrhea/Loose Stools Last Admin: 04/22/17 20:59 Dose: 2 mg Magnesium Hydroxide (Milk Of Magnesium) 30 ml PO DAILYPRN PRN PRN Reason: Constipation Miscellaneous Medication (Pharmacy To Dose) 0 each IVPB PRN PRN PRN Reason: [facility] Pharmacy to Dose Morphine Sulfate (Morphine Sulfate) 4 mg IVP Q4H PRN PRN Reason: Severe Pain (7-10) Last Admin: 04/29/17 12:21 Dose: 4 mg Ondansetron HCl (Zofran Odt) 4 mg PO Q6H PRN PRN Reason: Nausea/Vomiting Last Admin: 04/24/17 17:50 Dose: 4 mg Ondansetron HCl (Zofran) 4 mg IVP Q6H PRN PRN Reason: Nausea/Vomiting Last Admin: 04/22/17 20:59 Dose: 4 mg Saccharomyces Boulardii (Florastor) 250 mg PO DAILY [facility] Last Admin: 04/29/17 08:53 Dose: 250 mg Senna (Senokot) 2 tab PO HSPRN PRN PRN Reason: Constipation Sodium Chloride (Flush - Normal Saline) 10 ml IVF Q12HR [facility] Last Admin: 04/29/17 08:59 Dose: Not Given Sodium Chloride (Flush - Normal Saline) 10 ml IVF PRN PRN PRN Reason: Saline Flush Thiamine HCl (Thiamine) 100 mg PO DAILY [facility] Last Admin: 04/29/17 08:53 Dose: 100 mg Zinc Sulfate (Zinc Sulfate) 220 mg PO DAILY [facility] Last Admin: 04/29/17 08:53 Dose: 220 mg
--- NOTE | 2017-04-29 14:29 | PRG ---
DATE OF SERVICE: 04/29/2017 SUBJECTIVE: The patient is feeling well and still waiting for a vacuum device to be procured for dis charge planning. He denies any headaches. No respiratory symptoms or abdominal pain, moderate pain in the foot. OBJECTIVE: VITAL SIGNS: Essentially normal. LUNGS: Clear. HEART: S1 and S2, regular rate. ABDOMEN: Soft. The foot is dressed, but the wounds have been looked through the pictures provided b y the wound care team and it shows marked improvement with fresh red wound base and marked improvemen t in inflammatory changes. LABORATORY DATA: The white cell count down to 16.5, hemoglobin 8.3, platelets 380 and the chemistrie s are not remarkable. Microbiology with strep pneumoniae isolated from all the samples from the foot I&D. As noted previously, the lower extremity MRI showed myositis, but no evidence of osteomyelitis . ASSESSMENT AND DISCUSSION: Right foot cellulitis with pyomyositis, most likely hematogenous secondar y to Streptococcus pneumoniae without evidence of septic arthritis or osteomyelitis. In view of the susceptibility, we will switch him to oral levofloxacin, treat for another 3 weeks and consider disch arge planning. Discontinue the remainder antimicrobials.
--- NOTE | 2017-04-29 14:45 | PRG ---
DATE OF SERVICE: 04/29/2017 SUBJECTIVE: Mr. Madrid is 11 days status post incision and drainage, irrigation and debridement of multiple abscesses on his right foot. The patient has been receiving IV antibiotics and has tolerate d them well. He has been afebrile during the entire hospital course and his vital signs have remaine d stable. He has been treated with a wound VAC on his foot and ankle since the surgery. His last vi franci signs, temperature 98.8, pulse 92, respiratory rate 20, blood pressure 119/68 and O2 saturation 9 9% on room air. OBJECTIVE: EXTREMITIES: All the incisions on the right foot and ankle are open and there is good granulation ti ssue at the base of the muscles that are visible and the different incisions are healthy appearing. The patient is able to flex and extend his toes and dorsiflex and plantarflex his ankle with almost n o pain. There is a small area in the plantar aspect of the mid foot that has a tiny amount of fluctu ance, but it does appear to communicate with the incision on the medial aspect of the mid foot allowi ng it to drain. No other areas are even suspicious. The right ankle and leg has some swelling, but the swelling has definitely decreased since he was last seen since there are quite a few creases on t he skin and there is no erythema in the right foot. LABORATORY DATA: Today, CBC shows white count of 16.5, hemoglobin 8.3 and hematocrit 26.2. Chemistr ies are normal except for low calcium of 7.7. His last C-reactive protein was 5.93 and it was yester day. His cultures grew out Streptococcus pneumonia sensitive to every antibiotic tested including Le vaquin. ASSESSMENT AND PLAN: I discussed patient's case with Dr. Ramsey today. Dr. Ramsey is going to discont inue all the IV antibiotics and start him on Levaquin 500 mg daily. Case management is working on paulo tong to help get him set up with outpatient wound care with a wound VAC on the right foot and ankle b ecause of where he lives. He may have to do this in [place]. This does not appear that it is g oing to be able to be taken care of until sometime next week. I want to see the patient back in the office after he has been discharged within the first week.
[2017-04-30 04:58] LABS: Anion Gap 7 mmol/L (10-20); BUN (Urea Nitrogen) 10 mg/dL (8.9-20.6); Calc. Creatinine Clearance 119 mL/min (70-130); Calcium 8.1 mg/dL (7.8-10.44); Carbon Dioxide 29 mmol/L (22-29); Chloride 104 mmol/L (98-107); Estimated GFR-MDRD Greater than 90; Glucose 111 mg/dL (70-105); Potassium 4.2 mmol/L (3.5-5.1); Sodium 136 mmol/L (136-145)
[2017-04-30 04:59] LABS: #Basophils 0.1 thou/uL (0.0-0.2); #Eosinphils 0.3 thou/uL (0.0-0.7); #Lymphocytes 2.3 thou/uL (1.20-3.40); #Monocytes 1.6 thou/uL (0.11-0.59); #Neutrophils 9.8 thou/uL (1.40-6.50); %Basophils 0.9 % (0.0-1.0); %Eosinophils 1.8 % (0.0-10.0); %Lymphocytes 16.2 % (21.0-51.0); %Monocytes 11.2 % (0.0-10.0); %Neutrophils 69.9 % (42.0-75.0); Hemoglobin 8.7 g/dL (14.0-18.0); Mean Corpuscular HGB CONC 31.7 g/dL (32.0-36.0); Mean Corpuscular Hemoglobin 31.7 pg (27.0-31.0); Mean Corpuscular Volume 99.8 fl (80.0-94.0); Mean Platelet Volume 6.7 fL (7.4-10.4); Platelet Count 354 thou/uL (130-400); RBC Distribution Width 15.2 % (11.5-14.5); Red Blood Cell (RBC) Count 2.74 mill/uL (4.70-6.10)
[2017-04-30] MEDS: Ferrous Sulfate 325 MG TAB PO SCH ×2 (08:22→17:13)
[2017-04-30] MEDS: Zinc Sulfate 220 MG CAP PO SCH (08:22)
[2017-04-30] MEDS: Multivitamin W/ Minerals 1 TAB PO SCH (08:22)
[2017-04-30] MEDS: Famotidine 20 MG TAB PO SCH ×2 (08:23→21:58)
[2017-04-30] MEDS: Folic Acid 1 MG TAB PO SCH (08:23)
[2017-04-30] MEDS: HYDROcodone/Acetaminophen 10/325 mg Tablet PO PRN ×3 (08:23→21:59)
[2017-04-30] MEDS: Cyanocobalamin (Vitamin B-12) 1,000 MCG TAB PO SCH (08:23)
[2017-04-30] MEDS: Ascorbic Acid 500 mg Chewable Tablet PO SCH (08:24)
[2017-04-30] MEDS: Saccharomyces boulardii 250 MG CAP PO SCH (08:24)
[2017-04-30] MEDS: Enoxaparin Sodium 40 MG/0.4 ML SYRINGE SC SCH (08:24)
[2017-04-30] MEDS: Indomethacin 25 mg Capsule PO SCH ×2 (08:24→21:59)
[2017-04-30] MEDS: diphenhydrAMINE 25 MG CAP PO PRN ×2 (08:28→21:59)
[2017-04-30] MEDS ORDERED: Furosemide 40 MG/4 ML VIAL SLOW IVP SCH (09:00)
--- NOTE | 2017-04-30 13:16 | PDOC.PN ---
- Subjective Encounter Start Date: 04/30/17 Encounter Start Time: 09:30 Patient is seen today, alert and oriented. No other concerns noted. - Objective Resuscitation Status: Resuscitation Status FULL:Full Resuscitation MAR Reviewed: Yes Vital Signs & Weight: Vital Signs (12 hours) Temp Pulse Resp BP Pulse Ox 04/30/17 11:08 97.4 F L 85 16 120/77 98 04/30/17 08:00 98.0 F 104 H 16 04/30/17 07:58 98.0 F 104 H 16 124/77 97 04/30/17 04:00 98.5 F 87 19 106/66 99 Weight Admit Weight 169 lb 15.616 oz Weight 169 lb 15.616 oz I&O: 04/29/17 04/30/17 05/01/17 06:59 06:59 06:59 Intake Total 2200 600 480 Output Total 3635 1000 950 Balance -1435 -400 -470 Result Diagrams: 04/30/17 04:23 04/30/17 04:23 Radiology Reviewed by me: Yes Phys Exam - Physical Examination HEENT: PERRLA, moist MMs Neck: no nodes, no JVD Respiratory: no wheezing, no rales Cardiovascular: RRR, no significant murmur Gastrointestinal: soft, non-tender Musculoskeletal: pulses present, edema present Neurological: non-focal, normal sensation Lymphatic: no nodes Skin: no rash, normal turgor Dx/Plan (1) Cellulitis of right lower limb Code(s): L03.115 - CELLULITIS OF RIGHT LOWER LIMB Status: Acute Comment: changed Abx to Levofloxacin 500mg Po daily, May need outpaitent wound vac, pt has no insurance. Wound vac arrnaged for Symone. (2) Postoperative anemia due to acute blood loss Code(s): D62 - ACUTE POSTHEMORRHAGIC ANEMIA Status: Acute Comment: Continue to monitor stable, now. (3) Sepsis Code(s): A41.9 - SEPSIS, UNSPECIFIED ORGANISM Status: Acute Qualifiers: Sepsis type: sepsis due to unspecified organism Qualified Code(s): A41.9 - Sepsis, unspecified organism Comment: Strep pneumonia sepsis with source from Foot Abscess. Continue Above Abx. Will repat Blood Cultures. (4) Gout Code(s): M10.9 - GOUT, UNSPECIFIED Status: Chronic Qualifiers: Gout site: unspecified site Comment: Continue with indemethacin PRn for giat exacerbation, will start on Allopurinol. (5) Hypoalbuminemia due to protein-calorie malnutrition Code(s): E46 - UNSPECIFIED PROTEIN-CALORIE MALNUTRITION Status: Chronic Comment: and alc abuse - Plan cont current plan of care, plan discussed w/ family, PT/OT, marriage and family social worker, out of bed/ambulate, DVT proph w/lovenox * . - Discharge Day Encounter end time: 10:05 Review of Systems - Review of Systems Constitutional: negative: fever, chills, sweats, weakness, malaise, other Eyes: negative: Pain, Vision Change, Conjunctivae Inflammation, Eyelid Inflammation, Redness, Other ENT: negative: Ear Pain, Ear Discharge, Nose Pain, Nose Discharge, Nose Congestion, Mouth Pain, Mouth Swelling, Throat Pain, Throat Swelling, Other Respiratory: negative: Cough, Dry, Shortness of Breath, Hemoptysis, SOB with Excertion, Pleuritic Pain, Sputum, Wheezing Cardiovascular: negative: chest pain, palpitations, orthopnea, paroxysmal nocturnal dyspnea, edema, light headedness, other Gastrointestinal: negative: Nausea, Vomiting, Abdominal Pain, Diarrhea, Constipation, Melena, Hematochezia, Other Genitourinary: negative: Dysuria, Frequency, Incontinence, Hematuria, Retention , Other Musculoskeletal: Leg Pain, Foot Pain. negative: Neck Pain, Shoulder Pain, Arm Pain, Back Pain, Hand Pain, Other Neurological: negative: Weakness, Numbness, Incoordination, Change in Speech, Confusion, Seizures, Other - Medications/Allergies Allergies/Adverse Reactions: Allergies Allergy/AdvReac Type Severity Reaction Status Date / Time No Known Allergies Allergy Unverified 04/16/17 22:20 Medications: Current Medications Acetaminophen (Tylenol) 650 mg PO Q4H PRN PRN Reason: Headache/Fever or Pain Acetaminophen/Codeine Phosphate (Tylenol #3) 1 tab PO Q4H PRN PRN Reason: Pain Last Admin: 04/28/17 07:33 Dose: 1 tab Hydrocodone Bitart/Acetaminophen ([place] 10/325) 1 tab PO Q4H PRN PRN Reason: Pain 4-6 Last Admin: 04/30/17 08:23 Dose: 1 tab Al Hydroxide/Mg Hydroxide (Maalox) 30 ml PO Q6H PRN PRN Reason: Heartburn or Indigestion Last Admin: 04/21/17 06:10 Dose: 30 ml Ascorbic Acid (Vitamin C) 500 mg PO DAILY [facility] Last Admin: 04/30/17 08:24 Dose: 500 mg Cyanocobalamin (Vitamin B-12) 1,000 mcg PO DAILY [facility] Last Admin: 04/30/17 08:23 Dose: 1,000 mcg Diphenhydramine HCl (Benadryl) 25 mg PO Q6H PRN PRN Reason: Itching & Insomnia Last Admin: 04/30/17 08:28 Dose: 25 mg Enoxaparin Sodium (Lovenox) 40 mg SC 0900 [facility] Last Admin: 04/30/17 08:24 Dose: 40 mg Famotidine (Pepcid) 20 mg PO BID [facility] Last Admin: 04/30/17 08:23 Dose: 20 mg [facility]) [facility] Last Admin: 04/30/17 08:22 Dose: 325 mg Folic Acid (Folvite) 1 mg PO DAILY [facility] Last Admin: 04/30/17 08:23 Dose: 1 mg Hydralazine HCl (Apresoline) 10 mg SLOW IVP Q4H PRN PRN Reason: Systolic BP > 180 Indomethacin (Indocin) 100 mg PO BID [facility] Last Admin: 04/30/17 08:24 Dose: 100 mg Iron/Minerals/Multivitamins (Theragran M) 1 tab PO DAILY [facility] Last Admin: 04/30/17 08:22 Dose: 1 tab Levofloxacin (Levaquin) 500 mg PO 0600 [facility] Last Admin: 04/30/17 06:44 Dose: 500 mg Loperamide HCl (Imodium) 2 mg PO PRN PRN PRN Reason: Diarrhea/Loose Stools Last Admin: 04/22/17 20:59 Dose: 2 mg Magnesium Hydroxide (Milk Of Magnesium) 30 ml PO DAILYPRN PRN PRN Reason: Constipation Morphine Sulfate (Morphine Sulfate) 4 mg IVP Q4H PRN PRN Reason: Severe Pain (7-10) Last Admin: 04/29/17 12:21 Dose: 4 mg Ondansetron HCl (Zofran Odt) 4 mg PO Q6H PRN PRN Reason: Nausea/Vomiting Last Admin: 04/24/17 17:50 Dose: 4 mg Ondansetron HCl (Zofran) 4 mg IVP Q6H PRN PRN Reason: Nausea/Vomiting Last Admin: 04/22/17 20:59 Dose: 4 mg Saccharomyces Boulardii (Florastor) 250 mg PO DAILY [facility] Last Admin: 04/30/17 08:24 Dose: 250 mg Senna (Senokot) 2 tab PO HSPRN PRN PRN Reason: Constipation Sodium Chloride (Flush - Normal Saline) 10 ml IVF Q12HR [facility] Last Admin: 04/30/17 08:31 Dose: Not Given Sodium Chloride (Flush - Normal Saline) 10 ml IVF PRN PRN PRN Reason: Saline Flush Thiamine HCl (Thiamine) 100 mg PO DAILY [facility] Last Admin: 04/30/17 08:22 Dose: 100 mg Zinc Sulfate (Zinc Sulfate) 220 mg PO DAILY [facility] Last Admin: 04/30/17 08:22 Dose: 220 mg
[2017-05-01 04:18] LABS: #Basophils 0.1 thou/uL (0.0-0.2); #Eosinphils 0.4 thou/uL (0.0-0.7); #Lymphocytes 2.6 thou/uL (1.20-3.40); #Monocytes 1.4 thou/uL (0.11-0.59); #Neutrophils 9.2 thou/uL (1.40-6.50); %Basophils 0.9 % (0.0-1.0); %Eosinophils 2.8 % (0.0-10.0); %Lymphocytes 18.9 % (21.0-51.0); %Monocytes 10.3 % (0.0-10.0); %Neutrophils 67.1 % (42.0-75.0); Hemoglobin 8.3 g/dL (14.0-18.0); Mean Corpuscular HGB CONC 32.7 g/dL (32.0-36.0); Mean Corpuscular Hemoglobin 31.8 pg (27.0-31.0); Mean Corpuscular Volume 97.4 fl (80.0-94.0); Mean Platelet Volume 6.5 fL (7.4-10.4); Platelet Count 337 thou/uL (130-400); RBC Distribution Width 14.9 % (11.5-14.5); White Blood Cell (WBC) Count 13.8 thou/uL (4.8-10.8)
[2017-05-01 04:35] LABS: Anion Gap 10 mmol/L (10-20); BUN (Urea Nitrogen) 8 mg/dL (8.9-20.6); Calc. Creatinine Clearance 106 mL/min (70-130); Calcium 7.9 mg/dL (7.8-10.44); Carbon Dioxide 27 mmol/L (22-29); Chloride 102 mmol/L (98-107); Estimated GFR-MDRD 87; Glucose 92 mg/dL (70-105); Potassium 4.2 mmol/L (3.5-5.1); Sodium 135 mmol/L (136-145)
[2017-05-01] MEDS: HYDROcodone/Acetaminophen 10/325 mg Tablet PO PRN ×3 (06:32→21:24)
[2017-05-01] MEDS: Saccharomyces boulardii 250 MG CAP PO SCH (08:26)
[2017-05-01] MEDS: Zinc Sulfate 220 MG CAP PO SCH (08:26)
[2017-05-01] MEDS: Enoxaparin Sodium 40 MG/0.4 ML SYRINGE SC SCH (08:26)
[2017-05-01] MEDS: Folic Acid 1 MG TAB PO SCH (08:26)
[2017-05-01] MEDS: Indomethacin 25 mg Capsule PO SCH ×2 (08:26→21:48)
[2017-05-01] MEDS: Multivitamin W/ Minerals 1 TAB PO SCH (08:26)
[2017-05-01] MEDS: Cyanocobalamin (Vitamin B-12) 1,000 MCG TAB PO SCH (08:26)
[2017-05-01] MEDS: Ferrous Sulfate 325 MG TAB PO SCH ×2 (08:27→16:56)
[2017-05-01] MEDS: Ascorbic Acid 500 mg Chewable Tablet PO SCH (08:27)
[2017-05-01] MEDS: Famotidine 20 MG TAB PO SCH ×2 (08:27→21:24)
--- NOTE | 2017-05-01 15:08 | PDOC.PN ---
- Subjective Encounter Start Date: 05/01/17 Encounter Start Time: 13:00 Beto is seen today, alert and oriented. No other Concern snoted. Duiscussed with ID, plan to discharge ones Wound vac is ready on tuesday. - Objective Resuscitation Status: Resuscitation Status FULL:Full Resuscitation MAR Reviewed: Yes Vital Signs & Weight: Vital Signs (12 hours) Temp Pulse Resp BP Pulse Ox 05/01/17 11:50 98.3 F 77 20 121/72 99 05/01/17 08:00 97.9 F 79 20 05/01/17 07:50 98.0 F 83 14 116/69 99 05/01/17 04:00 97.9 F 79 20 115/71 98 Weight Admit Weight 169 lb 15.616 oz Weight 169 lb 15.616 oz I&O: 04/30/17 05/01/17 05/02/17 06:59 06:59 06:59 Intake Total 600 2100 Output Total 1000 2100 Balance -400 0 Result Diagrams: 05/01/17 03:50 05/01/17 03:50 Radiology Reviewed by me: Yes Phys Exam - Physical Examination HEENT: PERRLA, moist MMs Neck: no nodes, no JVD Respiratory: no wheezing, no rales Cardiovascular: RRR, no significant murmur Gastrointestinal: soft, non-tender Musculoskeletal: pulses present, edema present Neurological: non-focal, normal sensation Dx/Plan (1) Cellulitis of right lower limb Code(s): L03.115 - CELLULITIS OF RIGHT LOWER LIMB Status: Acute Comment: changed Abx to Levofloxacin 500mg Po daily, May need outpaitent wound vac, pt has no insurance. Wound vac arrnaged for Symone. (2) Postoperative anemia due to acute blood loss Code(s): D62 - ACUTE POSTHEMORRHAGIC ANEMIA Status: Acute Comment: Continue to monitor stable, now. (3) Sepsis Code(s): A41.9 - SEPSIS, UNSPECIFIED ORGANISM Status: Acute Qualifiers: Sepsis type: sepsis due to unspecified organism Qualified Code(s): A41.9 - Sepsis, unspecified organism Comment: Strep pneumonia sepsis with source from Foot Abscess. Continue Above Abx. Will repat Blood Cultures. (4) Gout Code(s): M10.9 - GOUT, UNSPECIFIED Status: Chronic Qualifiers: Gout site: unspecified site Comment: Continue with indemethacin PRn for giat exacerbation, will start on Allopurinol. (5) Hypoalbuminemia due to protein-calorie malnutrition Code(s): E46 - UNSPECIFIED PROTEIN-CALORIE MALNUTRITION Status: Chronic Comment: and alc abuse - Plan cont current plan of care, james catheter, continue antibiotics, PT/OT, respiratory therapy, incentive spirometry, DVT proph w/lovenox * . - Discharge Day Encounter end time: 13:35 Review of Systems - Review of Systems Constitutional: negative: fever, chills, sweats, weakness, malaise, other Eyes: negative: Pain, Vision Change, Conjunctivae Inflammation, Eyelid Inflammation, Redness, Other ENT: negative: Ear Pain, Ear Discharge, Nose Pain, Nose Discharge, Nose Congestion, Mouth Pain, Mouth Swelling, Throat Pain, Throat Swelling, Other Respiratory: negative: Cough, Dry, Shortness of Breath, Hemoptysis, SOB with Excertion, Pleuritic Pain, Sputum, Wheezing Cardiovascular: negative: chest pain, palpitations, orthopnea, paroxysmal nocturnal dyspnea, edema, light headedness, other Gastrointestinal: negative: Nausea, Vomiting, Abdominal Pain, Diarrhea, Constipation, Melena, Hematochezia, Other Musculoskeletal: negative: Neck Pain, Shoulder Pain, Arm Pain, Back Pain, Hand Pain, Leg Pain, Foot Pain, Other - Medications/Allergies Allergies/Adverse Reactions: Allergies Allergy/AdvReac Type Severity Reaction Status Date / Time No Known Allergies Allergy Unverified 04/16/17 22:20 Medications: Current Medications Acetaminophen (Tylenol) 650 mg PO Q4H PRN PRN Reason: Headache/Fever or Pain Acetaminophen/Codeine Phosphate (Tylenol #3) 1 tab PO Q4H PRN PRN Reason: Pain Last Admin: 04/28/17 07:33 Dose: 1 tab Hydrocodone Bitart/Acetaminophen ([place] 10/325) 1 tab PO Q4H PRN PRN Reason: Pain 4-6 Last Admin: 05/01/17 06:32 Dose: 1 tab Al Hydroxide/Mg Hydroxide (Maalox) 30 ml PO Q6H PRN PRN Reason: Heartburn or Indigestion Last Admin: 04/21/17 06:10 Dose: 30 ml Ascorbic Acid (Vitamin C) 500 mg PO DAILY [facility] Last Admin: 05/01/17 08:27 Dose: 500 mg Cyanocobalamin (Vitamin B-12) 1,000 mcg PO DAILY REPLACED BY [facility] Last Admin: 05/01/17 08:26 Dose: 1,000 mcg Diphenhydramine HCl (Benadryl) 25 mg PO Q6H PRN PRN Reason: Itching & Insomnia Last Admin: 04/30/17 21:59 Dose: 25 mg Enoxaparin Sodium (Lovenox) 40 mg SC 0900 REPLACED BY [facility] Last Admin: 05/01/17 08:26 Dose: 40 mg Famotidine (Pepcid) 20 mg PO BID REPLACED BY [facility] Last Admin: 05/01/17 08:27 Dose: 20 mg [facility]ous [facility] ([facility]) [facility] Last Admin: 05/01/17 08:27 Dose: 325 mg Folic Acid (Folvite) 1 mg PO DAILY REPLACED BY [facility] Last Admin: 05/01/17 08:26 Dose: 1 mg Hydralazine HCl (Apresoline) 10 mg SLOW IVP Q4H PRN PRN Reason: Systolic BP > 180 Indomethacin (Indocin) 100 mg PO BID REPLACED BY [facility] Last Admin: 05/01/17 08:26 Dose: 100 mg Iron/Minerals/Multivitamins (Theragran M) 1 tab PO DAILY REPLACED BY [facility] Last Admin: 05/01/17 08:26 Dose: 1 tab Levofloxacin (Levaquin) 500 mg PO 0600 REPLACED BY [facility] Last Admin: 05/01/17 06:32 Dose: 500 mg Loperamide HCl (Imodium) 2 mg PO PRN PRN PRN Reason: Diarrhea/Loose Stools Last Admin: 04/22/17 20:59 Dose: 2 mg Magnesium Hydroxide (Milk Of Magnesium) 30 ml PO DAILYPRN PRN PRN Reason: Constipation Morphine Sulfate (Morphine Sulfate) 4 mg IVP Q4H PRN PRN Reason: Severe Pain (7-10) Last Admin: 04/29/17 12:21 Dose: 4 mg Ondansetron HCl (Zofran Odt) 4 mg PO Q6H PRN PRN Reason: Nausea/Vomiting Last Admin: 04/24/17 17:50 Dose: 4 mg Ondansetron HCl (Zofran) 4 mg IVP Q6H PRN PRN Reason: Nausea/Vomiting Last Admin: 04/22/17 20:59 Dose: 4 mg Saccharomyces Boulardii (Florastor) 250 mg PO DAILY REPLACED BY [facility] Last Admin: 05/01/17 08:26 Dose: 250 mg Senna (Senokot) 2 tab PO HSPRN PRN PRN Reason: Constipation Sodium Chloride (Flush - Normal Saline) 10 ml IVF Q12HR REPLACED BY [facility] Last Admin: 05/01/17 08:30 Dose: Not Given Sodium Chloride (Flush - Normal Saline) 10 ml IVF PRN PRN PRN Reason: Saline Flush Thiamine HCl (Thiamine) 100 mg PO DAILY REPLACED BY [facility] Last Admin: 05/01/17 08:26 Dose: 100 mg Zinc Sulfate (Zinc Sulfate) 220 mg PO DAILY REPLACED BY [facility] Last Admin: 05/01/17 08:26 Dose: 220 mg
[2017-05-01] MEDS: diphenhydrAMINE 25 MG CAP PO PRN (21:24)
[2017-05-02 05:50] LABS: #Basophils 0.1 thou/uL (0.0-0.2); #Eosinphils 0.4 thou/uL (0.0-0.7); #Lymphocytes 2.3 thou/uL (1.20-3.40); #Monocytes 1.2 thou/uL (0.11-0.59); #Neutrophils 8.3 thou/uL (1.40-6.50); %Eosinophils 3.1 % (0.0-10.0); %Lymphocytes 18.6 % (21.0-51.0); %Monocytes 9.5 % (0.0-10.0); %Neutrophils 67.8 % (42.0-75.0); Mean Corpuscular HGB CONC 32.9 g/dL (32.0-36.0); Mean Corpuscular Hemoglobin 32.2 pg (27.0-31.0); Mean Corpuscular Volume 98.1 fl (80.0-94.0); Mean Platelet Volume 6.3 fL (7.4-10.4); Platelet Count 327 thou/uL (130-400); RBC Distribution Width 14.8 % (11.5-14.5); Red Blood Cell (RBC) Count 2.78 mill/uL (4.70-6.10); White Blood Cell (WBC) Count 12.2 thou/uL (4.8-10.8)
[2017-05-02 05:58] LABS: Anion Gap 8 mmol/L (10-20); BUN (Urea Nitrogen) 6 mg/dL (8.9-20.6); Calc. Creatinine Clearance 104 mL/min (70-130); Calcium 8.1 mg/dL (7.8-10.44); Carbon Dioxide 29 mmol/L (22-29); Chloride 104 mmol/L (98-107); Estimated GFR-MDRD 85; Glucose 86 mg/dL (70-105); Potassium 4.1 mmol/L (3.5-5.1); Sodium 137 mmol/L (136-145)
[2017-05-02] MEDS: HYDROcodone/Acetaminophen 10/325 mg Tablet PO PRN ×2 (06:20→21:36)
[2017-05-02] MEDS: Saccharomyces boulardii 250 MG CAP PO SCH (09:27)
[2017-05-02] MEDS: Cyanocobalamin (Vitamin B-12) 1,000 MCG TAB PO SCH (09:27)
[2017-05-02] MEDS: Multivitamin W/ Minerals 1 TAB PO SCH (09:28)
[2017-05-02] MEDS: Ascorbic Acid 500 mg Chewable Tablet PO SCH (09:28)
[2017-05-02] MEDS: Famotidine 20 MG TAB PO SCH ×2 (09:28→21:37)
[2017-05-02] MEDS: Zinc Sulfate 220 MG CAP PO SCH (09:28)
[2017-05-02] MEDS: Ferrous Sulfate 325 MG TAB PO SCH ×2 (09:28→18:22)
[2017-05-02] MEDS: Indomethacin 25 mg Capsule PO SCH ×2 (09:28→21:36)
[2017-05-02] MEDS: Folic Acid 1 MG TAB PO SCH (09:28)
[2017-05-02] MEDS: Enoxaparin Sodium 40 MG/0.4 ML SYRINGE SC SCH (09:33)
--- NOTE | 2017-05-02 12:51 | PDOC.PN ---
- Subjective Encounter Start Date: 05/02/17 Encounter Start Time: 09:00 Patient seen today getting his Wound vac changed. Improving wound noted. - Objective Resuscitation Status: Resuscitation Status FULL:Full Resuscitation MAR Reviewed: Yes Vital Signs & Weight: Vital Signs (12 hours) Temp Pulse Resp BP Pulse Ox 05/02/17 11:31 98.3 F 92 18 130/69 99 05/02/17 08:00 98.4 F 72 16 05/02/17 07:35 98.4 F 72 16 112/65 98 05/02/17 05:20 98.4 F 83 16 118/73 98 Weight Admit Weight 169 lb 15.616 oz Weight 169 lb 15.616 oz I&O: 05/01/17 05/02/17 05/03/17 06:59 06:59 06:59 Intake Total 2100 1520 Output Total 2100 1550 Balance 0 -30 Result Diagrams: 05/02/17 05:35 05/02/17 05:35 Phys Exam - Physical Examination HEENT: PERRLA, moist MMs Neck: no nodes, no JVD Respiratory: no wheezing, no rales Cardiovascular: RRR, no significant murmur Gastrointestinal: soft, non-tender Musculoskeletal: no edema, pulses present Neurological: non-focal, normal sensation Lymphatic: no nodes Psychiatric: normal affect, A&O x 3 Dx/Plan (1) Cellulitis of right lower limb Code(s): L03.115 - CELLULITIS OF RIGHT LOWER LIMB Status: Acute Comment: changed Abx to Levofloxacin 500mg Po daily, May need outpaitent wound vac, pt has no insurance. Wound vac arrnaged for Symone. (2) Postoperative anemia due to acute blood loss Code(s): D62 - ACUTE POSTHEMORRHAGIC ANEMIA Status: Acute Comment: Continue to monitor stable, now. (3) Sepsis Code(s): A41.9 - SEPSIS, UNSPECIFIED ORGANISM Status: Acute Qualifiers: Sepsis type: sepsis due to unspecified organism Qualified Code(s): A41.9 - Sepsis, unspecified organism Comment: Strep pneumonia sepsis with source from Foot Abscess. Continue Above Abx. Will repat Blood Cultures. (4) Gout Code(s): M10.9 - GOUT, UNSPECIFIED Status: Chronic Qualifiers: Gout site: unspecified site Comment: Continue with indemethacin PRn for giat exacerbation, will start on Allopurinol. (5) Hypoalbuminemia due to protein-calorie malnutrition Code(s): E46 - UNSPECIFIED PROTEIN-CALORIE MALNUTRITION Status: Chronic Comment: and alc abuse - Plan cont current plan of care, continue antibiotics, PT/OT, certified social workers in health care, DVT proph w/lovenox * . - Discharge Day Encounter end time: 09:30 Review of Systems - Review of Systems Eyes: negative: Pain, Vision Change, Conjunctivae Inflammation, Eyelid Inflammation, Redness, Other ENT: negative: Ear Pain, Ear Discharge, Nose Pain, Nose Discharge, Nose Congestion, Mouth Pain, Mouth Swelling, Throat Pain, Throat Swelling, Other Respiratory: negative: Cough, Dry, Shortness of Breath, Hemoptysis, SOB with Excertion, Pleuritic Pain, Sputum, Wheezing Cardiovascular: negative: chest pain, palpitations, orthopnea, paroxysmal nocturnal dyspnea, edema, light headedness, other Gastrointestinal: negative: Nausea, Vomiting, Abdominal Pain, Diarrhea, Constipation, Melena, Hematochezia, Other Musculoskeletal: Leg Pain. negative: Neck Pain, Shoulder Pain, Arm Pain, Back Pain, Hand Pain, Foot Pain, Other - Medications/Allergies Allergies/Adverse Reactions: Allergies Allergy/AdvReac Type Severity Reaction Status Date / Time No Known Allergies Allergy Unverified 04/16/17 22:20 Medications: Current Medications Acetaminophen (Tylenol) 650 mg PO Q4H PRN PRN Reason: Headache/Fever or Pain Acetaminophen/Codeine Phosphate (Tylenol #3) 1 tab PO Q4H PRN PRN Reason: Pain Last Admin: 04/28/17 07:33 Dose: 1 tab Hydrocodone Bitart/Acetaminophen ([place] 10/325) 1 tab PO Q4H PRN PRN Reason: Pain 4-6 Last Admin: 05/02/17 06:20 Dose: 1 tab Al Hydroxide/Mg Hydroxide (Maalox) 30 ml PO Q6H PRN PRN Reason: Heartburn or Indigestion Last Admin: 04/21/17 06:10 Dose: 30 ml Ascorbic Acid (Vitamin C) 500 mg PO DAILY [facility] Last Admin: 05/02/17 09:28 Dose: 500 mg Cyanocobalamin (Vitamin B-12) 1,000 mcg PO DAILY [facility] Last Admin: 05/02/17 09:27 Dose: 1,000 mcg Diphenhydramine HCl (Benadryl) 25 mg PO Q6H PRN PRN Reason: Itching & Insomnia Last Admin: 05/01/17 21:24 Dose: 25 mg Enoxaparin Sodium (Lovenox) 40 mg SC 0900 [facility] Last Admin: 05/02/17 09:33 Dose: 40 mg Famotidine (Pepcid) 20 mg PO BID [facility] Last Admin: 05/02/17 09:28 Dose: 20 mg Ferrous Sulfate (Feosol) 325 mg PO BID[facility] Last Admin: 05/02/17 09:28 Dose: 325 mg Folic Acid (Folvite) 1 mg PO DAILY [facility] Last Admin: 05/02/17 09:28 Dose: 1 mg Hydralazine HCl (Apresoline) 10 mg SLOW IVP Q4H PRN PRN Reason: Systolic BP > 180 Indomethacin (Indocin) 100 mg PO BID [facility] Last Admin: 05/02/17 09:28 Dose: 100 mg Iron/Minerals/Multivitamins (Theragran M) 1 tab PO DAILY [facility] Last Admin: 05/02/17 09:28 Dose: 1 tab Levofloxacin (Levaquin) 500 mg PO 0600 [facility] Last Admin: 05/02/17 07:43 Dose: 500 mg Loperamide HCl (Imodium) 2 mg PO PRN PRN PRN Reason: Diarrhea/Loose Stools Last Admin: 04/22/17 20:59 Dose: 2 mg Magnesium Hydroxide (Milk Of Magnesium) 30 ml PO DAILYPRN PRN PRN Reason: Constipation Morphine Sulfate (Morphine Sulfate) 4 mg IVP Q4H PRN PRN Reason: Severe Pain (7-10) Last Admin: 05/02/17 12:03 Dose: 4 mg Ondansetron HCl (Zofran Odt) 4 mg PO Q6H PRN PRN Reason: Nausea/Vomiting Last Admin: 04/24/17 17:50 Dose: 4 mg Ondansetron HCl (Zofran) 4 mg IVP Q6H PRN PRN Reason: Nausea/Vomiting Last Admin: 04/22/17 20:59 Dose: 4 mg Saccharomyces Boulardii (Florastor) 250 mg PO DAILY [facility] Last Admin: 05/02/17 09:27 Dose: 250 mg Senna (Senokot) 2 tab PO HSPRN PRN PRN Reason: Constipation Sodium Chloride (Flush - Normal Saline) 10 ml IVF Q12HR [facility] Last Admin: 05/02/17 09:33 Dose: 10 ml Sodium Chloride (Flush - Normal Saline) 10 ml IVF PRN PRN PRN Reason: Saline Flush Thiamine HCl (Thiamine) 100 mg PO DAILY [facility] Last Admin: 05/02/17 09:28 Dose: 100 mg Zinc Sulfate (Zinc Sulfate) 220 mg PO DAILY [facility] Last Admin: 05/02/17 09:28 Dose: 220 mg
[2017-05-02] MEDS: diphenhydrAMINE 25 MG CAP PO PRN (21:36)
[2017-05-03 04:45] LABS: #Basophils 0.1 thou/uL (0.0-0.2); #Eosinphils 0.4 thou/uL (0.0-0.7); #Lymphocytes 2.6 thou/uL (1.20-3.40); #Monocytes 1.5 thou/uL (0.11-0.59); #Neutrophils 8.1 thou/uL (1.40-6.50); %Basophils 0.8 % (0.0-1.0); %Eosinophils 2.9 % (0.0-10.0); %Lymphocytes 20.5 % (21.0-51.0); %Monocytes 11.8 % (0.0-10.0); Hemoglobin 8.6 g/dL (14.0-18.0); Mean Corpuscular HGB CONC 31.2 g/dL (32.0-36.0); Mean Corpuscular Hemoglobin 30.2 pg (27.0-31.0); Mean Corpuscular Volume 96.9 fl (80.0-94.0); Mean Platelet Volume 6.3 fL (7.4-10.4); Platelet Count 302 thou/uL (130-400); RBC Distribution Width 14.5 % (11.5-14.5); Red Blood Cell (RBC) Count 2.83 mill/uL (4.70-6.10); White Blood Cell (WBC) Count 12.7 thou/uL (4.8-10.8)
[2017-05-03 05:09] LABS: Anion Gap 9 mmol/L (10-20); BUN (Urea Nitrogen) 6 mg/dL (8.9-20.6); Calc. Creatinine Clearance 111 mL/min (70-130); Calcium 7.9 mg/dL (7.8-10.44); Carbon Dioxide 27 mmol/L (22-29); Chloride 103 mmol/L (98-107); Estimated GFR-MDRD Greater than 90; Glucose 100 mg/dL (70-105); Potassium 3.8 mmol/L (3.5-5.1); Sodium 135 mmol/L (136-145)
[2017-05-03] MEDS: HYDROcodone/Acetaminophen 10/325 mg Tablet PO PRN (06:09)
[2017-05-03] MEDS: Saccharomyces boulardii 250 MG CAP PO SCH (08:55)
[2017-05-03] MEDS: Ferrous Sulfate 325 MG TAB PO SCH (08:55)
[2017-05-03] MEDS: Folic Acid 1 MG TAB PO SCH (08:56)
[2017-05-03] MEDS: Indomethacin 25 mg Capsule PO SCH (08:56)
[2017-05-03] MEDS: Enoxaparin Sodium 40 MG/0.4 ML SYRINGE SC SCH (08:56)
[2017-05-03] MEDS: Zinc Sulfate 220 MG CAP PO SCH (08:56)
[2017-05-03] MEDS: Famotidine 20 MG TAB PO SCH (08:56)
[2017-05-03] MEDS: Cyanocobalamin (Vitamin B-12) 1,000 MCG TAB PO SCH (08:56)
[2017-05-03] MEDS: Ascorbic Acid 500 mg Chewable Tablet PO SCH (08:56)
[2017-05-03] MEDS: Multivitamin W/ Minerals 1 TAB PO SCH (08:56)
--- NOTE | 2017-05-03 11:35 | DIS ---
DATE OF ADMISSION: 04/17/2017 DATE OF DISCHARGE: 05/03/2017 DISCHARGE DIAGNOSES: 1. Right foot abscess with subsequent cellulitis of the right lower extremity. 2. Streptococcal organism causing abscess and cellulitis. 3. Sepsis, resolved. 4. Alcohol abuse. 5. Tobacco abuse. 6. Postoperative anemia from acute blood loss, status post incision and drainage of the right foot abscess. BRIEF SUMMARY OF HOSPITAL COURSE: This is a 51-year-old male who initially presented with a right foot infection of approximately 15 days that started from the heel with progressive extension. Please see the original history and physical for full details surrounding admission. The first day post- hospitalization, the patient underwent an incision and drainage with irrigation and debridement of the abscess of the right foot and ankle. He subsequently had a wound VAC placed as well. At the time of discharge, the patient has been transitioned from IV antibiotics to an oral regimen. He will need to follow up closely with Wound Care as well. He was placed on wound VACs while he has been inpatient over the last 2 weeks status post incision and drainage. The patient was also seen by Infectious Disease for evaluation of his abscess with pyomyositis. He had no subsequent septic arthritis or osteomyelitis and the culprit organism is felt to be Streptococcus pneumoniae. He has been changed over to oral Levaquin and given 2 further weeks of oral antibiotics to complete a 3 week course of oral antibiotics. The patient met criteria for sepsis on admission, at the time of discharge has been resolved. He has had a slow to resolve leukocytosis which is progressively down trending at the time of discharge. He had some postoperative anemia felt to be secondary to acute blood loss, which has not required PRBC transfusion. The patient has remained hemodynamically stable and will be continued to be monitored on an outpatient basis. The patient has been counseled regarding tobacco and alcohol cessation as well. Remaining chronic medical issues were stable during hospitalization. CONSULTATIONS: 1. Surgery, Dr. Sharif 2. Infectious Diseases Dr. Ramsey 3. Wound care. 4. Physical therapy. 5. Case management. Please see the EMR for full details. The patient has been discharged on over- the-counter regimen including multivitamin, thiamine, folic acid. The patient has been given prescription for Levaquin 2 weeks for a complete 3-week oral regimen which when combined with his IV inpatient regimen as a 4-week complete course of antibiotics. DISCHARGE AND FOLLOWUP INSTRUCTIONS: The patient is being picked up by his employer. His employer states that he will help coordinate rides for the patient to his appointments and wound care visits. The patient is able to complete teach back in regards to continued antibiotic use. PATIENT CONDITION AT TIME OF DISCHARGE: VITAL SIGNS: Stable. Temperature 98.2, pulse of 91, respirations 14, satting 98% better on room air, blood pressure 114/66. GENERAL: The patient is awake, alert, appropriate, in no acute distress, lying in the hospital bed. HEENT: Moist mucous membranes. Equal ocular motions are intact. Normocephalic , atraumatic. CARDIOVASCULAR: S1, S2. EXTREMITIES: Pulses 2+ bilateral upper extremities, 1+ pitting pedal edema on the right lower extremity, no pitting pedal edema on the left lower extremity. Compared to prior records this is grossly unchanged. This was also endorsed by the patient as well. RESPIRATORY: Clear to auscultation. No wheezes, rales or rhonchi, reasonable air movement. ABDOMEN: Positive bowel sounds. Soft, nontender to palpation. MUSCULOSKELETAL: Moving all 4 extremities. SIGNIFICANT LABORATORY AND IMAGIN05/03/2017 - WBC 12.7, hemoglobin 8.6, hematocrit 27.4, platelets 302. Sodium 135, potassium 3.8, chloride 103, bicarbonate 27, BUN 6, creatinine 0.88, glucose 100, calcium 7.9. 04/17/2017 - MRI of the lower extremity. Impression: "Diffuse subcutaneous edema changes compatible with cellulitis changes. No signs of any localized fluid collection to suggest any type of abscess. Diffuse myositis changes involving all of the compartment. The most worrisome areas are within the anterior lateral compartment involving the extensor hallucis longus muscle which shows bulging, but no iggy herniation through the fascia. The most worrisome areas within the deep posterior compartment where there are findings that would suggest any early myonecrosis change of the proximal posterior tibialis muscles. These findings were discussed with Dr. Sharif." Thank you for asking me to care for the patient. Greater than 30 minutes spent coordinating discharge for the patient. EJ
[2017-05-03 13:06] VITALS: BP 136/79; TEMP 98.1
== END 2017-05-03 16:58 | disposition home or self-care (01) | DRG 854 ==
LOC: ERS 20:54 → SURG A 04-17 01:48
PROVIDERS: ADMIT Internal Medicine; ATTEND Internal Medicine
PROC: 0MBQ0ZZ Excision of Right Ankle Bursa and Ligament, Open Approach (ICD-10-PCS; principal; 2017-04-18)
PROC: 0L9V0ZX Drainage of Right Foot Tendon, Open Approach, Diagnostic (ICD-10-PCS; 2017-04-18)
PROC: 0J9Q0ZX Drainage of Right Foot Subcutaneous Tissue and Fascia, Open Approach, Diagnostic (ICD-10-PCS; 2017-04-18)
DX: A40.3 Sepsis due to Streptococcus pneumoniae (principal); M60.073 Infective myositis, right foot; E46 Unspecified protein-calorie malnutrition; L02.415 Cutaneous abscess of right lower limb; E88.09 Other disorders of plasma-protein metabolism, not elsewhere classified; D62 Acute posthemorrhagic anemia; L03.115 Cellulitis of right lower limb; L02.611 Cutaneous abscess of right foot; M10.9 Gout, unspecified; F17.210 Nicotine dependence, cigarettes, uncomplicated; F12.11 Cannabis abuse, in remission; F10.20 Alcohol dependence, uncomplicated; Z68.29 Body mass index [BMI] 29.0-29.9, adult
CPT/HCPCS: 36415; 80048; 80053; 80202; 81003; 82550; 83605; 83735; 84145; 84550; 85025; 85610; 85652; 85730; 86140; 86780; 86803; 87070; 87077; 87186; 87205; 87389; 96361; 96365; 96367; 99406; J2270; A4216; A9579; G8978-GP-CL; G8979-GP-CK; G8987-GO-CJ; G8988-GO-CI; J0696; J1650; J1885; J1956; J2405; J2543; J2704; J3010; J3370; J3490; J7050; J7506; Q0162

== ENCOUNTER 2017-05-05 13:27 | Outpatient (CLI) | payer SELFPAY | END 2017-05-05 13:28 | disposition home or self-care (01) | LOC: WCC 13:27 | PROVIDERS: ATTEND Family Medicine | DX: T81.89XD Other complications of procedures, not elsewhere classified, subsequent encounter (principal) | CPT/HCPCS: 97605 ==

== ENCOUNTER 2017-05-09 13:14 | Outpatient (CLI) | payer SELFPAY ==
[~2017-05-09 13:14] MED LIST changes: -ISOVUE-370 76%-LOCM 1 ML ONE; +Lidocaine 4% Topical Sol 50 ML BOT ONE; +Sodium Chloride 0.9% 15 ML NEB ONE
== END 2017-05-09 13:15 | disposition home or self-care (01) ==
LOC: WCC 13:14
PROVIDERS: ATTEND Family Medicine
DX: T81.89XD Other complications of procedures, not elsewhere classified, subsequent encounter (principal)
CPT/HCPCS: 97605; A4218; J2001

== ENCOUNTER 2017-05-12 14:09 | Outpatient (CLI) | payer SELFPAY ==
--- NOTE | 2017-05-12 17:47 | HP ---
DATE OF SERVICE: 05/12/2017 HISTORY OF PRESENT ILLNESS: Mr. Jerad Madrid is a 51-year-old gentleman, who presents to the Wound Center for evaluation of multiple wounds of the right foot subsequent to incision and drainage /irrigation and debridement of abscesses of the right foot and ankle. The patient underwent the prec eding procedure on 04/18/[address] Antonio Sharif. Negative pressure therapy was initiated intraoper atively and upon discharge from [facility], the patient was referred to the [facility] for assistance with dressing changes of the wound VAC. During the patient's hospital stay , Mr. Eliel Madrid was seen in consultation by Infectious Diseases, who assessed the patient to hav e right foot cellulitis with pyomyositis. The patient was discharged to home on Levaquin. PAST MEDICAL HISTORY: Gout. PAST SURGICAL HISTORY: Incision and drainage/irrigation and debridement of abscesses of the right fo ot and ankle on 04/18/2017. MEDICATIONS: The patient states he is only taking p.o. pain medication. ALLERGIES: No known diagnosed allergies. SOCIAL HISTORY: Significant for tobacco and ETOH use. FAMILY HISTORY: Noncontributory. PHYSICAL EXAMINATION: VITAL SIGNS: Temperature 98.0, pulse 97, respirations 18, blood pressure 118/70. GENERAL: A 51-year-old gentleman sitting on chair in examination room in no acute distress. HEENT: Normocephalic, atraumatic. NECK: No nuchal rigidity. CHEST: Clear to auscultation. CARDIAC: Regular rate and rhythm. ABDOMEN: Soft. EXTREMITIES: Multiple wounds of the right foot and ankle are present. No purulent drainage is assoc iated with any of the wounds. No cellulitis of the right foot is appreciated. No maceration of the skin of the periwound of any of the wounds is noted. No significant edema of the right foot is appre ciated on exam today. NEUROLOGIC: Grossly nonfocal. ASSESSMENT AND PLAN: 1. Multiple wounds of right foot and ankle subsequent to incision and drainage/irrigation and debrid ement of abscesses of the right foot and ankle on 04/18/[address] Antonio Sharif. Negative pressure therapy was initiated intraoperatively and will be continued with dressing changes of the wound VAC h ere in the Wound Center. I will see Mr. Eliel Madrid in 2 weeks. The patient was discharged to ho me on p.o. Levaquin. 2. Gout. 3. Right foot cellulitis with pyomyositis.
== END 2017-05-12 14:10 | disposition home or self-care (01) ==
LOC: WCC 14:09
PROVIDERS: ATTEND Family Medicine
DX: T81.89XD Other complications of procedures, not elsewhere classified, subsequent encounter (principal); M10.9 Gout, unspecified; L03.115 Cellulitis of right lower limb; M60.073 Infective myositis, right foot
CPT/HCPCS: 97602; 99204; G0463

== ENCOUNTER 2017-05-16 08:49 | Outpatient (CLI) | payer SELFPAY ==
[~2017-05-16 08:49] MED LIST changes: -Lidocaine 4% Topical Sol 50 ML BOT ONE
== END 2017-05-16 08:50 | disposition home or self-care (01) ==
LOC: WCC 08:49
PROVIDERS: ATTEND Family Medicine
DX: T81.89XD Other complications of procedures, not elsewhere classified, subsequent encounter (principal)
CPT/HCPCS: 97605; A4218

== ENCOUNTER 2017-05-19 12:04 | Outpatient (CLI) | payer SELFPAY ==
[2017-05-19] MEDS ORDERED: Lidocaine 4% Topical Sol 50 ML BOT ONE (16:17)
[2017-05-19] MEDS ORDERED: Sodium Chloride 0.9% 15 ML NEB ONE (16:17)
== END 2017-05-19 12:05 | disposition home or self-care (01) ==
LOC: WCC 12:04
PROVIDERS: ATTEND Family Medicine
DX: T81.89XD Other complications of procedures, not elsewhere classified, subsequent encounter (principal)
CPT/HCPCS: 97606; A4218; J2001

== ENCOUNTER 2017-05-23 14:39 | Outpatient (CLI) | payer SELFPAY ==
[2017-05-23] MEDS ORDERED: Sodium Chloride 0.9% 15 ML NEB ONE (19:53)
== END 2017-05-23 14:40 | disposition home or self-care (01) ==
LOC: WCC 14:39
PROVIDERS: ATTEND Family Medicine
DX: T81.89XA Other complications of procedures, not elsewhere classified, initial encounter (principal)
CPT/HCPCS: 97605; A4218

== ENCOUNTER 2017-05-26 11:40 | Outpatient (CLI) | payer SELFPAY ==
--- NOTE | 2017-05-26 21:03 | PRG ---
DATE OF SERVICE: 05/26/2017 SUBJECTIVE: Mr. Christie Madrid is a 51-year-old gentleman who presents to the Wound Center for evaluation of multiple wounds of the right foot subsequent to incision and drainage/irrigation and de bridement of abscesses of the right foot and ankle. The patient underwent the preceding procedure on 04/18/[address] Antonio Sharif. Negative pressure therapy was initiated intraoperatively and upon d ischarge from [facility], the patient was referred to the Wound Center for ass istance with dressing changes of the wound VAC. During the patient's hospital stay, Mr. Eliel gannon was seen in consultation by Infectious Diseases, who assessed the patient to have right foot cellu litis with pyomyositis. The patient was discharged to home on Levaquin. OBJECTIVE: VITAL SIGNS: Temperature 97.4, pulse 76, respirations 18, blood pressure 99/67. EXTREMITIES: Multiple wounds of the right foot and ankle are present. No purulent drainage is assoc iated with any of the wounds. No cellulitis of the right foot is appreciated. No maceration of the skin of the periwound of any of the wounds is noted. No significant edema of the right foot is appre ciated on exam today. ASSESSMENT AND PLAN: 1. Multiple wounds of right foot and ankle subsequent to incision and drainage/irrigation and debrid ement of abscesses of the right foot and ankle on 04/18/[address] Antonio Sharif. Negative pressure therapy was initiated intraoperatively and will be continued with dressing changes of the wound VAC h ere in the Wound Center. Arrangements will be made for the patient to be seen by Dr. Sharif. I eli l see Mr. Eliel Darnell in 2 weeks. 2. Gout. 3. Right foot cellulitis with pyomyositis.
== END 2017-05-26 11:41 | disposition home or self-care (01) ==
LOC: WCC 11:40
PROVIDERS: ATTEND Family Medicine
DX: T81.89XD Other complications of procedures, not elsewhere classified, subsequent encounter (principal); S91.001D Unspecified open wound, right ankle, subsequent encounter; S91.301D Unspecified open wound, right foot, subsequent encounter; L03.115 Cellulitis of right lower limb; M60.073 Infective myositis, right foot; B96.89 Other specified bacterial agents as the cause of diseases classified elsewhere; M10.9 Gout, unspecified
CPT/HCPCS: 97605

== ENCOUNTER 2017-05-30 13:12 | Outpatient (CLI) | payer SELFPAY | END 2017-05-30 13:13 | disposition home or self-care (01) | LOC: WCC 13:12 | PROVIDERS: ATTEND Family Medicine | DX: T81.89XD Other complications of procedures, not elsewhere classified, subsequent encounter (principal) | CPT/HCPCS: 97605; A4218 ==

== ENCOUNTER 2017-06-02 14:58 | Outpatient (CLI) | payer SELFPAY ==
[2017-06-02] MEDS ORDERED: Sodium Chloride 0.9% 15 ML NEB ONE (17:05)
== END 2017-06-02 14:59 | disposition home or self-care (01) ==
LOC: WCC 14:58
PROVIDERS: ATTEND Family Medicine
DX: S91.301D Unspecified open wound, right foot, subsequent encounter (principal)
CPT/HCPCS: 97602; A4218